=== PATIENT | female | born 1975 | race Caucasian/White ===

== ENCOUNTER → 2017-01-27 | Outpatient (CLI) | payer OTHER ==
[~2017-01-27] MED LIST: ALDOMET250 MG PO; ALLEGRA ALLERG180 M2 PO; ASPI-COR81 MG PO; ATIVAN1 MG PO; Augmentin Xr 101 TER PO; B121000 MCG/1 IM; BACTRIM DS 8001 TA1 PO; BACTRIM DS 8001 TAB PO; BUSPAR10 MG PO; CELEBREX50 MG PO; CELEXA40 MG PO; CETIRIZINE10 MG PO; CIPRO250 MG PO; CIPRO500 MG PO; CIPROFLOXACIN500 MG PO; CLARITIN10 MG PO; CLINDAMYCIN150 MG PO; COMPAZINE5 M1 PO; CYMBALTA60 MG PO; DELTASONE5 MG PO; DIFLUCAN150 MG PO; FLAGYL500 MG PO; FLEXERIL10 MG PO; FLEXERIL5 MG PO; FLONASE 0.05% 121 EA NAS; FLONASE ALLERG9.9 ML NAS; FLONASE0.05 MG/AC NS; FORTEO 250250 MCG/ML IM; FORTEO2.4 ML SQ; HUMIRA40 MG/0.1 SC; HYDROCODONE BIT1 T11 PO; HYDROXYCHLOROQ200 MG PO; IBUPROFEN600 MG PO; IMITREX100 MG PO; IRON325 M1 PO; K-DUR 20MEQ20 MEQ PO; K-DUR20 MEQ PO; KEFLEX500 MG PO; KLOR-CON M2020 ME1 PO; LASIX40 MG PO; LEVAQUIN750 MG PO; LEVOFLOXACIN500 MG PO; LIDODERM 5% PATC1 EA; LIDODERM 5% PATC1 EA PO; LOVENOX40 MG/0.4 SC; MEDROL DOSEPAK4 MG PO; METHOCARBAMOL500 MG PO; METHOTREXATE S2.5 MG PO; MULTI VITAMINS1 TAB PO; NAPROSYN500 MG PO; NATURE'S BLEND F1 MG PO; NEURONTIN300 MG PO; NEURONTIN800 MG PO; NORCO 325 MG-51 TAB PO; NORFLEX100 MG PO; NORVASC5 MG PO; ORPHENADRINE100 MG PO; OSCAL/D,OYSTER250 MG PO; OYSTER SHELL CA1 T20 PO; PEPCID20 MG PO; PERCOCET 325 MG1 TA2 PO; PERIACTIN4 MG PO; PHENERGAN25 M3 PO; PLAQUENIL200 MG PO; PREDNICOT10 MG PO; PREDNICOT20 MG PO; PREDNISONE10 MG PO; PREDNISONE2.5 MG PO; PREDNISONE20 M1 PO; PREDNISONE5 MG PO; PRENATAL1 TA2 PO; PREVACID30 M1 PO; PRILOSEC40 M1 PO; PRILOSEC40 MG PO; PYRIDIUM200 MG PO; ROBAXIN750 MG PO; ROBITUSSIN AC 110 ML PO; ROBITUSSIN DM 105 ML PO; SEASONIQUE1 TAB PO; SUBOXONE 4 MG-1 EACH SL; SUBOXONE 8 MG-21 TA1 SL; TORADOL10 MG PO; TRAMADOL HCL50 MG PO; TYLENOL W/CODEI1 TA2 PO; VANCOCIN125 MG PO; VIBRAMYCIN100 MG PO; VICODIN 5/500 505 MG; VICODIN 5/500 505 MG PO; VISTARIL50 MG PO; VITAMIN B COMPL1 CAP PO; VOLTAREN50 M1 PO; ZANTAC 150150 MG PO; ZITHROMAX Z PA250 MG PO; ZOFRAN ODT4 MG PO; ZOFRAN ODT4 MG SL; ZOFRAN4 MG PO
== END | disposition home or self-care (01) ==
LOC: RAD 11:00
DX: M81.0 Age-related osteoporosis without current pathological fracture (principal); M54.5 Low back pain; Z78.0 Asymptomatic menopausal state; G89.29 Other chronic pain

== ENCOUNTER 2017-02-13 13:42 | Emergency (ER) | payer OTHER ==
[~2017-02-13] VITALS: Wt 59.0 kg
[2017-02-13 13:50] VITALS: BP 113/72
[2017-02-13] MEDS ORDERED: PREDNISONE50 MG PO (14:13)
== END 2017-02-13 14:52 | disposition home or self-care (01) ==
LOC: ED 13:42
DX: I00 Rheumatic fever without heart involvement (principal); F17.200 Nicotine dependence, unspecified, uncomplicated; G89.29 Other chronic pain; M54.9 Dorsalgia, unspecified; M32.9 Systemic lupus erythematosus, unspecified; Z79.899 Other long term (current) drug therapy; Z98.51 Tubal ligation status; Z98.890 Other specified postprocedural states; Z91.041 Radiographic dye allergy status; Z88.8 Allergy status to other drugs, medicaments and biological substances; Z88.6 Allergy status to analgesic agent

== ENCOUNTER → 2017-02-25 | Outpatient (CLI) | payer OTHER ==
[~2017-02-25] MED LIST changes: +PREDNISONE50 MG PO
== END | disposition home or self-care (01) ==
LOC: LAB 14:01
PROVIDERS: Internal Medicine
DX: D50.9 Iron deficiency anemia, unspecified (principal); M05.79 Rheumatoid arthritis with rheumatoid factor of multiple sites without organ or systems involvement

== ENCOUNTER 2017-03-08 00:08 | Emergency (ER) | payer OTHER ==
[~2017-03-08] VITALS: Ht 172.7 cm; Wt 63.5 kg
[2017-03-08 00:58] LABS: BASO % 0.3 % (0.0-1.0); HEMATOCRIT 40.4 % (37.0-47.0); HEMOGLOBIN 13.4 g/dl (12.0-16.0); LYMPH % 9.3 % (27.0-41.0); MEAN CELL VOLUME 92.7 fl (81.0-99.0); MEAN CORPUSCULAR HGB 30.7 pg (27.0-31.0); MEAN CORPUSCULAR HGB CONC 33.2 g/dl (33.0-37.0); MEAN PLATELET VOLUME 10.1 fl (9.6-12.3); MONO # 0.2 10*3/uL (0.1-1.0); MONO % 1.7 % (3.0-9.0); NEUT # 9.9 10*3/uL (2.3-7.9); NEUT % 88.3 % (47.0-73.0); PLATELET COUNT AUTOMATED 386 10*3/uL (130-400); RED BLOOD COUNT 4.36 10*6/uL (4.10-5.10); RED CELL DISTRI WIDTH 12.3 % (0-14.5); WHITE BLOOD COUNT 11.2 10*3/uL (4.8-10.8)
[2017-03-08 01:14] LABS: URINE AMPHETAMINES < 1000 (1000ng/ml); URINE BARBITURATES < 200 (200ng/ml); URINE COCAINE > 300 (300ng/ml)
[2017-03-08 01:20] LABS: ALKALINE PHOSPHATASE 111 U/L (45-117); BILIRUBIN, TOTAL 0.2 mg/dl (0.2-1.0); BUN 8 mg/dl (7-24); CARBON DIOXIDE 28 mmol/L (21-32); CHLORIDE 107 mmol/L (98-107); CPK 121 U/L (26-192); EST GLOM FILT AFRICAN AMERICAN > 60 ml/min; GLUCOSE 102 mg/dL (65-99); LDH 165 U/L (84-246); MAGNESIUM 2.3 mg/dL (1.5-2.1); POTASSIUM 3.4 mmol/L (3.5-5.1); SGOT/AST 14 IU/L (3-35); SGPT/ALT 12 U/L (12-78); SODIUM 142 mmol/L (136-145)
[2017-03-08 01:21] LABS: CKMB 1.1 ng/ml (0.5-3.6); TROPONIN I 0.042 ng/ml (<0.045)
[2017-03-08 02:32] VITALS: BP 134/84
== END 2017-03-08 02:44 | disposition short-term general hospital (02) ==
LOC: ED 00:08
PROVIDERS: Physician Assistant
DX: R56.9 Unspecified convulsions (principal); F17.200 Nicotine dependence, unspecified, uncomplicated; Z91.041 Radiographic dye allergy status; Z88.6 Allergy status to analgesic agent; Z88.8 Allergy status to other drugs, medicaments and biological substances; Z79.899 Other long term (current) drug therapy

== ENCOUNTER 2017-05-31 08:29 | Emergency (ER) | payer OTHER ==
[~2017-05-31] VITALS: Wt 63.5 kg
[2017-05-31 09:06] LABS: BASO # 0.1 10*3/uL (0.0-0.1); BASO % 0.5 % (0.0-1.0); EOS % 0.2 % (1.0-4.0); HEMATOCRIT 42.3 % (37.0-47.0); LYMPH # 2.4 10*3/uL (1.3-4.4); LYMPH % 16.6 % (27.0-41.0); MEAN CELL VOLUME 89.6 fl (81.0-99.0); MEAN CORPUSCULAR HGB 29.7 pg (27.0-31.0); MEAN CORPUSCULAR HGB CONC 33.1 g/dl (33.0-37.0); MEAN PLATELET VOLUME 10.2 fl (9.6-12.3); MONO # 0.7 10*3/uL (0.1-1.0); MONO % 4.9 % (3.0-9.0); NEUT % 77.4 % (47.0-73.0); PLATELET COUNT AUTOMATED 387 10*3/uL (130-400); RED BLOOD COUNT 4.72 10*6/uL (4.10-5.10); RED CELL DISTRI WIDTH 12.5 % (0-14.5); WHITE BLOOD COUNT 14.2 10*3/uL (4.8-10.8)
[2017-05-31 09:24] LABS: ALKALINE PHOSPHATASE 104 U/L (45-117); BUN 10 mg/dl (7-24); CHLORIDE 104 mmol/L (98-107); CREATININE 0.76 mg/dL (0.55-1.02); ETHYL ALCOHOL < 3.0 mg/dl (<3); MAGNESIUM 2.2 mg/dL (1.5-2.1); POTASSIUM 3.3 mmol/L (3.5-5.1); SGOT/AST 14 IU/L (3-35); SGPT/ALT 10 U/L (12-78); SODIUM 136 mmol/L (136-145); TOTAL PROTEIN 8.2 gm/dL (6.4-8.2)
[2017-05-31 10:33] LABS: BILIRUBIN NEGATIVE (NEGATIVE); BLOOD NEGATIVE (NEGATIVE); CLARITY CLEAR (CLEAR); COLOR YELLOW (YELLOW); GLUCOSE NEGATIVE (NEGATIVE); KETONE NEGATIVE (NEGATIVE); LEUKO ESTERASE NEGATIVE (NEGATIVE); NITRITE NEGATIVE (NEGATIVE); SPECIFIC GRAVITY 1.025 (1.005-1.030); UROBILINOGEN 0.2 E.U./dl (0.2-1.0)
[2017-05-31 10:46] LABS: URINE AMPHETAMINES < 1000 (1000ng/ml); URINE BARBITURATES < 200 (200ng/ml); URINE BENZODIAZEPINES < 200 (200ng/ml); URINE CANNABINOIDS (THC) < 50 (50ng/ml); URINE COCAINE > 300 (300ng/ml); URINE METHADONE < 300 (300ng/ml); URINE OPIATES < 300 (300ng/ml)
[2017-05-31 10:54] LABS: URINE PHENCYCLIDINE < 25 (25ng/ml)
[2017-05-31 13:10] VITALS: BP 110/70
== END 2017-05-31 13:51 | disposition short-term general hospital (02) ==
LOC: ED 08:29
PROVIDERS: Emergency Medicine
DX: R56.9 Unspecified convulsions (principal); F19.10 Other psychoactive substance abuse, uncomplicated; M06.9 Rheumatoid arthritis, unspecified; F14.10 Cocaine abuse, uncomplicated; F17.210 Nicotine dependence, cigarettes, uncomplicated; Z91.041 Radiographic dye allergy status; Z88.6 Allergy status to analgesic agent; Z88.8 Allergy status to other drugs, medicaments and biological substances; Z79.899 Other long term (current) drug therapy

== ENCOUNTER → 2017-10-19 | Outpatient (CLI) | payer OTHER ==
[~2017-10-19] MED LIST changes: +Motrin,Rufen800 MG PO
== END | disposition home or self-care (01) ==
LOC: RAD 12:40
DX: M25.532 Pain in left wrist (principal); M25.432 Effusion, left wrist; W19.XXXA Unspecified fall, initial encounter; Y93.89 Activity, other specified; Y92.89 Other specified places as the place of occurrence of the external cause; Y99.8 Other external cause status

== ENCOUNTER 2017-10-20 15:52 | Emergency (ER) | payer OTHER ==
[~2017-10-20] VITALS: Ht 160 cm; Wt 53.5 kg
[~2017-10-20 15:52] MED LIST changes: -Motrin,Rufen800 MG PO
[2017-10-20 16:00] VITALS: BP 142/81
[2017-10-20] MEDS ORDERED: Motrin,Rufen800 MG PO (17:03)
== END 2017-10-20 16:51 | disposition home or self-care (01) ==
LOC: ED 15:52
DX: S60.212A Contusion of left wrist, initial encounter (principal); F17.200 Nicotine dependence, unspecified, uncomplicated; Z91.041 Radiographic dye allergy status; Z88.8 Allergy status to other drugs, medicaments and biological substances; Z79.899 Other long term (current) drug therapy; Z98.51 Tubal ligation status; W00.0XXA Fall on same level due to ice and snow, initial encounter; Y93.89 Activity, other specified; Y92.89 Other specified places as the place of occurrence of the external cause; Y99.8 Other external cause status

== ENCOUNTER 2018-02-23 18:15 | Inpatient (IN) | payer OTHER ==
[~2018-02-23] VITALS: Ht 162.5 cm; Wt 58.3 kg
--- NOTE | ~2018-02-23 | EKG ---
[place], [place] ELECTROCARDIOGRAM REPORT NAME: TAM SHETTY UNIT #: [id number] ROOM: [facility] DOCTOR: MICHELINE HOGUE MD BIRTHDATE: [birth year] DOS: 02/23/2018 TIME: 19:52:58 RATE AND RHYTHM: Normal sinus rhythm at 99 beats per minute. NM interval 112 milliseconds, QRS duration 97 milliseconds, corrected QT interval 457 milliseconds. QRS axis 87. IMPRESSION: Normal EKG. MICHELINE HOGUE MD CM:EKGRPT:ELECTROCARDIOGRAM REPORT [id number] MICEHLINE HOGUE MD
[~2018-02-23 18:15] MED LIST changes: +Bactroban Oint22 GM T; +Motrin,Rufen800 MG PO; +SEPTDS PO
[2018-02-23 18:20] VITALS: BP 162/89
[2018-02-23 20:02] LABS: BASO # 0.1 10*3/uL (0.0-0.1); BASO % 0.5 % (0.0-1.0); EOS % 0.1 % (1.0-4.0); HEMATOCRIT 44.4 % (37.0-47.0); HEMOGLOBIN 14.6 g/dl (12.0-16.0); LYMPH # 2.8 10*3/uL (1.3-4.4); LYMPH % 25.5 % (27.0-41.0); MEAN CELL VOLUME 91.5 fl (81.0-99.0); MEAN CORPUSCULAR HGB 30.1 pg (27.0-31.0); MEAN CORPUSCULAR HGB CONC 32.9 g/dl (33.0-37.0); MEAN PLATELET VOLUME 9.9 fl (9.6-12.3); MONO # 0.5 10*3/uL (0.1-1.0); MONO % 4.7 % (3.0-9.0); NEUT # 7.6 10*3/uL (2.3-7.9); NEUT % 68.9 % (47.0-73.0); PLATELET COUNT AUTOMATED 396 10*3/uL (130-400); RED BLOOD COUNT 4.85 10*6/uL (4.10-5.10); RED CELL DISTRI WIDTH 14.4 % (0-14.5)
[2018-02-23 20:13] LABS: ACT PARTIAL THROMBO TIME 26.3 SECONDS (20.8-31.5); INTERNATIONAL NORM RATIO 0.9 (2.0-3.5)
[2018-02-23 20:22] LABS: BILIRUBIN NEGATIVE (NEGATIVE); BLOOD TRACE-LYSED (NEGATIVE); CLARITY CLEAR (CLEAR); COLOR YELLOW (YELLOW); GLUCOSE NEGATIVE (NEGATIVE); KETONE NEGATIVE (NEGATIVE); LEUKO ESTERASE NEGATIVE (NEGATIVE); NITRITE NEGATIVE (NEGATIVE); PH 5.5 (5.0-9.0); SPECIFIC GRAVITY >= 1.030 (1.005-1.030)
[2018-02-23 20:31] LABS: BACTERIA 2+; MUCOUS 1+
[2018-02-23 20:59] LABS: ALBUMIN 3.8 gm/dl (3.1-4.5); ALKALINE PHOSPHATASE 199 U/L (45-117); BUN 10 mg/dl (7-24); CHLORIDE 104 mmol/L (98-107); CREATININE 0.72 mg/dL (0.55-1.02); LIPASE 93 U/L (73-393); POTASSIUM 3.6 mmol/L (3.5-5.1); SGOT/AST 160 IU/L (3-35); SGPT/ALT 199 U/L (12-78); SODIUM 137 mmol/L (136-145); TOTAL PROTEIN 8.3 gm/dL (6.4-8.2); TROPONIN I 0.015 ng/ml (<0.045)
[2018-02-24 00:02] VITALS: BP 121/88
[2018-02-24] MEDS ORDERED: OMEPRAZOLE40 MG PO (00:30)
[2018-02-24] MEDS ORDERED: DIAZEPAM10 M1 PO (00:34)
[2018-02-24] MEDS ORDERED: GABAPENTIN TAB600 MG PO (00:36)
[2018-02-24] MEDS ORDERED: VENLAFAXINE HY150 M2 PO (00:37)
[2018-02-24] MEDS ORDERED: MOTRIN IB200 M1 PO (00:38)
[2018-02-24 03:03] LABS: HEMATOCRIT 39.6 % (37.0-47.0); HEMOGLOBIN 13.2 g/dl (12.0-16.0); MEAN CELL VOLUME 90.6 fl (81.0-99.0); MEAN CORPUSCULAR HGB 30.2 pg (27.0-31.0); MEAN CORPUSCULAR HGB CONC 33.3 g/dl (33.0-37.0); MEAN PLATELET VOLUME 9.7 fl (9.6-12.3); PLATELET COUNT AUTOMATED 370 10*3/uL (130-400); RED BLOOD COUNT 4.37 10*6/uL (4.10-5.10); RED CELL DISTRI WIDTH 14.3 % (0-14.5); WHITE BLOOD COUNT 11.4 10*3/uL (4.8-10.8)
[2018-02-24 03:26] LABS: ALBUMIN 3.5 gm/dl (3.1-4.5); ALKALINE PHOSPHATASE 176 U/L (45-117); BUN 9 mg/dl (7-24); CHLORIDE 107 mmol/L (98-107); CHOLESTEROL 90 mg/dL (<200); CREATININE 0.63 mg/dL (0.55-1.02); HDL CHOLESTEROL 45 mg/dl (40-60); LDL CHOLESTEROL 32 mg/dL (9-159); PHOSPHOROUS 2.6 mg/dL (2.5-4.9); POTASSIUM 3.8 mmol/L (3.5-5.1); SGOT/AST 130 IU/L (3-35); SGPT/ALT 173 U/L (12-78); SODIUM 138 mmol/L (136-145); TOTAL PROTEIN 7.6 gm/dL (6.4-8.2); TRIGLYCERIDES 64 mg/dl (<150); VLDL CHOLESTEROL 13 mg/dL (6-40)
[2018-02-24 03:30] LABS: TOTAL CELLS COUNTED 100 #CELLS
[2018-02-24 03:31] LABS: PLATELET SUFFICIENCY NORMAL (NORMAL)
[2018-02-24 03:35] LABS: THYROID STIM HORMONE (HS) 0.312 uIU/ml (0.358-4.75)
[2018-02-24 07:14] LABS: VITAMIN D, 25-HYDROXY 13.3 ng/mL (30-100)
[2018-02-24 08:00] VITALS: BP 115/60
[2018-02-24 12:00] VITALS: BP 115/63
[2018-02-24 16:00] VITALS: BP 122/68
[2018-02-24 20:00] VITALS: BP 123/68
[2018-02-25] VITALS: BP 128/80
[2018-02-25 06:43] LABS: BASO % 0.3 % (0.0-1.0); HEMATOCRIT 36.4 % (37.0-47.0); HEMOGLOBIN 11.9 g/dl (12.0-16.0); LYMPH # 3.2 10*3/uL (1.3-4.4); LYMPH % 27.6 % (27.0-41.0); MEAN CELL VOLUME 92.4 fl (81.0-99.0); MEAN CORPUSCULAR HGB 30.2 pg (27.0-31.0); MEAN CORPUSCULAR HGB CONC 32.7 g/dl (33.0-37.0); MEAN PLATELET VOLUME 10.8 fl (9.6-12.3); MONO # 0.8 10*3/uL (0.1-1.0); MONO % 6.4 % (3.0-9.0); NEUT # 7.7 10*3/uL (2.3-7.9); NEUT % 65.4 % (47.0-73.0); PLATELET COUNT AUTOMATED 367 10*3/uL (130-400); RED BLOOD COUNT 3.94 10*6/uL (4.10-5.10); RED CELL DISTRI WIDTH 14.5 % (0-14.5); WHITE BLOOD COUNT 11.7 10*3/uL (4.8-10.8)
[2018-02-25 07:01] LABS: ALBUMIN 3.2 gm/dl (3.1-4.5); BUN 10 mg/dl (7-24); CHLORIDE 109 mmol/L (98-107); POTASSIUM 3.5 mmol/L (3.5-5.1); SODIUM 141 mmol/L (136-145)
[2018-02-25 07:03] LABS: ALKALINE PHOSPHATASE 145 U/L (45-117); CREATININE 0.57 mg/dL (0.55-1.02); SGOT/AST 60 IU/L (3-35); SGPT/ALT 105 U/L (12-78); TOTAL PROTEIN 6.7 gm/dL (6.4-8.2)
[2018-02-25 08:00] VITALS: BP 109/67
[2018-02-25 09:05] LABS: HEPATITIS B SURFACE AG Negative (Negative)
[2018-02-25 10:40] LABS: HEPATITIS C VIRUS ANTIBODY >11.0 s/co (0.0-0.9)
[2018-02-25 12:00] VITALS: BP 127/66
[2018-02-25] MEDS ORDERED: ALENDRONATE SOD70 M1 PO (14:10)
[2018-02-25] MEDS ORDERED: PREDNISONE20 M1 PO (14:10)
[2018-02-25] MEDS ORDERED: SEPTDS PO (14:10)
[2018-02-25] MEDS ORDERED: LORAZEPAM0.5 MG PO (14:10)
[2018-02-25] MEDS ORDERED: VITAMIN D-32000 UNIT PO (14:10)
[2018-02-26 06:08] LABS: AFP TUMOR MARKER 002253 1.5 ng/mL (0.0-8.3)
[2018-02-26 19:06] LABS: HEPATITIS C QNT 3090000 IU/mL (.)
[2018-02-27 20:06] LABS: HCV LOG10 6.859 (.); HEPATITIS C QUANTITATION 7220000 IU/mL (.)
[2018-03-01 09:04] LABS: HIV 1 & 2 AB NOTE Negative (.); HIV 1 AB Negative (Negative); HIV 1+2 AB + HIV1 P24 AG Reactive (Non Reactive); HIV 2 AB Negative (Negative)
== END 2018-02-25 15:02 | disposition home or self-care (01) | DRG 545 ==
LOC: ED 18:15 → 5E 22:50 → EDHOLD 22:50 → 5E 23:25
PROVIDERS: Internal Medicine; Internal Medicine Hospice and Palliative Medicine; Nurse Practitioner Family
DX: M06.09 Rheumatoid arthritis without rheumatoid factor, multiple sites (principal); R65.11 Systemic inflammatory response syndrome (SIRS) of non-infectious origin with acute organ dysfunction; E87.8 Other disorders of electrolyte and fluid balance, not elsewhere classified; M32.9 Systemic lupus erythematosus, unspecified; E83.41 Hypermagnesemia; G62.9 Polyneuropathy, unspecified; M75.01 Adhesive capsulitis of right shoulder; D72.810 Lymphocytopenia; D72.829 Elevated white blood cell count, unspecified; R74.0 Nonspecific elevation of levels of transaminase and lactic acid dehydrogenase [LDH]; R73.9 Hyperglycemia, unspecified; M54.9 Dorsalgia, unspecified; M81.0 Age-related osteoporosis without current pathological fracture; I73.00 Raynaud's syndrome without gangrene; R29.898 Other symptoms and signs involving the musculoskeletal system; K21.9 Gastro-esophageal reflux disease without esophagitis; G89.29 Other chronic pain; R31.29 Other microscopic hematuria; R82.71 Bacteriuria; D64.9 Anemia, unspecified; R76.8 Other specified abnormal immunological findings in serum; F41.9 Anxiety disorder, unspecified; Z71.6 Tobacco abuse counseling; Z98.51 Tubal ligation status; Z87.891 Personal history of nicotine dependence; Z82.3 Family history of stroke; Z83.6 Family history of other diseases of the respiratory system; Z88.8 Allergy status to other drugs, medicaments and biological substances; Z91.041 Radiographic dye allergy status; Z79.899 Other long term (current) drug therapy; R07.89 Other chest pain; R09.1 Pleurisy

== ENCOUNTER → 2018-03-05 | Outpatient (CLI) | payer OTHER ==
[~2018-03-05] MED LIST changes: +ALENDRONATE SOD70 M1 PO; +DIAZEPAM10 M1 PO; +GABAPENTIN TAB600 MG PO; +LORAZEPAM0.5 MG PO; +MOTRIN IB200 M1 PO; +OMEPRAZOLE40 MG PO; +TYLENOL325 M1 PO; +VENLAFAXINE HY150 M2 PO; +VITAMIN D-32000 UNIT PO
[2018-03-07 13:07] LABS: HIV 1+2 AB + HIV1 P24 AG Non Reactive (Non Reactive)
== END | disposition home or self-care (01) ==
LOC: LAB 16:01
PROVIDERS: Internal Medicine
DX: Z21 Asymptomatic human immunodeficiency virus [HIV] infection status (principal)

== ENCOUNTER → 2018-03-12 | Outpatient (CLI) | payer OTHER | END | disposition home or self-care (01) | LOC: LAB 14:27 | DX: M79.674 Pain in right toe(s) (principal); Z21 Asymptomatic human immunodeficiency virus [HIV] infection status ==

== ENCOUNTER 2018-03-14 07:01 | Emergency (ER) | payer OTHER ==
[~2018-03-14] VITALS: Ht 162.5 cm; Wt 61.2 kg
[2018-03-14 07:01] VITALS: BP 129/77
[~2018-03-14 07:01] MED LIST changes: -TYLENOL325 M1 PO
[2018-03-14] MEDS ORDERED: PREDNISONE10 MG PO (08:39)
[2018-03-14] MEDS ORDERED: TYLENOL325 M1 PO (08:39)
== END 2018-03-14 08:47 | disposition home or self-care (01) ==
LOC: ED 07:01
DX: M06.9 Rheumatoid arthritis, unspecified (principal); F17.200 Nicotine dependence, unspecified, uncomplicated; G89.29 Other chronic pain; K21.9 Gastro-esophageal reflux disease without esophagitis; E78.00 Pure hypercholesterolemia, unspecified; F14.10 Cocaine abuse, uncomplicated; G62.9 Polyneuropathy, unspecified; M32.9 Systemic lupus erythematosus, unspecified; Z98.51 Tubal ligation status; Z98.890 Other specified postprocedural states; Z79.899 Other long term (current) drug therapy; Z91.041 Radiographic dye allergy status; Z88.6 Allergy status to analgesic agent; Z88.8 Allergy status to other drugs, medicaments and biological substances

== ENCOUNTER 2018-05-30 18:45 | Emergency (ER) | payer OTHER ==
[~2018-05-30] VITALS: Ht 160 cm; Wt 59.0 kg
[~2018-05-30 18:45] MED LIST changes: +KETOROLAC10 MG PO; +TYLENOL325 M1 PO
[2018-06-21] MEDS ORDERED: KETOROLAC10 MG PO (16:23)
[2018-06-21] MEDS ORDERED: MEDROL DOSEPAK4 MG PO (16:34)
[2018-07-22] MEDS ORDERED: Zofran4 MG SL (20:13)
[2018-07-22] MEDS ORDERED: IBU800 MG PO (20:13)
[2018-08-08] MEDS ORDERED: Motrin,Rufen800 MG PO (17:39)
[2018-08-08] MEDS ORDERED: PREDNISONE20 M1 PO (17:39)
== END 2018-05-30 19:23 | disposition left against medical advice (07) ==
LOC: ED 18:45
DX: T65.91XA Toxic effect of unspecified substance, accidental (unintentional), initial encounter (principal); F17.200 Nicotine dependence, unspecified, uncomplicated; Z91.041 Radiographic dye allergy status; Z88.8 Allergy status to other drugs, medicaments and biological substances; Z79.899 Other long term (current) drug therapy; Z53.21 Procedure and treatment not carried out due to patient leaving prior to being seen by health care provider; Y92.89 Other specified places as the place of occurrence of the external cause

== ENCOUNTER 2018-07-06 15:53 | Emergency (ER) | payer OTHER ==
[~2018-07-06] VITALS: Ht 162.5 cm; Wt 61.2 kg
[2018-07-06 15:54] VITALS: BP 145/80
[2018-07-06] MEDS ORDERED: PREDNISONE20 M1 PO (17:27)
[2018-07-06] MEDS ORDERED: IBUPROFEN600 MG PO (17:27)
[2018-07-22] MEDS ORDERED: IBU800 MG PO (20:13)
[2018-07-22] MEDS ORDERED: Zofran4 MG SL (20:13)
[2018-08-08] MEDS ORDERED: PREDNISONE20 M1 PO (17:39)
[2018-08-08] MEDS ORDERED: Motrin,Rufen800 MG PO (17:39)
== END 2018-07-06 17:30 | disposition home or self-care (01) ==
LOC: ED 15:53
DX: M06.9 Rheumatoid arthritis, unspecified (principal); F17.200 Nicotine dependence, unspecified, uncomplicated; Z91.041 Radiographic dye allergy status; Z88.8 Allergy status to other drugs, medicaments and biological substances; Z79.899 Other long term (current) drug therapy; Z98.51 Tubal ligation status

== ENCOUNTER 2018-07-13 17:39 | Inpatient (IN) | payer OTHER ==
[~2018-07-13] VITALS: Ht 162.5 cm; Wt 64.1 kg
--- NOTE | ~2018-07-13 | PR ---
[place], [place] PROGRESS NOTE NAME: TAM SHETTY [facility] #: [id number] UNIT #: [id number] ROOM: 501 DOCTOR: SHANNON DUBOSE MD BIRTHDATE: [birth year] DOS: 07/17/2018 SUBJECTIVE: The patient has been admitted with cellulitis and abscess of the right axilla with MRSA infection. She is gradually getting better and no fever or chills. No chest pain. She is still having some swelling of the right arm, but it is getting gradually better and she denies having too much pain, no difficulty breathing, no nausea, no vomiting, no fever or chills. The patient had recurring infection of MRSA. She has leukocytosis, tachycardia, mild protein malnutrition, hypokalemia, systemic lupus erythematosus, rheumatoid arthritis and the patient has history of tobacco abuse and drug abuse. OBJECTIVE: GENERAL: On examination, the patient is conscious, alert and oriented, does not seem to be in any distress. The wound in the arm is having some discharge. There is some swelling of the right arm below the wound. I advised the patient to keep it elevated. VITAL SIGNS: Her blood pressure is 129/82, pulse is 126, respirations 18, temperature 98.7. CHEST: Clear. HEART: Regular. ABDOMEN: Soft. LABORATORY DATA: Her creatinine is 0.54. Vancomycin level 13.2. The patient is gradually improving. SHANNON DUBOSE MD CM:PNTRANS 1327 [id number] SHANNON DUBOSE MD 07/26/18 0752 interface
--- NOTE | ~2018-07-13 | PR ---
[place], [place] PROGRESS NOTE NAME: TAM SHETTY [facility] #: [id number] UNIT #: [id number] ROOM: 501 DOCTOR: SHANNON DUBOSE MD BIRTHDATE: [birth year] DOS: SUBJECTIVE: The patient has been admitted to hospital with abscess and cellulitis of the right axilla, right arm. She is progressively getting better. Discharge from her wound is decreasing and the swelling of her right arm is much better and pain is much better and her CBC today showed white count 13,400, hemoglobin 12.7, hematocrit 39 showing much improvement and BUN is 4, creatinine 0.54. OBJECTIVE: VITAL SIGNS: Her blood pressure 106/77, pulse 99, respirations 20, temperature 98.5. CHEST: Clear. HEART: Regular. ABDOMEN: Soft. The patient will possibly be discharged tomorrow. SHANNON DUBOSE MD CM:PNCHRIST 1059 24 SHANNON DUBOSE MD 07/18/18 182 interface
[2018-07-13 17:40] VITALS: BP 135/85
[2018-07-13 18:57] LABS: BASO # 0.1 10*3/uL (0.0-0.1); BASO % 0.4 % (0.0-1.0); EOS # 0.1 10*3/uL (0.0-0.4); EOS % 0.5 % (1.0-4.0); HEMATOCRIT 37.6 % (37.0-47.0); HEMOGLOBIN 12.7 g/dl (12.0-16.0); LYMPH # 3.2 10*3/uL (1.3-4.4); LYMPH % 17.2 % (27.0-41.0); MEAN CELL VOLUME 94.9 fl (81.0-99.0); MEAN CORPUSCULAR HGB 32.1 pg (27.0-31.0); MEAN CORPUSCULAR HGB CONC 33.8 g/dl (33.0-37.0); MEAN PLATELET VOLUME 9.8 fl (9.6-12.3); MONO # 1.1 10*3/uL (0.1-1.0); NEUT % 74.8 % (47.0-73.0); PLATELET COUNT AUTOMATED 402 10*3/uL (130-400); RED BLOOD COUNT 3.96 10*6/uL (4.10-5.10); WHITE BLOOD COUNT 18.7 10*3/uL (4.8-10.8)
[2018-07-13 19:13] LABS: ALBUMIN 3.4 gm/dl (3.1-4.5); ALKALINE PHOSPHATASE 125 U/L (45-117); BUN 7 mg/dl (7-24); CHLORIDE 106 mmol/L (98-107); CREATININE 0.59 mg/dL (0.55-1.02); POTASSIUM 3.2 mmol/L (3.5-5.1); SGOT/AST 45 IU/L (3-35); SGPT/ALT 81 U/L (12-78); SODIUM 138 mmol/L (136-145); TOTAL PROTEIN 7.1 gm/dL (6.4-8.2)
[2018-07-13 20:21] LABS: BILIRUBIN NEGATIVE (NEGATIVE); BLOOD NEGATIVE (NEGATIVE); CLARITY CLEAR (CLEAR); COLOR YELLOW (YELLOW); GLUCOSE NEGATIVE (NEGATIVE); KETONE NEGATIVE (NEGATIVE); LEUKO ESTERASE NEGATIVE (NEGATIVE); NITRITE NEGATIVE (NEGATIVE); PH 6.5 (5.0-9.0); SPECIFIC GRAVITY < 1.005 (1.005-1.030); UROBILINOGEN 0.2 E.U./dl (0.2-1.0)
[2018-07-13 20:29] LABS: BACTERIA TRACE
[2018-07-13 20:30] LABS: RBC 0-2 rbc/hpf (0-2)
[2018-07-13 21:41] VITALS: BP 121/82
[2018-07-13 22:30] VITALS: BP 123/73
[2018-07-13 22:39] VITALS: BP 123/73
[2018-07-13] MEDS ORDERED: EFFEXOR XR150 M1 PO (22:54)
[2018-07-13] MEDS ORDERED: OSCAL/D,OYSTER250 MG PO (22:55)
[2018-07-13] MEDS ORDERED: TRAZODONE100 MG PO (22:55)
[2018-07-13] MEDS ORDERED: IRON325 M1 PO (22:56)
[2018-07-14] VITALS (8 sets, daily range): BP systolic 112–139; BP diastolic 62–82
[2018-07-14 06:31] LABS: BASO # 0.1 10*3/uL (0.0-0.1); BASO % 0.2 % (0.0-1.0); EOS # 0.1 10*3/uL (0.0-0.4); EOS % 0.2 % (1.0-4.0); HEMATOCRIT 35.2 % (37.0-47.0); HEMOGLOBIN 11.6 g/dl (12.0-16.0); LYMPH # 2.4 10*3/uL (1.3-4.4); MEAN CELL VOLUME 96.4 fl (81.0-99.0); MEAN CORPUSCULAR HGB 31.8 pg (27.0-31.0); MEAN PLATELET VOLUME 9.7 fl (9.6-12.3); MONO # 1.2 10*3/uL (0.1-1.0); MONO % 6.2 % (3.0-9.0); NEUT # 16.1 10*3/uL (2.3-7.9); NEUT % 80.3 % (47.0-73.0); PLATELET COUNT AUTOMATED 336 10*3/uL (130-400); RED BLOOD COUNT 3.65 10*6/uL (4.10-5.10); RED CELL DISTRI WIDTH 14.1 % (0-14.5); WHITE BLOOD COUNT 20.1 10*3/uL (4.8-10.8)
[2018-07-14 07:05] LABS: ALBUMIN 2.7 gm/dl (3.1-4.5); BUN 6 mg/dl (7-24); CHLORIDE 108 mmol/L (98-107); CHOLESTEROL 52 mg/dL (<200); CREATININE 0.41 mg/dL (0.55-1.02); HDL CHOLESTEROL 47 mg/dl (40-60); POTASSIUM 3.9 mmol/L (3.5-5.1); SGOT/AST 49 IU/L (3-35); SGPT/ALT 71 U/L (12-78); SODIUM 141 mmol/L (136-145)
[2018-07-14 07:13] LABS: ALKALINE PHOSPHATASE 104 U/L (45-117); TOTAL PROTEIN 5.9 gm/dL (6.4-8.2); TRIGLYCERIDES 47 mg/dl (<150)
[2018-07-14 09:39] LABS: VITAMIN D, 25-HYDROXY 51.4 ng/mL (30-100)
[2018-07-15] VITALS: BP 131/70
[2018-07-15 08:00] VITALS: BP 130/70
[2018-07-15 12:00] VITALS: BP 130/78
[2018-07-15 16:00] VITALS: BP 114/71
[2018-07-15 20:00] VITALS: BP 124/102
[2018-07-16] VITALS: BP 122/73
[2018-07-16 08:00] VITALS: BP 130/70
[2018-07-16 12:00] VITALS: BP 113/75
[2018-07-16 16:00] VITALS: BP 135/81
[2018-07-16 20:00] VITALS: BP 120/77
[2018-07-17] VITALS: BP 104/59
[2018-07-17 07:19] LABS: BUN 4 mg/dl (7-24); CREATININE 0.54 mg/dL (0.55-1.02)
[2018-07-17 08:00] VITALS: BP 110/66
[2018-07-17 12:00] VITALS: BP 129/82
[2018-07-17 16:00] VITALS: BP 116/82
[2018-07-17 20:00] VITALS: BP 129/78
[2018-07-18] VITALS: BP 117/74
[2018-07-18 06:39] LABS: HEMOGLOBIN 12.6 g/dl (12.0-16.0); MEAN CELL VOLUME 96.5 fl (81.0-99.0); MEAN CORPUSCULAR HGB 31.2 pg (27.0-31.0); MEAN CORPUSCULAR HGB CONC 32.3 g/dl (33.0-37.0); MEAN PLATELET VOLUME 10.3 fl (9.6-12.3); PLATELET COUNT AUTOMATED 353 10*3/uL (130-400); RED BLOOD COUNT 4.04 10*6/uL (4.10-5.10); RED CELL DISTRI WIDTH 14.1 % (0-14.5); WHITE BLOOD COUNT 13.4 10*3/uL (4.8-10.8)
[2018-07-18 07:26] LABS: ATYPICAL LYMPHS 1 % (0-0); PLATELET SUFFICIENCY NORMAL (NORMAL); TOTAL CELLS COUNTED 100 #CELLS
[2018-07-18 08:00] VITALS: BP 106/77
[2018-07-18 11:57] VITALS: BP 118/74
[2018-07-18 16:00] VITALS: BP 129/84
[2018-07-18 20:00] VITALS: BP 136/89
[2018-07-19] VITALS: BP 111/74
[2018-07-19 08:00] VITALS: BP 120/85
[2018-07-19 12:00] VITALS: BP 134/94
[2018-07-19 16:00] VITALS: BP 121/78
[2018-07-19] MEDS ORDERED: PERCOCET 5-3251 EACH PO (18:32)
[2018-07-19] MEDS ORDERED: DOXYCYCLINE100 M3 PO (18:32)
[2018-07-19] MEDS ORDERED: TRAZODONE100 MG PO (18:32)
[2018-07-22] MEDS ORDERED: IBU800 MG PO (20:13)
[2018-07-22] MEDS ORDERED: Zofran4 MG SL (20:13)
[2018-08-08] MEDS ORDERED: Motrin,Rufen800 MG PO (17:39)
[2018-08-08] MEDS ORDERED: PREDNISONE20 M1 PO (17:39)
== END 2018-07-19 19:15 | disposition home or self-care (01) | DRG 872 ==
LOC: ED 17:39 → EDHOLD 22:01 → 5E 22:01
PROVIDERS: Emergency Medicine; Internal Medicine
PROC: 0H9BXZZ Drainage of Right Upper Arm Skin, External Approach (ICD-10-PCS; principal; 2018-07-14)
DX: A41.9 Sepsis, unspecified organism (principal); L03.111 Cellulitis of right axilla; E44.1 Mild protein-calorie malnutrition; F33.9 Major depressive disorder, recurrent, unspecified; L02.411 Cutaneous abscess of right axilla; E87.6 Hypokalemia; M32.8 Other forms of systemic lupus erythematosus; I73.00 Raynaud's syndrome without gangrene; M81.8 Other osteoporosis without current pathological fracture; E86.0 Dehydration; R07.89 Other chest pain; M06.9 Rheumatoid arthritis, unspecified; M54.9 Dorsalgia, unspecified; G89.29 Other chronic pain; G62.9 Polyneuropathy, unspecified; K21.9 Gastro-esophageal reflux disease without esophagitis; E55.9 Vitamin D deficiency, unspecified; R73.9 Hyperglycemia, unspecified; F17.210 Nicotine dependence, cigarettes, uncomplicated; B00.9 Herpesviral infection, unspecified; A49.02 Methicillin resistant Staphylococcus aureus infection, unspecified site; Z98.51 Tubal ligation status; Z82.49 Family history of ischemic heart disease and other diseases of the circulatory system; Z82.5 Family history of asthma and other chronic lower respiratory diseases; Z71.6 Tobacco abuse counseling; Z88.8 Allergy status to other drugs, medicaments and biological substances; Z91.041 Radiographic dye allergy status; Z79.899 Other long term (current) drug therapy; Z68.24 Body mass index [BMI] 24.0-24.9, adult

== ENCOUNTER 2018-07-30 17:47 | Emergency (ER) | payer SELFPAY ==
[~2018-07-30] VITALS: Wt 63.5 kg
[~2018-07-30 17:47] MED LIST changes: +DOXYCYCLINE100 M3 PO; +EFFEXOR XR150 M1 PO; +IBU800 MG PO; +PERCOCET 5-3251 EACH PO; +TRAZODONE100 MG PO; +Zofran4 MG SL
[2018-07-30 17:48] VITALS: BP 142/93
[2018-07-30] MEDS ORDERED: PREDNISONE10 MG PO (17:52)
[2018-08-08] MEDS ORDERED: PREDNISONE20 M1 PO (17:39)
[2018-08-08] MEDS ORDERED: Motrin,Rufen800 MG PO (17:39)
== END 2018-07-30 18:02 | disposition home or self-care (01) ==
LOC: ED 17:47
DX: M06.9 Rheumatoid arthritis, unspecified (principal); R03.0 Elevated blood-pressure reading, without diagnosis of hypertension; G89.29 Other chronic pain; K21.9 Gastro-esophageal reflux disease without esophagitis; M32.9 Systemic lupus erythematosus, unspecified; F17.200 Nicotine dependence, unspecified, uncomplicated; Z91.041 Radiographic dye allergy status; Z88.8 Allergy status to other drugs, medicaments and biological substances; Z79.1 Long term (current) use of non-steroidal anti-inflammatories (NSAID); Z79.899 Other long term (current) drug therapy

== ENCOUNTER 2018-09-01 15:35 | Emergency (ER) | payer OTHER ==
[~2018-09-01] VITALS: Ht 162.5 cm; Wt 65.8 kg
[2018-09-01 15:36] VITALS: BP 146/88
[2018-09-01] MEDS ORDERED: IBU800 MG PO (16:20)
[2018-09-01] MEDS ORDERED: PREDNISONE50 MG PO (16:20)
== END 2018-09-01 16:15 | disposition home or self-care (01) ==
LOC: ED 15:35
DX: M06.9 Rheumatoid arthritis, unspecified (principal); F17.200 Nicotine dependence, unspecified, uncomplicated; Z91.041 Radiographic dye allergy status; Z88.8 Allergy status to other drugs, medicaments and biological substances; Z79.899 Other long term (current) drug therapy; Z98.51 Tubal ligation status

== ENCOUNTER 2018-09-10 14:24 | Emergency (ER) | payer OTHER ==
[~2018-09-10] VITALS: Ht 162.5 cm; Wt 63.5 kg
[2018-09-10 14:26] VITALS: BP 133/87
[2018-09-10] MEDS ORDERED: MEDROL DOSEPAK4 MG PO (16:48)
[2018-09-10] MEDS ORDERED: OMNICEF300 MG PO (16:48)
== END 2018-09-10 17:10 | disposition home or self-care (01) ==
LOC: ED 14:24
DX: J32.9 Chronic sinusitis, unspecified (principal); M54.6 Pain in thoracic spine; M54.5 Low back pain; K02.9 Dental caries, unspecified; G89.29 Other chronic pain; K21.9 Gastro-esophageal reflux disease without esophagitis; M06.9 Rheumatoid arthritis, unspecified; M81.0 Age-related osteoporosis without current pathological fracture; F17.200 Nicotine dependence, unspecified, uncomplicated; Z91.041 Radiographic dye allergy status; Z88.8 Allergy status to other drugs, medicaments and biological substances; Z79.899 Other long term (current) drug therapy

== ENCOUNTER 2018-09-29 13:25 | Emergency (ER) | payer OTHER ==
[~2018-09-29] VITALS: Ht 162.5 cm; Wt 63.5 kg
[~2018-09-29 13:25] MED LIST changes: +OMNICEF300 MG PO
[2018-09-29 13:27] VITALS: BP 140/95
[2018-09-29] MEDS ORDERED: PREDNISONE10 MG PO (16:53)
== END 2018-09-29 17:02 | disposition home or self-care (01) ==
LOC: ED 13:25
DX: G89.29 Other chronic pain (principal); M25.562 Pain in left knee; M25.561 Pain in right knee; M25.542 Pain in joints of left hand; M25.541 Pain in joints of right hand; M06.9 Rheumatoid arthritis, unspecified; F17.200 Nicotine dependence, unspecified, uncomplicated; Z91.041 Radiographic dye allergy status; Z88.8 Allergy status to other drugs, medicaments and biological substances; Z88.6 Allergy status to analgesic agent; Z79.899 Other long term (current) drug therapy

== ENCOUNTER → 2018-10-04 | Outpatient (CLI) | payer OTHER ==
[~2018-10-04] MED LIST changes: +CLINDAMYCIN HC300 MG PO
[2018-10-04 20:38] LABS: HEMATOCRIT 38.3 % (37.0-47.0); HEMOGLOBIN 12.9 g/dl (12.0-16.0); MEAN CELL VOLUME 97.2 fl (81.0-99.0); MEAN CORPUSCULAR HGB 32.7 pg (27.0-31.0); MEAN CORPUSCULAR HGB CONC 33.7 g/dl (33.0-37.0); MEAN PLATELET VOLUME 9.6 fl (9.6-12.3); PLATELET COUNT AUTOMATED 529 10*3/uL (130-400); RED BLOOD COUNT 3.94 10*6/uL (4.10-5.10); RED CELL DISTRI WIDTH 14.3 % (0-14.5); WHITE BLOOD COUNT 17.6 10*3/uL (4.8-10.8)
[2018-10-04 20:53] LABS: ALBUMIN 3.2 gm/dl (3.1-4.5); ALKALINE PHOSPHATASE 149 U/L (45-117); BUN 18 mg/dl (7-24); CHLORIDE 109 mmol/L (98-107); CREATININE 0.68 mg/dL (0.55-1.02); POTASSIUM 3.6 mmol/L (3.5-5.1); SGOT/AST 35 IU/L (3-35); SGPT/ALT 67 U/L (12-78); SODIUM 140 mmol/L (136-145); TOTAL PROTEIN 7.1 gm/dL (6.4-8.2)
[2018-10-04 20:54] LABS: FREE T4 0.85 ng/dl (0.76-1.46)
[2018-10-04 21:01] LABS: THYROID STIM HORMONE (HS) 0.226 uIU/ml (0.358-4.75)
[2018-10-04 21:12] LABS: TOTAL CELLS COUNTED 100 #CELLS
[2018-10-04 21:13] LABS: PLATELET SUFFICIENCY HIGH (NORMAL)
== END | disposition home or self-care (01) ==
LOC: LAB 20:19
PROVIDERS: Internal Medicine
DX: R00.0 Tachycardia, unspecified (principal)

== ENCOUNTER 2018-10-13 15:36 | Emergency (ER) | payer OTHER ==
[~2018-10-13] VITALS: Ht 162.5 cm; Wt 65.8 kg
[~2018-10-13 15:36] MED LIST changes: -CLINDAMYCIN HC300 MG PO
[2018-10-13 15:37] VITALS: BP 122/84
== END 2018-10-13 16:37 | disposition home or self-care (01) ==
LOC: ED 15:36
DX: M25.511 Pain in right shoulder (principal); M25.521 Pain in right elbow; M25.561 Pain in right knee; M25.522 Pain in left elbow; M25.562 Pain in left knee; M79.644 Pain in right finger(s); M79.645 Pain in left finger(s); M06.9 Rheumatoid arthritis, unspecified; F17.200 Nicotine dependence, unspecified, uncomplicated; Z91.041 Radiographic dye allergy status; Z88.8 Allergy status to other drugs, medicaments and biological substances; Z79.899 Other long term (current) drug therapy

== ENCOUNTER 2018-10-20 09:05 | Emergency (ER) | payer OTHER ==
[~2018-10-20] VITALS: Ht 162.5 cm; Wt 68.0 kg
[2018-10-20 09:07] VITALS: BP 148/100
[2018-10-20] MEDS ORDERED: CLINDAMYCIN HC300 MG PO (09:57)
== END 2018-10-20 10:21 | disposition home or self-care (01) ==
LOC: ED 09:05
DX: G89.29 Other chronic pain (principal); K02.9 Dental caries, unspecified; F17.200 Nicotine dependence, unspecified, uncomplicated; Z91.041 Radiographic dye allergy status; Z88.8 Allergy status to other drugs, medicaments and biological substances; Z88.6 Allergy status to analgesic agent; Z79.899 Other long term (current) drug therapy

== ENCOUNTER 2018-11-09 17:05 | Emergency (ER) | payer OTHER ==
--- NOTE | ~2018-11-09 | EKG ---
[place], [place] ELECTROCARDIOGRAM REPORT NAME: TAM SHETTY UNIT #: [id number] ROOM: DOCTOR: WILTON DRAFT REPORT BIRTHDATE: [birth year] [facility] Test Date: 2018-11-09 Test Time: 18:32:07 Pat Name: TAM SHETTY Department: Room: Gender: [employer]: : 1975 Requested By: TYRONE QUIROZ Order Number: [id number] Reading MD: Measurements Intervals [place] Rate: 98 P: 22 MN: 126 QRS: 73 QRSD: 106 T: 16 QT: 370 QTc: 473 Interpretive Statements Sinus rhythm No previous ECG available for comparison CM:EKGRPT:ELECTROCARDIOGRAM REPORT [id number] TYRONE FLORIAN DRAFT REPORT TYRONE QUIROZ DO
[~2018-11-09 17:05] MED LIST changes: +CLINDAMYCIN HC300 MG PO
[2018-11-09 17:08] VITALS: BP 121/76
[2018-11-09 18:46] LABS: BASO # 0.1 10*3/uL (0.0-0.1); BASO % 0.5 % (0.0-1.0); EOS % 0.1 % (1.0-4.0); HEMATOCRIT 39.7 % (37.0-47.0); HEMOGLOBIN 13.3 g/dl (12.0-16.0); LYMPH # 2.6 10*3/uL (1.3-4.4); LYMPH % 21.3 % (27.0-41.0); MEAN CELL VOLUME 96.1 fl (81.0-99.0); MEAN CORPUSCULAR HGB 32.2 pg (27.0-31.0); MEAN CORPUSCULAR HGB CONC 33.5 g/dl (33.0-37.0); MEAN PLATELET VOLUME 9.8 fl (9.6-12.3); MONO # 0.9 10*3/uL (0.1-1.0); MONO % 7.1 % (3.0-9.0); NEUT # 8.5 10*3/uL (2.3-7.9); NEUT % 69.7 % (47.0-73.0); PLATELET COUNT AUTOMATED 353 10*3/uL (130-400); RED BLOOD COUNT 4.13 10*6/uL (4.10-5.10); RED CELL DISTRI WIDTH 14.1 % (0-14.5); WHITE BLOOD COUNT 12.1 10*3/uL (4.8-10.8)
[2018-11-09 19:02] LABS: ALBUMIN 3.2 gm/dl (3.1-4.5); ALKALINE PHOSPHATASE 117 U/L (45-117); BUN 7 mg/dl (7-24); CHLORIDE 104 mmol/L (98-107); CREATININE 0.54 mg/dL (0.55-1.02); LIPASE 65 U/L (73-393); SGOT/AST 90 IU/L (3-35); SGPT/ALT 119 U/L (12-78); SODIUM 135 mmol/L (136-145)
[2018-11-09] MEDS ORDERED: PREDNISONE20 M1 PO (20:07)
[2019-02-10] MEDS ORDERED: CLINDAMYCIN HC300 MG PO (22:02)
[2019-02-10] MEDS ORDERED: MEDROL DOSEPAK4 MG PO (22:30)
[2019-02-10] MEDS ORDERED: MYCOLOG CREAM 115 GM T (22:30)
== END 2018-11-09 20:17 | disposition home or self-care (01) ==
LOC: ED 17:05
PROVIDERS: Emergency Medicine
DX: M06.9 Rheumatoid arthritis, unspecified (principal); M32.9 Systemic lupus erythematosus, unspecified; G89.29 Other chronic pain; K21.9 Gastro-esophageal reflux disease without esophagitis; G62.9 Polyneuropathy, unspecified; F17.200 Nicotine dependence, unspecified, uncomplicated; Z91.041 Radiographic dye allergy status; Z88.8 Allergy status to other drugs, medicaments and biological substances; Z79.2 Long term (current) use of antibiotics; Z79.899 Other long term (current) drug therapy

== ENCOUNTER → 2018-11-25 | Outpatient (CLI) | payer OTHER ==
[~2018-11-25] MED LIST changes: +MYCOLOG CREAM 115 GM T; +PROVENTIL HFA6.7 GM INH; +ZITHROMAX250 MG PO
[2018-11-25 10:52] LABS: BASO # 0.1 10*3/uL (0.0-0.1); BASO % 0.6 % (0.0-1.0); HEMATOCRIT 45.4 % (37.0-47.0); HEMOGLOBIN 14.7 g/dl (12.0-16.0); LYMPH # 3.5 10*3/uL (1.3-4.4); LYMPH % 21.8 % (27.0-41.0); MEAN CELL VOLUME 97.8 fl (81.0-99.0); MEAN CORPUSCULAR HGB 31.7 pg (27.0-31.0); MEAN CORPUSCULAR HGB CONC 32.4 g/dl (33.0-37.0); MONO # 0.7 10*3/uL (0.1-1.0); MONO % 4.5 % (3.0-9.0); NEUT # 11.6 10*3/uL (2.3-7.9); NEUT % 71.7 % (47.0-73.0); PLATELET COUNT AUTOMATED 382 10*3/uL (130-400); RED BLOOD COUNT 4.64 10*6/uL (4.10-5.10); RED CELL DISTRI WIDTH 14.3 % (0-14.5); WHITE BLOOD COUNT 16.1 10*3/uL (4.8-10.8)
[2018-11-25 11:20] LABS: ALBUMIN 3.4 gm/dl (3.1-4.5); BUN 13 mg/dl (7-24); CHLORIDE 106 mmol/L (98-107); POTASSIUM 3.8 mmol/L (3.5-5.1); SODIUM 137 mmol/L (136-145)
[2018-11-25 11:24] LABS: ALKALINE PHOSPHATASE 118 U/L (45-117); CREATININE 0.67 mg/dL (0.55-1.02); SGOT/AST 56 IU/L (3-35); SGPT/ALT 70 U/L (12-78)
== END | disposition home or self-care (01) ==
LOC: US 10-05 10:30 → LAB 10:24 → US 11:00
PROVIDERS: Internal Medicine Rheumatology
DX: R16.0 Hepatomegaly, not elsewhere classified (principal); R74.8 Abnormal levels of other serum enzymes

== ENCOUNTER 2018-12-05 19:26 | Emergency (ER) | payer OTHER ==
[~2018-12-05] VITALS: Ht 162.5 cm; Wt 66.7 kg
[~2018-12-05 19:26] MED LIST changes: -MYCOLOG CREAM 115 GM T; -PROVENTIL HFA6.7 GM INH; -ZITHROMAX250 MG PO
[2018-12-05 19:28] VITALS: BP 125/81
[2018-12-05] MEDS ORDERED: PREDNISONE20 M1 PO (19:37)
[2018-12-05] MEDS ORDERED: KETOROLAC10 MG PO (19:37)
[2019-02-10] MEDS ORDERED: CLINDAMYCIN HC300 MG PO (22:02)
[2019-02-10] MEDS ORDERED: MEDROL DOSEPAK4 MG PO (22:30)
[2019-02-10] MEDS ORDERED: MYCOLOG CREAM 115 GM T (22:30)
== END 2018-12-05 19:49 | disposition home or self-care (01) ==
LOC: ED 19:26
DX: M06.9 Rheumatoid arthritis, unspecified (principal); K21.9 Gastro-esophageal reflux disease without esophagitis; M81.0 Age-related osteoporosis without current pathological fracture; F17.200 Nicotine dependence, unspecified, uncomplicated; Z79.899 Other long term (current) drug therapy; Z91.041 Radiographic dye allergy status; Z88.8 Allergy status to other drugs, medicaments and biological substances

== ENCOUNTER 2018-12-17 18:21 | Emergency (ER) | payer OTHER ==
[~2018-12-17] VITALS: Wt 65.8 kg
[2018-12-17 18:22] VITALS: BP 126/85
[2018-12-17] MEDS ORDERED: PREDNISONE20 M1 PO (19:33)
[2018-12-17] MEDS ORDERED: ZITHROMAX250 MG PO (20:09)
[2018-12-17] MEDS ORDERED: PROVENTIL HFA6.7 GM INH (20:09)
[2019-02-10] MEDS ORDERED: CLINDAMYCIN HC300 MG PO (22:02)
[2019-02-10] MEDS ORDERED: MEDROL DOSEPAK4 MG PO (22:30)
[2019-02-10] MEDS ORDERED: MYCOLOG CREAM 115 GM T (22:30)
== END 2018-12-17 20:25 | disposition home or self-care (01) ==
LOC: ED 18:21
DX: J40 Bronchitis, not specified as acute or chronic (principal); F17.200 Nicotine dependence, unspecified, uncomplicated; Z91.041 Radiographic dye allergy status; Z88.8 Allergy status to other drugs, medicaments and biological substances; Z79.899 Other long term (current) drug therapy

== ENCOUNTER 2019-01-07 13:40 | Emergency (ER) | payer OTHER ==
[~2019-01-07] VITALS: Ht 162.5 cm; Wt 65.8 kg
[2019-01-07 13:40] VITALS: BP 137/94
[~2019-01-07 13:40] MED LIST changes: +PROVENTIL HFA6.7 GM INH; +ZITHROMAX250 MG PO
[2019-01-07] MEDS ORDERED: PREDNISONE20 M1 PO (15:08)
[2019-02-10] MEDS ORDERED: CLINDAMYCIN HC300 MG PO (22:02)
[2019-02-10] MEDS ORDERED: MEDROL DOSEPAK4 MG PO (22:30)
[2019-02-10] MEDS ORDERED: MYCOLOG CREAM 115 GM T (22:30)
== END 2019-01-07 15:36 | disposition home or self-care (01) ==
LOC: ED 13:40
DX: M06.9 Rheumatoid arthritis, unspecified (principal); M25.511 Pain in right shoulder; M25.531 Pain in right wrist; M25.532 Pain in left wrist; M79.645 Pain in left finger(s); M79.644 Pain in right finger(s); F17.200 Nicotine dependence, unspecified, uncomplicated; Z79.899 Other long term (current) drug therapy; Z88.8 Allergy status to other drugs, medicaments and biological substances; Z88.6 Allergy status to analgesic agent; Z91.041 Radiographic dye allergy status

== ENCOUNTER 2019-01-27 17:19 | Emergency (ER) | payer OTHER ==
[~2019-01-27] VITALS: Ht 162.5 cm; Wt 63.5 kg
[2019-01-27 17:19] VITALS: BP 110/76
[2019-01-27 19:08] LABS: BILIRUBIN 1+ (NEGATIVE); BLOOD 1+ (NEGATIVE); CLARITY SL CLOUDY (CLEAR); COLOR YELLOW (YELLOW); GLUCOSE NEGATIVE (NEGATIVE); KETONE NEGATIVE (NEGATIVE); LEUKO ESTERASE 2+ (NEGATIVE); NITRITE POSITIVE (NEGATIVE); SPECIFIC GRAVITY >= 1.030 (1.005-1.030); UROBILINOGEN >= 8.0 E.U./dl (0.2-1.0)
[2019-01-27 19:19] LABS: BACTERIA 2+; WBC TNTC wbc/hpf (0-5)
[2019-01-27] MEDS ORDERED: PREDNISONE20 M1 PO (19:50)
[2019-01-27] MEDS ORDERED: SEPTDS PO (19:50)
[2019-02-10] MEDS ORDERED: CLINDAMYCIN HC300 MG PO (22:02)
[2019-02-10] MEDS ORDERED: MYCOLOG CREAM 115 GM T (22:30)
[2019-02-10] MEDS ORDERED: MEDROL DOSEPAK4 MG PO (22:30)
== END 2019-01-27 19:59 | disposition home or self-care (01) ==
LOC: ED 17:19
PROVIDERS: Physician Assistant
DX: N39.0 Urinary tract infection, site not specified (principal); L03.113 Cellulitis of right upper limb; M06.9 Rheumatoid arthritis, unspecified; F17.200 Nicotine dependence, unspecified, uncomplicated; Z79.899 Other long term (current) drug therapy; Z91.041 Radiographic dye allergy status; Z88.8 Allergy status to other drugs, medicaments and biological substances

== ENCOUNTER 2019-03-02 19:33 | Emergency (ER) | payer OTHER ==
[~2019-03-02] VITALS: Ht 162.5 cm; Wt 59.0 kg
[~2019-03-02 19:33] MED LIST changes: +MYCOLOG CREAM 115 GM T
[2019-03-02 19:34] VITALS: BP 115/77
[2019-03-02] MEDS ORDERED: PREDNISONE20 M1 PO (19:55)
== END 2019-03-02 20:46 | disposition home or self-care (01) ==
LOC: ED 19:33
DX: M25.542 Pain in joints of left hand (principal); M25.541 Pain in joints of right hand; M06.9 Rheumatoid arthritis, unspecified; F17.200 Nicotine dependence, unspecified, uncomplicated; Z91.041 Radiographic dye allergy status; Z88.8 Allergy status to other drugs, medicaments and biological substances; Z88.6 Allergy status to analgesic agent; Z79.899 Other long term (current) drug therapy

== ENCOUNTER 2019-04-26 19:24 | Emergency (ER) | payer OTHER | END 2019-04-26 23:25 | disposition left against medical advice (07) | LOC: ED 19:24 | DX: T50.901A Poisoning by unspecified drugs, medicaments and biological substances, accidental (unintentional), initial encounter (principal); R40.20 Unspecified coma; Z53.21 Procedure and treatment not carried out due to patient leaving prior to being seen by health care provider ==

== ENCOUNTER 2019-04-27 15:29 | Emergency (ER) | payer OTHER ==
[~2019-04-27] VITALS: Ht 167.6 cm; Wt 56.7 kg
[2019-04-27 15:47] VITALS: BP 00/00
== END 2019-04-27 15:40 | disposition left against medical advice (07) ==
LOC: ED 15:29
DX: T40.4X1A Poisoning by other synthetic narcotics, accidental (unintentional), initial encounter (principal); R23.0 Cyanosis; Z53.21 Procedure and treatment not carried out due to patient leaving prior to being seen by health care provider; Y92.89 Other specified places as the place of occurrence of the external cause

== ENCOUNTER 2019-06-09 11:56 | Emergency (ER) | payer OTHER ==
[~2019-06-09] VITALS: Ht 162.5 cm; Wt 56.7 kg
[2019-06-09 11:56] VITALS: BP 127/81
[2019-06-09 12:40] LABS: BASO # 0.1 10*3/uL (0.0-0.1); BASO % 0.5 % (0.0-1.0); EOS % 0.1 % (1.0-4.0); HEMATOCRIT 41.3 % (37.0-47.0); HEMOGLOBIN 13.4 g/dl (12.0-16.0); LYMPH # 2.8 10*3/uL (1.3-4.4); LYMPH % 20.2 % (27.0-41.0); MEAN CELL VOLUME 95.6 fl (81.0-99.0); MEAN CORPUSCULAR HGB CONC 32.4 g/dl (33.0-37.0); MEAN PLATELET VOLUME 10.1 fl (9.6-12.3); MONO # 1.1 10*3/uL (0.1-1.0); MONO % 8.1 % (3.0-9.0); NEUT # 9.6 10*3/uL (2.3-7.9); NEUT % 69.9 % (47.0-73.0); PLATELET COUNT AUTOMATED 250 10*3/uL (130-400); RED BLOOD COUNT 4.32 10*6/uL (4.10-5.10); RED CELL DISTRI WIDTH 13.4 % (0-14.5); WHITE BLOOD COUNT 13.7 10*3/uL (4.8-10.8)
[2019-06-09 12:55] LABS: ALBUMIN 3.4 gm/dl (3.1-4.5); ALKALINE PHOSPHATASE 115 U/L (45-117); BUN 9 mg/dl (7-24); CHLORIDE 106 mmol/L (98-107); CREATININE 0.53 mg/dL (0.55-1.02); SGOT/AST 98 IU/L (3-35); SGPT/ALT 113 U/L (12-78); SODIUM 137 mmol/L (136-145); TOTAL PROTEIN 7.3 gm/dL (6.4-8.2)
[2019-06-09] MEDS ORDERED: DOXYCYCLINE100 M3 PO (14:28)
[2019-06-09] MEDS ORDERED: KETOROLAC10 MG PO (14:28)
[2019-06-09] MEDS ORDERED: PREDNISONE50 MG PO (14:28)
== END 2019-06-09 14:35 | disposition home or self-care (01) ==
LOC: ED 11:56
PROVIDERS: Nurse Practitioner Family
DX: J06.9 Acute upper respiratory infection, unspecified (principal); M06.9 Rheumatoid arthritis, unspecified; F17.200 Nicotine dependence, unspecified, uncomplicated; Z88.8 Allergy status to other drugs, medicaments and biological substances; Z91.041 Radiographic dye allergy status; Z79.899 Other long term (current) drug therapy

== ENCOUNTER 2019-06-13 19:14 | Emergency (ER) | payer OTHER ==
[~2019-06-13] VITALS: Ht 162.5 cm; Wt 56.7 kg
[2019-06-13 19:16] VITALS: BP 130/77
--- NOTE | 2019-06-13 20:13 | NUR ---
PT CAME TO DESK ASKING HOW LONG UNTIL A DOCTOR SEES PATIENT, INFORMED SEVERAL CRITICAL PATIENTS, PT SAYS "OK, ILL TRY TO WAIT A FEW MORE MINUTES"
--- NOTE | 2019-06-13 20:33 | NUR ---
Transfer Out, from the Emergency Department - Stable This patient, TAM SHETTY, 43, [birth year], [id number], [id number], was examined by the Emergency Department physician, [facility] and efforts were made to stabilize the patient. The patient's condition is stable. The reason for transfer is need higher level of care . The Emergency physician has made the decision to transfer the patient out. Refer to the ED physician's dictation for the family/back-up physician notified. The attending physician has spoken to the accepting physician at the receiving facility, [facility] . Refer to the ED physician's dictation. The receiving facility has space and qualified personnel to care for the patient, and has agreed to accept the patient. Proper equipment and trained personnel have been arranged. The mode of transport is air. The agency is [email or web address]. The Emergency physician has spoken to the transport staff re: patient's condition and needs during transport. Copies of the medical record have been forwarded to the receiving facility, including: - Emergency Department record: - name, address, hospital number, age, next of kin - presenting problem - history of injury, past medical history - treatment, medications & route, fluid type & volume - lab and xray findings, films - physical findings - vitals signs -- prehospital, emergency, pre-transfer - preliminary diagnosis - status/condition - emergency medical services record - consent for transfer - authorization for record release - name of any involed physicians -- responsive or not - name and address of referring physician - name of contact physician at receiving facility - name of accepting physician at receiving facility Nursing report has been given to JOSLYN FROM [email or web address], SHE STATES REPORT TO HER CONSTITUTES NO NEED TO CALL THE PICU WITH REPORT. . Valuables include CLOTHING . and were given to MOTHER. KELSY BROWN
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
[2019-06-13 20:48] LABS: BASO % 0.2 % (0.0-1.0); HEMATOCRIT 36.2 % (37.0-47.0); HEMOGLOBIN 11.7 g/dl (12.0-16.0); LYMPH # 2.8 10*3/uL (1.3-4.4); LYMPH % 21.1 % (27.0-41.0); MEAN CELL VOLUME 94.5 fl (81.0-99.0); MEAN CORPUSCULAR HGB 30.5 pg (27.0-31.0); MEAN CORPUSCULAR HGB CONC 32.3 g/dl (33.0-37.0); MEAN PLATELET VOLUME 10.1 fl (9.6-12.3); MONO # 0.7 10*3/uL (0.1-1.0); MONO % 5.5 % (3.0-9.0); NEUT # 9.5 10*3/uL (2.3-7.9); NEUT % 72.6 % (47.0-73.0); PLATELET COUNT AUTOMATED 298 10*3/uL (130-400); RED BLOOD COUNT 3.83 10*6/uL (4.10-5.10); RED CELL DISTRI WIDTH 13.4 % (0-14.5)
[2019-06-13 20:57] LABS: INTERNATIONAL NORM RATIO 0.9 (2.0-3.5)
[2019-06-13 21:06] LABS: ALBUMIN 2.9 gm/dl (3.1-4.5); ALKALINE PHOSPHATASE 122 U/L (45-117); BUN 15 mg/dl (7-24); CHLORIDE 105 mmol/L (98-107); CREATININE 0.51 mg/dL (0.55-1.02); LIPASE 63 U/L (73-393); POTASSIUM 3.7 mmol/L (3.5-5.1); SGOT/AST 53 IU/L (3-35); SGPT/ALT 81 U/L (12-78); SODIUM 138 mmol/L (136-145); TOTAL PROTEIN 6.7 gm/dL (6.4-8.2)
--- NOTE | 2019-06-13 23:08 | NUR ---
The patient, TAM SHETTY, 43, [birth year], [id number], [id number], presented to the Emergency Department at 1917. The patient's Chief Complaint was INFECTION. The patient subsequently left "Against Medical Advice" at 2308. Treatment completed included LAB, RAD, IV, IV MEDS . Possible complications and consequences of not following medical advice were clearly explained to the patient by Dr. ELOINA FIGUEROA , and XI ESTEVEZ. Assessment of the patient's competence, for making the decision to refuse completion of previously requested exam and treatment, includes alert and oriented. Attempts made to get none involved in persuading the patient to accept, Dr. HENRY CADE-ELOINA DANG, the physician's recommendations. Discussion included IMPORTANCE OF RECEIVING MEDICAL TREATMENT FOR INFECTION. The patient's response was VOICED UNDERSTANDING . Family/friends who witnessed the discussion includes NONE. Signatures OBTAINED requested. The patient DID sign the chart; this was witnessed by XI ESTEVEZ. The patient's reason for departing, prior to completion of treatment was "refuses to be admitted". The patient's disposition is dc against medical advice, to the care of none. Arrangements have been made for the ED staff to "Call Back" the patient the following day, to inquire about the patient's medical status and encourage TAM SHETTY, to seek medical attention, if this has not been completed. XI RAGLAND
== END 2019-06-13 22:53 | disposition left against medical advice (07) ==
LOC: ED 19:14 → EDHOLD 22:38 → ED 22:53
PROVIDERS: Nurse Practitioner Family
DX: L03.114 Cellulitis of left upper limb (principal); M19.90 Unspecified osteoarthritis, unspecified site; K21.9 Gastro-esophageal reflux disease without esophagitis; M81.0 Age-related osteoporosis without current pathological fracture; M06.9 Rheumatoid arthritis, unspecified; G62.9 Polyneuropathy, unspecified; F17.200 Nicotine dependence, unspecified, uncomplicated; Z91.041 Radiographic dye allergy status; Z88.8 Allergy status to other drugs, medicaments and biological substances; Z79.899 Other long term (current) drug therapy

== ENCOUNTER 2019-06-28 16:48 | Emergency (ER) | payer OTHER ==
[~2019-06-28] VITALS: Ht 162.5 cm; Wt 55.8 kg
[2019-06-28 16:51] VITALS: BP 140/79
[2019-06-28] MEDS ORDERED: FLUCONAZOLE150 MG PO (16:58)
[2019-06-28] MEDS ORDERED: 'CIPRO500 M1 PO (16:58)
[2019-06-28] MEDS ORDERED: BACLOFEN5 MG PO (16:59)
[2019-06-28] MEDS ORDERED: IBU800 MG PO (17:00)
[2019-06-28] MEDS ORDERED: FEROSUL325 MG PO (17:01)
[2019-06-28] MEDS ORDERED: PHARMASSURE FO0.8 MG PO (17:01)
[2019-06-28] MEDS ORDERED: ALENDRONATE SOD70 M1 PO (17:02)
[2019-06-28] MEDS ORDERED: GABAPENTIN600 MG PO (17:02)
[2019-06-28] MEDS ORDERED: PREDNISONE5 MG PO (17:02)
[2019-06-28] MEDS ORDERED: CYCLOBENZAPRINE10 MG PO (17:03)
[2019-06-28] MEDS ORDERED: MONTELUKAST SOD10 MG PO (17:03)
[2019-06-28] MEDS ORDERED: ESCITALOPRAM OX10 MG PO (17:03)
[2019-06-28] MEDS ORDERED: OYSTER SHELL 51 EACH PO (17:03)
[2019-06-28] MEDS ORDERED: VITAMIN D32000 UNI1 PO (17:04)
[2019-06-28] MEDS ORDERED: LISINOPRIL5 MG PO (17:04)
[2019-06-28] MEDS ORDERED: HYDROXYCHLOROQ200 M1 PO (17:04)
[2019-06-28 18:22] LABS: BILIRUBIN NEGATIVE (NEGATIVE); BLOOD NEGATIVE (NEGATIVE); CLARITY CLEAR (CLEAR); COLOR YELLOW (YELLOW); GLUCOSE NEGATIVE (NEGATIVE); KETONE NEGATIVE (NEGATIVE); LEUKO ESTERASE NEGATIVE (NEGATIVE); NITRITE NEGATIVE (NEGATIVE); SPECIFIC GRAVITY <= 1.005 (1.005-1.030); UROBILINOGEN 0.2 E.U./dl (0.2-1.0)
[2019-06-28 18:23] LABS: BASO # 0.1 10*3/uL (0.0-0.1); BASO % 0.7 % (0.0-1.0); EOS % 0.1 % (1.0-4.0); HEMATOCRIT 42.7 % (37.0-47.0); LYMPH # 2.7 10*3/uL (1.3-4.4); LYMPH % 25.6 % (27.0-41.0); MEAN CELL VOLUME 93.8 fl (81.0-99.0); MEAN CORPUSCULAR HGB 30.8 pg (27.0-31.0); MEAN CORPUSCULAR HGB CONC 32.8 g/dl (33.0-37.0); MEAN PLATELET VOLUME 11.2 fl (9.6-12.3); MONO # 1.1 10*3/uL (0.1-1.0); MONO % 9.9 % (3.0-9.0); NEUT # 6.8 10*3/uL (2.3-7.9); NEUT % 63.1 % (47.0-73.0); PLATELET COUNT AUTOMATED 331 10*3/uL (130-400); RED BLOOD COUNT 4.55 10*6/uL (4.10-5.10); RED CELL DISTRI WIDTH 13.9 % (0-14.5); WHITE BLOOD COUNT 10.7 10*3/uL (4.8-10.8)
[2019-06-28 18:32] LABS: EPITHELIAL CELLS 0-2
[2019-06-28 18:33] LABS: ALBUMIN 3.6 gm/dl (3.1-4.5); ALKALINE PHOSPHATASE 111 U/L (45-117); BUN 7 mg/dl (7-24); CHLORIDE 103 mmol/L (98-107); CREATININE 0.97 mg/dL (0.55-1.02); POTASSIUM 4.1 mmol/L (3.5-5.1); SGOT/AST 40 IU/L (3-35); SGPT/ALT 53 U/L (12-78); SODIUM 133 mmol/L (136-145); TOTAL PROTEIN 8.1 gm/dL (6.4-8.2)
[2019-06-28 18:38] LABS: INTERNATIONAL NORM RATIO 0.9 (2.0-3.5)
== END 2019-06-28 20:16 | disposition home or self-care (01) ==
LOC: ED 16:48
PROVIDERS: Physician Assistant
DX: M06.9 Rheumatoid arthritis, unspecified (principal); F17.200 Nicotine dependence, unspecified, uncomplicated; Z98.51 Tubal ligation status; Z98.890 Other specified postprocedural states; Z79.899 Other long term (current) drug therapy; Z91.041 Radiographic dye allergy status; Z88.6 Allergy status to analgesic agent; Z88.8 Allergy status to other drugs, medicaments and biological substances

== ENCOUNTER 2019-08-01 17:34 | Emergency (ER) | payer OTHER ==
[~2019-08-01] VITALS: Ht 162.5 cm; Wt 56.2 kg
[~2019-08-01 17:34] MED LIST changes: +'CIPRO500 M1 PO; +BACLOFEN5 MG PO; +CYCLOBENZAPRINE10 MG PO; +ESCITALOPRAM OX10 MG PO; +FEROSUL325 MG PO; +FLUCONAZOLE150 MG PO; +GABAPENTIN600 MG PO; +HYDROXYCHLOROQ200 M1 PO; +LISINOPRIL5 MG PO; +MONTELUKAST SOD10 MG PO; +OYSTER SHELL 51 EACH PO; +PHARMASSURE FO0.8 MG PO; +VITAMIN D32000 UNI1 PO
[2019-08-01 17:37] VITALS: BP 137/83
[2019-08-01 20:01] LABS: BASO % 0.4 % (0.0-1.0); HEMATOCRIT 37.3 % (37.0-47.0); HEMOGLOBIN 12.3 g/dl (12.0-16.0); LYMPH # 2.3 10*3/uL (1.3-4.4); LYMPH % 23.3 % (27.0-41.0); MEAN CELL VOLUME 92.8 fl (81.0-99.0); MEAN CORPUSCULAR HGB 30.6 pg (27.0-31.0); MEAN PLATELET VOLUME 11.1 fl (9.6-12.3); MONO # 1.4 10*3/uL (0.1-1.0); MONO % 13.6 % (3.0-9.0); NEUT # 6.2 10*3/uL (2.3-7.9); NEUT % 62.3 % (47.0-73.0); PLATELET COUNT AUTOMATED 314 10*3/uL (130-400); RED BLOOD COUNT 4.02 10*6/uL (4.10-5.10); RED CELL DISTRI WIDTH 13.1 % (0-14.5); WHITE BLOOD COUNT 9.9 10*3/uL (4.8-10.8)
[2019-08-01 20:15] LABS: ALBUMIN 3.5 gm/dl (3.1-4.5); ALKALINE PHOSPHATASE 83 U/L (45-117); BUN 9 mg/dl (7-24); CHLORIDE 104 mmol/L (98-107); CREATININE 0.55 mg/dL (0.55-1.02); POTASSIUM 3.1 mmol/L (3.5-5.1); SGOT/AST 31 IU/L (3-35); SGPT/ALT 28 U/L (12-78); SODIUM 137 mmol/L (136-145); TOTAL PROTEIN 7.7 gm/dL (6.4-8.2)
[2019-08-01] MEDS ORDERED: MEDROL DOSEPAK4 MG PO (23:12)
[2019-08-01] MEDS ORDERED: VIBRAMYCIN100 MG PO (23:12)
== END 2019-08-01 23:30 | disposition home or self-care (01) ==
LOC: ED 17:34
PROVIDERS: Internal Medicine
DX: J40 Bronchitis, not specified as acute or chronic (principal); L03.114 Cellulitis of left upper limb; R19.7 Diarrhea, unspecified; R11.10 Vomiting, unspecified; K21.9 Gastro-esophageal reflux disease without esophagitis; M81.0 Age-related osteoporosis without current pathological fracture; M06.9 Rheumatoid arthritis, unspecified; M19.90 Unspecified osteoarthritis, unspecified site; G43.909 Migraine, unspecified, not intractable, without status migrainosus; F17.200 Nicotine dependence, unspecified, uncomplicated; Z79.899 Other long term (current) drug therapy; Z91.041 Radiographic dye allergy status; Z88.8 Allergy status to other drugs, medicaments and biological substances

== ENCOUNTER 2019-09-12 16:05 | Emergency (ER) | payer OTHER ==
[~2019-09-12] VITALS: Ht 165.1 cm; Wt 61.2 kg
[2019-09-12 18:24] LABS: BASO # 0.1 10*3/uL (0.0-0.1); BASO % 0.5 % (0.0-1.0); EOS % 0.1 % (1.0-4.0); HEMATOCRIT 42.1 % (37.0-47.0); HEMOGLOBIN 13.8 g/dl (12.0-16.0); LYMPH # 2.4 10*3/uL (1.3-4.4); LYMPH % 17.2 % (27.0-41.0); MEAN CELL VOLUME 95.7 fl (81.0-99.0); MEAN CORPUSCULAR HGB 31.4 pg (27.0-31.0); MEAN CORPUSCULAR HGB CONC 32.8 g/dl (33.0-37.0); MEAN PLATELET VOLUME 10.7 fl (9.6-12.3); MONO % 7.1 % (3.0-9.0); NEUT # 10.4 10*3/uL (2.3-7.9); NEUT % 74.6 % (47.0-73.0); PLATELET COUNT AUTOMATED 430 10*3/uL (130-400); RED CELL DISTRI WIDTH 13.2 % (0-14.5)
[2019-09-12 18:31] LABS: ALBUMIN 3.3 gm/dl (3.1-4.5); ALKALINE PHOSPHATASE 140 U/L (45-117); BUN 11 mg/dl (7-24); CHLORIDE 104 mmol/L (98-107); CREATININE 0.56 mg/dL (0.55-1.02); LIPASE 57 U/L (73-393); POTASSIUM 3.9 mmol/L (3.5-5.1); SGOT/AST 58 IU/L (3-35); SGPT/ALT 157 U/L (12-78); SODIUM 135 mmol/L (136-145); TOTAL PROTEIN 8.5 gm/dL (6.4-8.2)
[2019-09-13 09:56] VITALS: BP 157/91
== END 2019-09-13 10:00 | disposition short-term general hospital (02) ==
LOC: ED 16:05
PROVIDERS: Physician Assistant
DX: M00.9 Pyogenic arthritis, unspecified (principal); M06.032 Rheumatoid arthritis without rheumatoid factor, left wrist; M25.511 Pain in right shoulder; M25.512 Pain in left shoulder; G43.909 Migraine, unspecified, not intractable, without status migrainosus; M81.0 Age-related osteoporosis without current pathological fracture; I10 Essential (primary) hypertension; K21.9 Gastro-esophageal reflux disease without esophagitis; Z91.041 Radiographic dye allergy status; Z88.8 Allergy status to other drugs, medicaments and biological substances; Z79.899 Other long term (current) drug therapy; Z79.2 Long term (current) use of antibiotics; Z87.891 Personal history of nicotine dependence

== ENCOUNTER 2019-10-11 18:18 | Emergency (ER) | payer OTHER ==
[~2019-10-11] VITALS: Ht 162.5 cm; Wt 63.5 kg
[2019-10-11 18:26] VITALS: BP 133/75
[2019-10-11] MEDS ORDERED: AMOXICILLIN500 M2 PO (19:43)
[2019-10-11] MEDS ORDERED: MEDROL DOSEPAK4 MG PO (19:43)
[2019-10-11] MEDS ORDERED: FLONASE ALLERG9.9 ML NAS (19:43)
== END 2019-10-11 20:06 | disposition home or self-care (01) ==
LOC: ED 18:18
DX: J06.9 Acute upper respiratory infection, unspecified (principal); G89.29 Other chronic pain; G43.909 Migraine, unspecified, not intractable, without status migrainosus; M19.90 Unspecified osteoarthritis, unspecified site; M81.0 Age-related osteoporosis without current pathological fracture; F17.200 Nicotine dependence, unspecified, uncomplicated; Z91.041 Radiographic dye allergy status; Z88.6 Allergy status to analgesic agent; Z88.8 Allergy status to other drugs, medicaments and biological substances; Z79.899 Other long term (current) drug therapy

== ENCOUNTER 2020-01-28 02:13 | Inpatient (IN) | payer OTHER ==
[2020-01-28] VITALS (7 sets, daily range): BP systolic 102–136; BP diastolic 64–83
[~2020-01-28] VITALS: Ht 162.5 cm; Wt 59.5 kg
[~2020-01-28 02:13] MED LIST changes: +AMOXICILLIN500 M2 PO
[2020-01-28 02:58] LABS: BILIRUBIN NEGATIVE (NEGATIVE); BLOOD 2+ (NEGATIVE); CLARITY CLEAR (CLEAR); COLOR BROWN (YELLOW); GLUCOSE NEGATIVE (NEGATIVE); KETONE NEGATIVE (NEGATIVE); LEUKO ESTERASE TRACE (NEGATIVE); NITRITE NEGATIVE (NEGATIVE); UROBILINOGEN 0.2 E.U./dl (0.2-1.0)
[2020-01-28 03:00] LABS: URINE AMPHETAMINES > 1000 (1000ng/ml); URINE BARBITURATES < 200 (200ng/ml); URINE BENZODIAZEPINES < 200 (200ng/ml); URINE CANNABINOIDS (THC) < 50 (50ng/ml); URINE COCAINE > 300 (300ng/ml); URINE METHADONE < 300 (300ng/ml)
[2020-01-28 03:01] LABS: BACTERIA 2+; EPITHELIAL CELLS 21-30; MUCOUS 2+
[2020-01-28 03:19] LABS: BASO # 0.1 10*3/uL (0.0-0.1); BASO % 0.5 % (0.0-1.0); HEMATOCRIT 41.8 % (37.0-47.0); LYMPH % 18.2 % (27.0-41.0); MEAN CELL VOLUME 92.9 fl (81.0-99.0); MEAN CORPUSCULAR HGB 30.2 pg (27.0-31.0); MEAN CORPUSCULAR HGB CONC 32.5 g/dl (33.0-37.0); MONO % 9.3 % (3.0-9.0); NEUT # 7.9 10*3/uL (2.3-7.9); NEUT % 71.3 % (47.0-73.0); PLATELET COUNT AUTOMATED 450 10*3/uL (130-400); RED CELL DISTRI WIDTH 12.9 % (0-14.5); WHITE BLOOD COUNT 11.1 10*3/uL (4.8-10.8)
[2020-01-28 03:30] LABS: BUN 22 mg/dl (7-24); CHLORIDE 103 mmol/L (98-107); CREATININE 0.74 mg/dL (0.55-1.02); POTASSIUM 2.9 mmol/L (3.5-5.1); SODIUM 134 mmol/L (136-145)
[2020-01-28 03:40] LABS: URINE OPIATES > 300 (300ng/ml); URINE PHENCYCLIDINE < 25 (25ng/ml)
--- NOTE | 2020-01-28 04:09 | NUR ---
THIS RN ATTEMPTED FOR IV ACCESS X2 WITH NO SUCCESS. 2ND RN TO BEDSIDE FOR IV ACCESS.
--- NOTE | 2020-01-28 05:30 | NUR ---
PT UP TO BATHROOM WITH STEADY GAIT. NAD NOTED.
--- NOTE | 2020-01-28 06:36 | NUR ---
PT RESTING QUIETLY ON BED. RESP EVEN AND UNLABORED. AWAITING BED ASSIGNMENT. CALL LIGHT WITHIN REACH, BED LOW AND LOCKED. WILL CONTINUE TO MONITOR.
--- NOTE | 2020-01-28 07:05 | NUR ---
REPORT FROM SHANIKA ESTEVEZ AT THIS TIME
--- NOTE | 2020-01-28 07:58 | NUR ---
Time: 757 A 44 year old FEMALE admitted to under services of DR. MYKEL DUFFY,[facility]. Pt. arrived via ambulatory from ER. Chief complaint: POSSIBLE UTI WITH SXS. ZACKARY HUITRON A
[2020-01-28] MEDS ORDERED: FLONASE ALLERG9.9 ML NAS (08:18)
[2020-01-28] MEDS ORDERED: CIPROFLOXACIN500 M4 PO (08:19)
[2020-01-28] MEDS ORDERED: METRONIDAZOLE500 M1 PO (08:20)
[2020-01-28] MEDS ORDERED: LORATADINE-D 21 EACH PO (08:21)
[2020-01-28] MEDS ORDERED: ESCITALOPRAM OX20 MG PO (08:21)
[2020-01-28] MEDS ORDERED: NAPROXEN500 MG PO (08:22)
[2020-01-28] MEDS ORDERED: TRAZODONE100 MG PO (08:22)
[2020-01-28] MEDS ORDERED: BACLOFEN5 MG PO (08:23)
[2020-01-28] MEDS ORDERED: OMEPRAZOLE40 MG PO (08:25)
[2020-01-28] MEDS ORDERED: METHOTREXATE S2.5 M1 PO (09:43)
[2020-01-28] MEDS ORDERED: PHARMASSURE FO0.4 MG PO (09:43)
--- NOTE | 2020-01-28 17:30 | NUR ---
/HORTENCIA NOTIFIED OF PATIETS REQUEST FOR PAIN MEDICATION, REFUSING THE NAPROXYN. NEW ORDER FOR IV TORADOL BID PRN
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
[2020-01-29] VITALS: BP 101/61
[2020-01-29 06:14] LABS: BASO # 0.1 10*3/uL (0.0-0.1); BASO % 0.7 % (0.0-1.0); HEMATOCRIT 37.8 % (37.0-47.0); LYMPH # 1.8 10*3/uL (1.3-4.4); LYMPH % 24.1 % (27.0-41.0); MEAN CELL VOLUME 95.9 fl (81.0-99.0); MEAN CORPUSCULAR HGB 29.9 pg (27.0-31.0); MEAN CORPUSCULAR HGB CONC 31.2 g/dl (33.0-37.0); MEAN PLATELET VOLUME 11.3 fl (9.6-12.3); MONO # 0.8 10*3/uL (0.1-1.0); MONO % 10.3 % (3.0-9.0); NEUT # 4.8 10*3/uL (2.3-7.9); NEUT % 64.2 % (47.0-73.0); PLATELET COUNT AUTOMATED 425 10*3/uL (130-400); RED BLOOD COUNT 3.94 10*6/uL (4.10-5.10); RED CELL DISTRI WIDTH 13.1 % (0-14.5); WHITE BLOOD COUNT 7.5 10*3/uL (4.8-10.8)
[2020-01-29 06:51] LABS: ALBUMIN 2.7 gm/dl (3.1-4.5); ALKALINE PHOSPHATASE 77 U/L (45-117); CREATININE 0.36 mg/dL (0.55-1.02); SGOT/AST 8 IU/L (3-35); SGPT/ALT 14 U/L (12-78); TOTAL PROTEIN 6.7 gm/dL (6.4-8.2)
[2020-01-29 07:08] LABS: CHLORIDE 112 mmol/L (98-107); SODIUM 143 mmol/L (136-145)
[2020-01-29 07:09] LABS: BUN 7 mg/dl (7-24)
[2020-01-29 08:00] VITALS: BP 96/79
[2020-01-29 16:00] VITALS: BP 100/54
[2020-01-30] VITALS: BP 99/60
[2020-01-30 08:00] VITALS: BP 111/67
--- NOTE | 2020-01-30 12:38 | NUR ---
Circuit Judge in to talk to patient. Patient states lives at HOME with ALONE. There are NO steps in the home. Physician: MYKEL Pharmacy: [facility] Home health services: NONE Patient's level of ADLs: INDEPENDENT Patient has working utilities: YES DME: NONE Follow-up physician's appointment after d/c: PREFERS TO MAKE OWN ON DISCHARGE Does patient want to access PORTAL?: NO Discharge plan PT LIVES AT HOME ALONE AND IS INDEPENDENT IN HER CARE. PLAN IS RETURN HOME WHEN MEDICALLY STABLE. PT STATES SHE WILL HAVE A RIDE HOME. WILL CONTINUE TO FOLLOW.. JENNIFER JIM
[2020-01-30] MEDS ORDERED: GABAPENTIN800 MG PO (14:19)
[2020-01-30] MEDS ORDERED: CEFUROXIME250 MG PO (14:19)
[2020-01-30] MEDS ORDERED: AMINOPHYLLIN200 MG PO (14:21)
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
== END 2020-01-30 15:30 | disposition home or self-care (01) | DRG 383 ==
LOC: ED 02:13 → 4E 06:02 → EDHOLD 06:02 → 4E 07:18
PROVIDERS: Emergency Medicine Emergency Medical Services; ADMIT Internal Medicine
DX: L03.115 Cellulitis of right lower limb (principal); N39.0 Urinary tract infection, site not specified; M54.9 Dorsalgia, unspecified; E27.49 Other adrenocortical insufficiency; F14.10 Cocaine abuse, uncomplicated; M06.9 Rheumatoid arthritis, unspecified; M81.0 Age-related osteoporosis without current pathological fracture; K21.9 Gastro-esophageal reflux disease without esophagitis; R79.82 Elevated C-reactive protein (CRP); I73.00 Raynaud's syndrome without gangrene; E55.9 Vitamin D deficiency, unspecified; R76.8 Other specified abnormal immunological findings in serum; F41.9 Anxiety disorder, unspecified; E87.2 Acidosis; F32.9 Major depressive disorder, single episode, unspecified; G89.29 Other chronic pain; M75.01 Adhesive capsulitis of right shoulder; E11.69 Type 2 diabetes mellitus with other specified complication; E11.40 Type 2 diabetes mellitus with diabetic neuropathy, unspecified; M19.90 Unspecified osteoarthritis, unspecified site; M32.9 Systemic lupus erythematosus, unspecified; Z91.041 Radiographic dye allergy status; Z88.8 Allergy status to other drugs, medicaments and biological substances; Z86.14 Personal history of Methicillin resistant Staphylococcus aureus infection; Z87.440 Personal history of urinary (tract) infections; Z98.51 Tubal ligation status; Z87.891 Personal history of nicotine dependence; Z82.5 Family history of asthma and other chronic lower respiratory diseases; Z82.49 Family history of ischemic heart disease and other diseases of the circulatory system; Z83.3 Family history of diabetes mellitus; Z79.899 Other long term (current) drug therapy

== ENCOUNTER 2020-02-06 18:22 | Emergency (ER) | payer OTHER ==
[~2020-02-06] VITALS: Ht 162.5 cm; Wt 61.2 kg
[~2020-02-06 18:22] MED LIST changes: +AMINOPHYLLIN200 MG PO; +CEFUROXIME250 MG PO; +CIPROFLOXACIN500 M4 PO; +ESCITALOPRAM OX20 MG PO; +GABAPENTIN800 MG PO; +LORATADINE-D 21 EACH PO; +METHOTREXATE S2.5 M1 PO; +METRONIDAZOLE500 M1 PO; +NAPROXEN500 MG PO; +PHARMASSURE FO0.4 MG PO
== END 2020-02-06 18:59 | disposition left against medical advice (07) ==
LOC: ED 18:22
DX: T65.91XA Toxic effect of unspecified substance, accidental (unintentional), initial encounter (principal); M19.90 Unspecified osteoarthritis, unspecified site; R56.9 Unspecified convulsions; M81.0 Age-related osteoporosis without current pathological fracture; F17.200 Nicotine dependence, unspecified, uncomplicated; Z88.8 Allergy status to other drugs, medicaments and biological substances; Z79.899 Other long term (current) drug therapy; Y92.89 Other specified places as the place of occurrence of the external cause

== ENCOUNTER 2020-02-10 14:21 | Inpatient (IN) | payer OTHER ==
[~2020-02-10] VITALS: Ht 160 cm; Wt 56.5 kg
[2020-02-10 14:31] VITALS: BP 157/91
[2020-02-10 15:25] LABS: BASO # 0.1 10*3/uL (0.0-0.1); BASO % 0.7 % (0.0-1.0); EOS # 0.3 10*3/uL (0.0-0.4); EOS % 2.9 % (1.0-4.0); HEMATOCRIT 38.4 % (37.0-47.0); LYMPH # 2.6 10*3/uL (1.3-4.4); LYMPH % 22.2 % (27.0-41.0); MEAN CELL VOLUME 90.6 fl (81.0-99.0); MEAN CORPUSCULAR HGB 30.4 pg (27.0-31.0); MEAN CORPUSCULAR HGB CONC 33.6 g/dl (33.0-37.0); MEAN PLATELET VOLUME 10.2 fl (9.6-12.3); MONO % 8.5 % (3.0-9.0); NEUT # 7.8 10*3/uL (2.3-7.9); NEUT % 65.4 % (47.0-73.0); PLATELET COUNT AUTOMATED 433 10*3/uL (130-400); RED BLOOD COUNT 4.24 10*6/uL (4.10-5.10); RED CELL DISTRI WIDTH 13.3 % (0-14.5); WHITE BLOOD COUNT 11.9 10*3/uL (4.8-10.8)
[2020-02-10 15:40] LABS: ALBUMIN 3.3 gm/dl (3.1-4.5); ALKALINE PHOSPHATASE 74 U/L (45-117); BUN 8 mg/dl (7-24); CHLORIDE 102 mmol/L (98-107); CREATININE 0.64 mg/dL (0.55-1.02); SGOT/AST 23 IU/L (3-35); SGPT/ALT 19 U/L (12-78); SODIUM 134 mmol/L (136-145); TOTAL PROTEIN 8.1 gm/dL (6.4-8.2)
[2020-02-10 15:41] LABS: TROPONIN I 0.028 ng/ml (<0.045)
[2020-02-10 15:55] LABS: BILIRUBIN NEGATIVE (NEGATIVE); BLOOD 3+ (NEGATIVE); CLARITY CLEAR (CLEAR); COLOR YELLOW (YELLOW); GLUCOSE NEGATIVE (NEGATIVE); KETONE NEGATIVE (NEGATIVE); LEUKO ESTERASE 2+ (NEGATIVE); NITRITE NEGATIVE (NEGATIVE); UROBILINOGEN 0.2 E.U./dl (0.2-1.0)
[2020-02-10 15:56] LABS: BACTERIA 2+; EPITHELIAL CELLS TNTC
[2020-02-10 15:58] LABS: URINE AMPHETAMINES > 1000 (1000ng/ml); URINE BARBITURATES < 200 (200ng/ml); URINE BENZODIAZEPINES < 200 (200ng/ml); URINE CANNABINOIDS (THC) < 50 (50ng/ml); URINE COCAINE < 300 (300ng/ml); URINE METHADONE < 300 (300ng/ml); URINE OPIATES < 300 (300ng/ml); URINE PHENCYCLIDINE < 25 (25ng/ml)
[2020-02-10 18:00] VITALS: BP 142/93
--- NOTE | 2020-02-10 18:29 | NUR ---
[facility] under the services of MICHELINE Pérez MD with a diagnosis of UTI, CHEST PAIN. Chief complaint is ITCHING. Patient arrived via bed from ER. Monitor applied. Initial assessment completed. Vital signs taken and recorded. MICHELINE PÉREZ MD notified of admission to the unit. Orders received. See assessment for past medical history, medications and allergies. Patient and/or family oriented to unit. [facility] visitation policy reviewed. Clothing/patient valuable form completed. YOGI MENDOZA
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
--- NOTE | 2020-02-10 19:19 | NUR ---
SHAE BURTON NOTIFIED OF CONSULT.
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
[2020-02-10 20:00] VITALS: BP 150/88; BP 152/91
--- NOTE | 2020-02-10 20:45 | NUR ---
MEDS EFFECTIVE. SLEEPING. RESPIRATIONS EASY. VSS. IV FLUIDS MAINTAINED. CALL LIGHT WITHIN REACH
[2020-02-11] VITALS: BP 103/55
--- NOTE | 2020-02-11 | NUR ---
CONTINUES TO SLEEP WITH NO DISTRESS NOTED. RESPIRATIONS EASY. VSS. IV FLUIDS MAINTAINED. CALL LIGHT WITHIN REACH
--- NOTE | 2020-02-11 04:31 | NUR ---
24 HR chart check completed.
--- NOTE | 2020-02-11 05:39 | NUR ---
AWAKE, PLEASANT THIS AM. PROVIDED WITH NAPROXEN PER PRN ORDER FOR COMPLAINTS OF GENERALIZED PAIN. CALL LIGHT WITHIN REACH. WILL MONITOR
[2020-02-11 06:20] LABS: ALBUMIN 3.1 gm/dl (3.1-4.5); BUN 6 mg/dl (7-24); CHLORIDE 110 mmol/L (98-107); CREATININE 0.37 mg/dL (0.55-1.02); POTASSIUM 3.4 mmol/L (3.5-5.1); SGOT/AST 20 IU/L (3-35); SGPT/ALT 16 U/L (12-78); SODIUM 142 mmol/L (136-145); TOTAL PROTEIN 7.2 gm/dL (6.4-8.2)
[2020-02-11 06:22] LABS: ALKALINE PHOSPHATASE 75 U/L (45-117)
--- NOTE | 2020-02-11 06:30 | NUR ---
RESTING WITH EYES CLOSED AND NO DISTRESS NOTED. RESPIRATIONS EASY. IV FLUIDS MAINTAINED. CALL LIGHT WITHIN REACH
[2020-02-11 06:36] LABS: BASO # 0.1 10*3/uL (0.0-0.1); BASO % 0.9 % (0.0-1.0); EOS % 0.1 % (1.0-4.0); HEMATOCRIT 37.8 % (37.0-47.0); LYMPH % 25.1 % (27.0-41.0); MEAN CELL VOLUME 92.9 fl (81.0-99.0); MEAN CORPUSCULAR HGB 30.5 pg (27.0-31.0); MEAN CORPUSCULAR HGB CONC 32.8 g/dl (33.0-37.0); MEAN PLATELET VOLUME 11.5 fl (9.6-12.3); MONO % 12.5 % (3.0-9.0); NEUT # 4.9 10*3/uL (2.3-7.9); NEUT % 60.8 % (47.0-73.0); PLATELET COUNT AUTOMATED 383 10*3/uL (130-400); RED BLOOD COUNT 4.07 10*6/uL (4.10-5.10); RED CELL DISTRI WIDTH 13.7 % (0-14.5); WHITE BLOOD COUNT 8.1 10*3/uL (4.8-10.8)
--- NOTE | 2020-02-11 08:45 | NUR ---
PT SLEEPING, AWAKENED FOR 0800 ASSESSMENT. VOICED NO C/O AT THIS TIME. IV FLUIDS MAINTAINED. BED IN LOW LOCKED POSITION, CQALL LIGHT WITHIN REACH. WILL CONTINUE TO MONITOR.
--- NOTE | 2020-02-11 09:00 | NUR ---
Chief Pharmacist in to talk to patient. Patient states lives at home alone with her family checking in on her. There are 0 steps in the home. Physician: Dr. Carl Ferraro Pharmacy: [facility] Home health services: none Patient's level of ADLs: INDEPENDENT Patient has working utilities: yes DME: none Follow-up physician's appointment after d/c: she prefers to make her own follow up appt after discharge Does patient want to access PORTAL?: no Discharge plan discussed with patient. She lives at home alone with her family checking in on her. She is independent in her ADLs and ambulation. Discussed home health care services and she denies any home needs. When medically stable she will be discharged to home. She states she will have transportation on discharge. ISHAAN KLEIN
--- NOTE | 2020-02-11 11:04 | NUR ---
INFECTIOUS DISEASE CONSULT NOTIFIED PER ANSWERING SERVICE.
[2020-02-11 16:00] VITALS: BP 122/72
--- NOTE | 2020-02-11 19:50 | NUR ---
PATIENT ASSESSMENT COMPLETED AT THIS TIME WITHOUT INCIDENT, PATIENT DENIES ANY CHEST PAIN/PRESSURE OR SHORTNESS OF BREATH AT THIS TIME, REQUESTING NAPROXSYN "IF IT IS TIME FOR IT". CALL LIGHT WITHIN REACH, WILL CONTINUE TO MONITOR.
[2020-02-11 20:00] VITALS: BP 116/74
--- NOTE | 2020-02-11 21:29 | NUR ---
PRN NAPROXSEN GIVEN AT THIS TIME FOR 6/10 PAIN IN PATIENT LEFT HAND AND WRIST. A&O X3, CALL LIGHT WITHIN REACH, WILL CONTINUE TO MONITOR.
--- NOTE | 2020-02-11 22:20 | NUR ---
PATIENT STATED THAT HER PAIN IN LEFT HAND/WRIST WAS NOW A 4/10 AFTER PRN NAPROXEN WAS GIVEN. A&O X3, CALL LIGHT WITHIN REACH, WILL CONTINUE TO MONITOR.
--- NOTE | 2020-02-12 02:40 | NUR ---
PATIENT LYING IN BED IN A POSITION OF COMFORT AT THIS TIME. NO SIGNS OR SYMPTOMS OF DISTRESS NOTED. IV FLUIDS AND ANTIBIOTIC INFUSING WITHOUT INCIDENT. RESPIRATIONS EASY AND UNLABORED. CALL LIGHT WITHIN REACH, WILL CONTINUE TO MONITOR.
--- NOTE | 2020-02-12 07:26 | NUR ---
NAPROXEN GIVEN PER REQUEST FOR C/O FGENERALIZED DISCOMFORT. WILL MONITOR
[2020-02-12 08:00] VITALS: BP 101/59
--- NOTE | 2020-02-12 08:30 | NUR ---
PT SLEEPING, AROUSES EASILY. 0800 ASSESSMENT COMPLETE. PT DENIES C/O AT THIS TIME. BED IN LOW LOCKED POSITION, CALL LIGHT WITHIN REACH. WILL CONITNUE TO MONITOR.
[2020-02-12 12:00] VITALS: BP 124/65
--- NOTE | 2020-02-12 12:58 | NUR ---
TORADOL GIVEN FOR C/O LT HAND PAIN. RATES 10/10 ON PAIN SCALE. WILL MONITOR.
--- NOTE | 2020-02-12 13:53 | NUR ---
PT LEFT AMA.
--- NOTE | 2020-02-12 13:53 | NUR ---
NOTIFIED DR. HOGUE THAT PT LEFT AMA.
== END 2020-02-12 13:53 | disposition left against medical advice (07) | DRG 383 ==
LOC: ED 14:21 → EDHOLD 16:49 → 5E 17:14
PROVIDERS: Internal Medicine; ADMIT Internal Medicine
DX: L03.114 Cellulitis of left upper limb (principal); N39.0 Urinary tract infection, site not specified; R07.89 Other chest pain; R31.9 Hematuria, unspecified; K21.9 Gastro-esophageal reflux disease without esophagitis; F32.9 Major depressive disorder, single episode, unspecified; E11.40 Type 2 diabetes mellitus with diabetic neuropathy, unspecified; R20.8 Other disturbances of skin sensation; F15.10 Other stimulant abuse, uncomplicated; M54.9 Dorsalgia, unspecified; M06.9 Rheumatoid arthritis, unspecified; M81.0 Age-related osteoporosis without current pathological fracture; L03.115 Cellulitis of right lower limb; F19.10 Other psychoactive substance abuse, uncomplicated; E11.10 Type 2 diabetes mellitus with ketoacidosis without coma; F41.9 Anxiety disorder, unspecified; E55.9 Vitamin D deficiency, unspecified; G89.29 Other chronic pain; Z88.8 Allergy status to other drugs, medicaments and biological substances; Z91.041 Radiographic dye allergy status; Z82.49 Family history of ischemic heart disease and other diseases of the circulatory system; Z83.3 Family history of diabetes mellitus; Z98.51 Tubal ligation status; Z79.4 Long term (current) use of insulin; Z87.11 Personal history of peptic ulcer disease

== ENCOUNTER 2020-04-10 21:26 | Emergency (ER) | payer OTHER ==
[~2020-04-10] VITALS: Wt 59.0 kg
[2020-04-10 21:33] VITALS: BP 131/80
[2020-04-10 22:31] LABS: URINE AMPHETAMINES > 1000 (1000ng/ml); URINE BARBITURATES < 200 (200ng/ml); URINE BENZODIAZEPINES < 200 (200ng/ml); URINE CANNABINOIDS (THC) < 50 (50ng/ml); URINE COCAINE < 300 (300ng/ml); URINE METHADONE < 300 (300ng/ml); URINE OPIATES < 300 (300ng/ml)
[2020-04-10 22:32] LABS: URINE PHENCYCLIDINE < 25 (25ng/ml)
[2020-04-10 22:42] LABS: COLOR YELLOW (YELLOW)
[2020-04-10 22:43] LABS: BILIRUBIN NEGATIVE (NEGATIVE); BLOOD NEGATIVE (NEGATIVE); CLARITY CLEAR (CLEAR); GLUCOSE NEGATIVE (NEGATIVE); KETONE NEGATIVE (NEGATIVE); LEUKO ESTERASE NEGATIVE (NEGATIVE); NITRITE NEGATIVE (NEGATIVE); UROBILINOGEN 0.2 E.U./dl (0.2-1.0)
[2020-04-10 22:44] LABS: EPITHELIAL CELLS 16-20; RBC 0-2 rbc/hpf (0-2); WBC 0-2 wbc/hpf (0-5); YEAST TRACE
== END 2020-04-10 23:42 | disposition home or self-care (01) ==
LOC: ED 21:26
PROVIDERS: Emergency Medicine
DX: R11.10 Vomiting, unspecified (principal); R19.7 Diarrhea, unspecified; K21.9 Gastro-esophageal reflux disease without esophagitis; F41.9 Anxiety disorder, unspecified; M19.90 Unspecified osteoarthritis, unspecified site; R56.9 Unspecified convulsions; F17.200 Nicotine dependence, unspecified, uncomplicated; Z91.041 Radiographic dye allergy status; Z88.8 Allergy status to other drugs, medicaments and biological substances; Z79.899 Other long term (current) drug therapy

== ENCOUNTER → 2020-06-19 | Outpatient (CLI) | payer OTHER ==
[2020-06-19 16:27] LABS: BASO % 0.2 % (0.0-1.0); HEMATOCRIT 43.2 % (37.0-47.0); LYMPH % 8.1 % (27.0-41.0); MEAN CELL VOLUME 89.1 fl (81.0-99.0); MEAN CORPUSCULAR HGB 28.2 pg (27.0-31.0); MEAN CORPUSCULAR HGB CONC 31.7 g/dl (33.0-37.0); MEAN PLATELET VOLUME 11.1 fl (9.6-12.3); MONO # 0.2 10*3/uL (0.1-1.0); MONO % 1.6 % (3.0-9.0); NEUT # 10.8 10*3/uL (2.3-7.9); NEUT % 89.9 % (47.0-73.0); PLATELET COUNT AUTOMATED 448 10*3/uL (130-400); RED BLOOD COUNT 4.85 10*6/uL (4.10-5.10); RED CELL DISTRI WIDTH 13.6 % (0-14.5)
[2020-06-19 16:47] LABS: CLARITY CLEAR (CLEAR); COLOR DARK YELLOW (YELLOW)
[2020-06-19 16:48] LABS: BACTERIA TRACE; BILIRUBIN NEGATIVE; BLOOD NEGATIVE (NEGATIVE); GLUCOSE NEGATIVE; KETONE NEGATIVE; LEUKO ESTERASE NEGATIVE (NEGATIVE); MUCOUS 2+; NITRITE NEGATIVE (NEGATIVE); RBC 0-2 rbc/hpf (0-2); SPECIFIC GRAVITY >= 1.030 (1.001-1.030)
[2020-06-20 06:07] LABS: HEP B CORE AB, IGM Negative (Negative); HEPATITIS B SURFACE AG Negative (Negative)
[2020-06-20 10:03] LABS: HEPATITIS C VIRUS ANTIBODY >11.0 s/co (0.0-0.9)
== END | disposition home or self-care (01) ==
LOC: LAB 15:48
PROVIDERS: ATTEND Internal Medicine
DX: Z20.2 Contact with and (suspected) exposure to infections with a predominantly sexual mode of transmission (principal)

== ENCOUNTER 2020-07-28 12:06 | Emergency (ER) | payer OTHER ==
[~2020-07-28] VITALS: Ht 167.6 cm; Wt 54.4 kg
[~2020-07-28 12:06] MED LIST changes: +AVPAK AZITHROM250 M1 PO
[2020-07-28 12:54] LABS: BASO # 0.1 10*3/uL (0.0-0.1); BASO % 0.7 % (0.0-1.0); EOS # 0.2 10*3/uL (0.0-0.4); EOS % 2.1 % (1.0-4.0); HEMATOCRIT 44.5 % (37.0-47.0); LYMPH # 3.2 10*3/uL (1.3-4.4); LYMPH % 28.1 % (27.0-41.0); MEAN CELL VOLUME 90.1 fl (81.0-99.0); MEAN CORPUSCULAR HGB 28.5 pg (27.0-31.0); MEAN CORPUSCULAR HGB CONC 31.7 g/dl (33.0-37.0); MEAN PLATELET VOLUME 10.1 fl (9.6-12.3); MONO # 0.9 10*3/uL (0.1-1.0); MONO % 7.7 % (3.0-9.0); NEUT # 6.8 10*3/uL (2.3-7.9); PLATELET COUNT AUTOMATED 514 10*3/uL (130-400); RED BLOOD COUNT 4.94 10*6/uL (4.10-5.10); RED CELL DISTRI WIDTH 14.5 % (0-14.5); WHITE BLOOD COUNT 11.2 10*3/uL (4.8-10.8)
[2020-07-28 13:12] LABS: ALBUMIN 3.7 gm/dl (3.1-4.5); ALKALINE PHOSPHATASE 121 U/L (45-117); B-hCG (QUALITATIVE) NEGATIVE (NEGATIVE); BUN 13 mg/dl (7-24); CHLORIDE 104 mmol/L (98-107); CREATININE 0.57 mg/dL (0.55-1.02); POTASSIUM 3.4 mmol/L (3.5-5.1); SGOT/AST 26 IU/L (3-35); SGPT/ALT 17 U/L (12-78); SODIUM 137 mmol/L (136-145); TOTAL PROTEIN 8.2 gm/dL (6.4-8.2)
[2020-07-28 13:14] LABS: ACETAMINOPHEN (TYLENOL) < 5.0 ug/ml (10-30); ETHYL ALCOHOL < 3.0 mg/dl (<3)
== END 2020-07-28 16:00 | disposition home or self-care (01) ==
LOC: ED 12:06
PROVIDERS: Physician Assistant
DX: Z20.89 Contact with and (suspected) exposure to other communicable diseases (principal); Z91.041 Radiographic dye allergy status; Z88.8 Allergy status to other drugs, medicaments and biological substances; Z79.899 Other long term (current) drug therapy

== ENCOUNTER 2020-08-09 16:39 | Emergency (ER) | payer OTHER ==
[~2020-08-09] VITALS: Ht 162.5 cm; Wt 47.6 kg
[2020-08-09 16:47] VITALS: BP 114/68
[2020-08-09 18:55] LABS: BILIRUBIN Negative (Negative); BLOOD Trace-Lysed (Negative); CLARITY Cloudy (Clear); COLOR Yellow (Yellow); GLUCOSE Negative (Negative); KETONE Trace (Negative); LEUKO ESTERASE 3+ (Negative); NITRITE Positive (Negative); SPECIFIC GRAVITY >= 1.030 (1.001-1.030)
[2020-08-09 18:58] LABS: BACTERIA 3+; WBC TNTC wbc/hpf (0-5)
[2020-08-09] MEDS ORDERED: CEFUROXIME AXE500 MG PO (19:11)
== END 2020-08-09 19:26 | disposition home or self-care (01) ==
LOC: ED 16:39
PROVIDERS: Physician Assistant
DX: N39.0 Urinary tract infection, site not specified (principal); Z88.8 Allergy status to other drugs, medicaments and biological substances; Z91.041 Radiographic dye allergy status; Z79.899 Other long term (current) drug therapy

== ENCOUNTER 2020-08-21 16:05 | Emergency (ER) | payer OTHER ==
[~2020-08-21 16:05] MED LIST changes: +CEFUROXIME AXE500 MG PO
[2020-08-21 16:10] VITALS: BP 142/82
[2020-08-21 16:48] LABS: BILIRUBIN Negative (Negative); BLOOD Negative (Negative); CLARITY Clear (Clear); COLOR Dark Yellow (Yellow); GLUCOSE Negative (Negative); KETONE Negative (Negative); LEUKO ESTERASE Negative (Negative); NITRITE Negative (Negative); UROBILINOGEN 0.2 E.U./dl (0.0-1.0)
[2020-08-21 17:01] LABS: BACTERIA 2+; MUCOUS TRACE; RBC 0-2 rbc/hpf (0-2)
[2020-08-21] MEDS ORDERED: MACROBID100 M1 PO (17:10)
== END 2020-08-21 17:39 | disposition home or self-care (01) ==
LOC: ED 16:05 → EDHOLD 16:52 → ED 17:39
PROVIDERS: Nurse Practitioner
DX: N39.0 Urinary tract infection, site not specified (principal); Z88.8 Allergy status to other drugs, medicaments and biological substances; Z79.899 Other long term (current) drug therapy

== ENCOUNTER 2020-08-27 07:03 | Emergency (ER) | payer OTHER ==
[~2020-08-27] VITALS: Ht 160 cm; Wt 57.2 kg
[~2020-08-27 07:03] MED LIST changes: +MACROBID100 M1 PO
[2020-08-27 10:27] LABS: MEAN CELL VOLUME 89.4 fl (81.0-99.0); MEAN CORPUSCULAR HGB 28.5 pg (27.0-31.0); MEAN CORPUSCULAR HGB CONC 31.9 g/dl (33.0-37.0); MEAN PLATELET VOLUME 10.3 fl (9.6-12.3); PLATELET COUNT AUTOMATED 417 10*3/uL (130-400); RED BLOOD COUNT 4.81 10*6/uL (4.10-5.10); RED CELL DISTRI WIDTH 14.6 % (0-14.5)
[2020-08-27 10:37] LABS: ACT PARTIAL THROMBO TIME 24.5 SECONDS (20.0-32.1)
[2020-08-27 10:41] LABS: ALBUMIN 3.7 gm/dl (3.1-4.5); ALKALINE PHOSPHATASE 117 U/L (45-117); BUN 23 mg/dl (7-24); CHLORIDE 102 mmol/L (98-107); CREATININE 0.57 mg/dL (0.55-1.02); LIPASE 37 U/L (73-393); POTASSIUM 3.9 mmol/L (3.5-5.1); SGOT/AST 54 IU/L (3-35); SGPT/ALT 26 U/L (12-78); SODIUM 134 mmol/L (136-145); TOTAL PROTEIN 7.7 gm/dL (6.4-8.2); TROPONIN I 0.019 ng/ml (<0.045)
[2020-08-27 10:43] LABS: ACETAMINOPHEN (TYLENOL) < 5.0 ug/ml (10-30); ETHYL ALCOHOL < 3.0 mg/dl (<3)
[2020-08-27 10:44] LABS: TOTAL CELLS COUNTED 100 #CELLS
[2020-08-27 10:45] LABS: PLATELET SUFFICIENCY HIGH (NORMAL)
[2020-08-27 12:45] VITALS: BP 132/98
== END 2020-08-27 13:08 | disposition short-term general hospital (02) ==
LOC: ED 07:03
PROVIDERS: Emergency Medicine
DX: J93.9 Pneumothorax, unspecified (principal); F19.10 Other psychoactive substance abuse, uncomplicated; M06.9 Rheumatoid arthritis, unspecified; G43.909 Migraine, unspecified, not intractable, without status migrainosus; M81.0 Age-related osteoporosis without current pathological fracture; Z86.14 Personal history of Methicillin resistant Staphylococcus aureus infection; Z91.041 Radiographic dye allergy status; Z88.8 Allergy status to other drugs, medicaments and biological substances; Z79.2 Long term (current) use of antibiotics; Z79.899 Other long term (current) drug therapy; Z98.51 Tubal ligation status

== ENCOUNTER 2020-09-22 14:10 | Emergency (ER) | payer OTHER ==
[~2020-09-22] VITALS: Ht 162.5 cm; Wt 49.9 kg
[2020-09-22 14:21] VITALS: BP 136/82
== END 2020-09-22 16:46 | disposition home or self-care (01) ==
LOC: ED 14:10
DX: S21.112D Laceration without foreign body of left front wall of thorax without penetration into thoracic cavity, subsequent encounter (principal); K21.9 Gastro-esophageal reflux disease without esophagitis; Z48.02 Encounter for removal of sutures; Z88.8 Allergy status to other drugs, medicaments and biological substances; Z91.041 Radiographic dye allergy status; Z79.899 Other long term (current) drug therapy; W18.39XD Other fall on same level, subsequent encounter

== ENCOUNTER 2020-09-30 22:00 | Observation (INO) | payer OTHER ==
[~2020-09-30] VITALS: Ht 172.7 cm; Wt 68.0 kg
[2020-09-30 22:29] VITALS: BP 140/88
[2020-09-30 22:30] VITALS: BP 143/88
[2020-09-30 23:26] LABS: BILIRUBIN Negative (Negative); BLOOD Negative (Negative); CLARITY Clear (Clear); COLOR Yellow (Yellow); GLUCOSE Negative (Negative); KETONE Negative (Negative); LEUKO ESTERASE Trace (Negative); NITRITE Negative (Negative); PH 6.5 (4.5-8.0); SPECIFIC GRAVITY <= 1.005 (1.001-1.030); UROBILINOGEN 0.2 E.U./dl (0.0-1.0)
[2020-09-30 23:27] LABS: BASO # 0.1 10*3/uL (0.0-0.1); BASO % 0.7 % (0.0-1.0); EOS # 0.1 10*3/uL (0.0-0.4); EOS % 1.3 % (1.0-4.0); HEMATOCRIT 41.7 % (37.0-47.0); LYMPH # 2.3 10*3/uL (1.3-4.4); MEAN CELL VOLUME 94.1 fl (81.0-99.0); MEAN CORPUSCULAR HGB 28.9 pg (27.0-31.0); MEAN CORPUSCULAR HGB CONC 30.7 g/dl (33.0-37.0); MEAN PLATELET VOLUME 10.3 fl (9.6-12.3); MONO # 0.9 10*3/uL (0.1-1.0); MONO % 9.4 % (3.0-9.0); NEUT # 6.2 10*3/uL (2.3-7.9); NEUT % 64.3 % (47.0-73.0); PLATELET COUNT AUTOMATED 410 10*3/uL (130-400); RED BLOOD COUNT 4.43 10*6/uL (4.10-5.10); RED CELL DISTRI WIDTH 14.9 % (0-14.5); WHITE BLOOD COUNT 9.6 10*3/uL (4.8-10.8)
[2020-09-30 23:45] LABS: ALBUMIN 3.4 gm/dl (3.1-4.5); ALKALINE PHOSPHATASE 163 U/L (45-117); BUN 8 mg/dl (7-24); CHLORIDE 110 mmol/L (98-107); CREATININE 0.58 mg/dL (0.55-1.02); POTASSIUM 3.2 mmol/L (3.5-5.1); SGOT/AST 19 IU/L (3-35); SGPT/ALT 16 U/L (12-78); SODIUM 143 mmol/L (136-145); TOTAL PROTEIN 7.1 gm/dL (6.4-8.2)
[2020-09-30 23:46] LABS: TROPONIN I 0.034 ng/ml (<0.045)
--- NOTE | 2020-10-01 00:28 | NUR ---
PT IN CT AT THIS TIME.---CHARLEE SUN RN
[2020-10-01 01:17] VITALS: BP 118/59
--- NOTE | 2020-10-01 01:18 | NUR ---
PT RESTING WITHOUT C/O--CHARLEE SUN RN
--- NOTE | 2020-10-01 06:20 | NUR ---
SPOKE WITH DR BONDS AND HE IS AWARE OF PT ADMISSION.ORDERS FOR REPEAT CXR AT [address] JACKSON.---CHARLEE SUN RN
--- NOTE | 2020-10-01 06:44 | NUR ---
DR JACKSON MADE AWARE OF CONSULT. NO NEW ORDERS.---CHARLEE SUN RN
--- NOTE | 2020-10-01 07:38 | NUR ---
THE PATIENT IS RESTING ON THE BED WITH HER EYES CLOSED. RESP ARE EASY, NON-LABORED
--- NOTE | 2020-10-01 08:34 | NUR ---
DR HOGUE'S RESIDENT WAS CALLED. VERBAL ORDER FOR NORCO 5/325 Q8H, AND A REGULAR DIET
[2020-10-01 15:53] LABS: URINE AMPHETAMINES > 1000 (1000ng/ml); URINE BARBITURATES < 200 (200ng/ml); URINE BENZODIAZEPINES < 200 (200ng/ml); URINE CANNABINOIDS (THC) < 50 (50ng/ml); URINE COCAINE < 300 (300ng/ml); URINE METHADONE < 300 (300ng/ml); URINE OPIATES < 300 (300ng/ml)
[2020-10-01 15:54] LABS: URINE PHENCYCLIDINE < 25 (25ng/ml)
--- NOTE | 2020-10-01 18:25 | NUR ---
THE ADMISSION ORDER WAS VERIFIED WITH DR HOGUE. HE TALKED WITH DR DANIEL AT [facility] AND HE ACCEPTED HER. CALLED [facility] AND THE REFUSED THE PATIENT DUE TO NO AVAILABLE BEDS. DR HOGUE WAS CALLED BACK AND ASKED WHAT HIS NEW ORDERS WERE FOR THE PATIENT. HE SAID HAVE THE HOSPITALIST GET INVOLVED TO TRANSFER HER TO AN ACCEPTING FACILITY. I TALKED WITH DR QUIROZ AND HE SAID TO CALL DR HOGUE BACK HE WOULD NEED TO TALK WITH THE HOSPITALIST TO ASK IF THEY WILL ACCEPT HER. Tray IRENE RN IS GOING TO CALL DR HOGUE AND VERIFY WHAT DR WEBER ORDERS ARE FOR THIS PATIENT
--- NOTE | 2020-10-01 18:40 | NUR ---
SPOKE WITH [facility], WHO WILL ARRANGE TRANSFER AND CALL DR. HOGUE
--- NOTE | 2020-10-01 20:19 | NUR ---
PATIENT GIVEN ALL THE SHOWER SUPPLIES REQUESTED AND SHE IS SHOWERING.
[2020-10-01 20:41] VITALS: BP 128/73
--- NOTE | 2020-10-01 22:37 | NUR ---
WHILE SHOWERING THE PATIENTS' PIV BECAME DISCONTINUED. NO BLEEDING. PATIENT REFUSING A NEW IV AT THIS TIME SINCE "I AM NOT GETTING ANYTHING THROUGH IT ANYMORE"
--- NOTE | 2020-10-02 01:19 | NUR ---
PT RESTING IN BED WITH EYES CLOSED, CALL LIGHT WITHIN REACH, NO ACUTE DISTRESS NOTED UPON THIS RN EXITING THE ROOM
[2020-10-02 06:10] VITALS: BP 142/82
--- NOTE | 2020-10-02 07:28 | NUR ---
Notified patient requires an authorization to be transferred to [facility]. Spoke to Tish at [facility] Med Call regarding transfer. Patient will be going to [facility] under the services of Dr. Elizabeth Li. Spoke to Shikha at [facility] regarding authorization. Ref # [id number]. Notified Tish at [facility] Med Call and ER park warden.
--- NOTE | 2020-10-02 07:47 | NUR ---
pt complains of generalized pain with a scale of 10/10. norco on emar to be given
--- NOTE | 2020-10-02 09:52 | NUR ---
ATTEMPTED TO CALL REPORT TO [facility], NO ANSWER.
--- NOTE | 2020-10-02 10:02 | NUR ---
SECOND ATTEMPT TO CALL REPORT TO [facility], NO ANSWER.
--- NOTE | 2020-10-02 10:44 | NUR ---
REPORT CALLED TO YASMINE ESTEVEZ FROM [facility].
== END 2020-10-02 09:50 | disposition short-term general hospital (02) ==
LOC: ED 22:00 → EDHOLD 10-01 01:41
PROVIDERS: Physician Assistant; ADMIT Internal Medicine; ATTEND Internal Medicine
DX: J93.9 Pneumothorax, unspecified (principal); F19.10 Other psychoactive substance abuse, uncomplicated; I73.00 Raynaud's syndrome without gangrene; F41.9 Anxiety disorder, unspecified; M25.50 Pain in unspecified joint; E87.6 Hypokalemia; F15.10 Other stimulant abuse, uncomplicated; R74.8 Abnormal levels of other serum enzymes; Z87.39 Personal history of other diseases of the musculoskeletal system and connective tissue

== ENCOUNTER 2020-10-14 16:04 | Emergency (ER) | payer OTHER ==
[~2020-10-14] VITALS: Ht 165.1 cm; Wt 49.9 kg
[2020-10-14 16:58] LABS: BASO # 0.1 10*3/uL (0.0-0.1); BASO % 0.7 % (0.0-1.0); EOS % 0.4 % (1.0-4.0); HEMATOCRIT 45.3 % (37.0-47.0); LYMPH # 2.6 10*3/uL (1.3-4.4); LYMPH % 24.9 % (27.0-41.0); MEAN CELL VOLUME 91.1 fl (81.0-99.0); MEAN CORPUSCULAR HGB 29.4 pg (27.0-31.0); MEAN CORPUSCULAR HGB CONC 32.2 g/dl (33.0-37.0); MEAN PLATELET VOLUME 10.5 fl (9.6-12.3); MONO # 0.6 10*3/uL (0.1-1.0); MONO % 5.9 % (3.0-9.0); NEUT % 67.8 % (47.0-73.0); PLATELET COUNT AUTOMATED 693 10*3/uL (130-400); RED BLOOD COUNT 4.97 10*6/uL (4.10-5.10); RED CELL DISTRI WIDTH 13.6 % (0-14.5); WHITE BLOOD COUNT 10.4 10*3/uL (4.8-10.8)
[2020-10-14 17:06] LABS: ACT PARTIAL THROMBO TIME 28.3 SECONDS (20.0-32.1)
[2020-10-14 17:46] LABS: BUN 8 mg/dl (7-24); CHLORIDE 106 mmol/L (98-107); CREATININE 0.66 mg/dL (0.55-1.02); POTASSIUM 3.4 mmol/L (3.5-5.1); SODIUM 137 mmol/L (136-145)
[2020-10-15 07:30] VITALS: BP 116/70
== END 2020-10-15 08:10 | disposition short-term general hospital (02) ==
LOC: ED 16:04
PROVIDERS: Emergency Medicine
DX: J94.2 Hemothorax (principal); F41.9 Anxiety disorder, unspecified; M19.90 Unspecified osteoarthritis, unspecified site; K21.9 Gastro-esophageal reflux disease without esophagitis; M06.9 Rheumatoid arthritis, unspecified; F32.9 Major depressive disorder, single episode, unspecified; G62.9 Polyneuropathy, unspecified; M81.0 Age-related osteoporosis without current pathological fracture; F17.210 Nicotine dependence, cigarettes, uncomplicated; Z91.041 Radiographic dye allergy status; Z88.8 Allergy status to other drugs, medicaments and biological substances; Z79.2 Long term (current) use of antibiotics; Z79.899 Other long term (current) drug therapy; Z86.14 Personal history of Methicillin resistant Staphylococcus aureus infection; Z98.51 Tubal ligation status; Z98.890 Other specified postprocedural states

== ENCOUNTER 2020-12-02 23:27 | Inpatient (IN) | payer OTHER ==
[~2020-12-02] VITALS: Ht 162.5 cm; Wt 53.5 kg
[2020-12-02 23:34] VITALS: BP 124/76
[2020-12-03 00:52] LABS: HEMATOCRIT 41.6 % (37.0-47.0); MEAN CELL VOLUME 93.3 fl (81.0-99.0); MEAN CORPUSCULAR HGB 29.6 pg (27.0-31.0); MEAN CORPUSCULAR HGB CONC 31.7 g/dl (33.0-37.0); MEAN PLATELET VOLUME 9.7 fl (9.6-12.3); PLATELET COUNT AUTOMATED 524 10*3/uL (130-400); RED BLOOD COUNT 4.46 10*6/uL (4.10-5.10); WHITE BLOOD COUNT 16.1 10*3/uL (4.8-10.8)
[2020-12-03 01:09] LABS: ALBUMIN 4.1 gm/dl (3.1-4.5); ALKALINE PHOSPHATASE 140 U/L (45-117); CHLORIDE 104 mmol/L (98-107); CREATININE 0.71 mg/dL (0.55-1.02); POTASSIUM 3.5 mmol/L (3.5-5.1); SGOT/AST 10 IU/L (3-35); SGPT/ALT 16 U/L (12-78); SODIUM 137 mmol/L (136-145); TOTAL PROTEIN 8.4 gm/dL (6.4-8.2)
[2020-12-03 01:13] LABS: BUN 11 mg/dl (7-24)
[2020-12-03 01:16] LABS: PLATELET SUFFICIENCY HIGH (NORMAL); TOTAL CELLS COUNTED 100 #CELLS
[2020-12-03] MEDS ORDERED: HYDROXYCHLOROQ200 M1 PO (04:09)
[2020-12-03 08:00] VITALS: BP 99/68
== END 2020-12-03 10:25 | disposition left against medical advice (07) | DRG 383 ==
LOC: ED 23:27 → EDHOLD 12-03 03:09 → 4E 12-03 04:15
PROVIDERS: Emergency Medicine; ADMIT Internal Medicine; ATTEND Internal Medicine
DX: L03.113 Cellulitis of right upper limb (principal); Z88.8 Allergy status to other drugs, medicaments and biological substances; Z91.041 Radiographic dye allergy status; M06.9 Rheumatoid arthritis, unspecified; M32.9 Systemic lupus erythematosus, unspecified; F41.9 Anxiety disorder, unspecified; G89.29 Other chronic pain; M54.9 Dorsalgia, unspecified; F14.10 Cocaine abuse, uncomplicated; K21.9 Gastro-esophageal reflux disease without esophagitis; F32.9 Major depressive disorder, single episode, unspecified; L03.123 Acute lymphangitis of right upper limb; Z53.29 Procedure and treatment not carried out because of patient's decision for other reasons; M81.0 Age-related osteoporosis without current pathological fracture; Z98.51 Tubal ligation status; Z82.49 Family history of ischemic heart disease and other diseases of the circulatory system; Z83.3 Family history of diabetes mellitus; Z83.6 Family history of other diseases of the respiratory system

== ENCOUNTER 2020-12-09 17:31 | Emergency (ER) | payer OTHER ==
[~2020-12-09] VITALS: Ht 162.5 cm; Wt 54.4 kg
[2020-12-09 17:36] VITALS: BP 156/67
[2020-12-09] MEDS ORDERED: TYLENOL325 M1 PO (17:43)
[2020-12-09] MEDS ORDERED: AUGMENTIN 875875 MG PO (17:43)
[2020-12-09] MEDS ORDERED: NAPROSYN500 MG PO (17:43)
== END 2020-12-09 17:57 | disposition home or self-care (01) ==
LOC: ED 17:31
DX: S00.81XA Abrasion of other part of head, initial encounter (principal); K04.7 Periapical abscess without sinus; G43.909 Migraine, unspecified, not intractable, without status migrainosus; M19.90 Unspecified osteoarthritis, unspecified site; K21.9 Gastro-esophageal reflux disease without esophagitis; F32.9 Major depressive disorder, single episode, unspecified; M81.0 Age-related osteoporosis without current pathological fracture; F17.200 Nicotine dependence, unspecified, uncomplicated; Z91.041 Radiographic dye allergy status; Z88.8 Allergy status to other drugs, medicaments and biological substances; Z79.899 Other long term (current) drug therapy; Z86.14 Personal history of Methicillin resistant Staphylococcus aureus infection; Z98.51 Tubal ligation status; Z98.890 Other specified postprocedural states; W55.03XA Scratched by cat, initial encounter; Y93.89 Activity, other specified; Y92.89 Other specified places as the place of occurrence of the external cause; Y99.8 Other external cause status

== ENCOUNTER → 2020-12-24 | Outpatient (CLI) | payer OTHER ==
[~2020-12-24] MED LIST changes: +AUGMENTIN 875875 MG PO
== END | disposition home or self-care (01) ==
LOC: RAD 12-03 09:30
PROVIDERS: ATTEND Internal Medicine
DX: S42.201A Unspecified fracture of upper end of right humerus, initial encounter for closed fracture (principal); M19.011 Primary osteoarthritis, right shoulder; M81.0 Age-related osteoporosis without current pathological fracture; X58.XXXA Exposure to other specified factors, initial encounter; Y93.89 Activity, other specified; Y92.89 Other specified places as the place of occurrence of the external cause; Y99.8 Other external cause status

== ENCOUNTER 2021-01-19 14:17 | Emergency (ER) | payer OTHER ==
[~2021-01-19] VITALS: Ht 162.5 cm; Wt 55.3 kg
[2021-01-19 14:22] VITALS: BP 143/79
[2021-01-19 14:57] LABS: BILIRUBIN 1+ (Negative); BLOOD Negative (Negative); CLARITY Clear (Clear); COLOR Orange (Yellow); GLUCOSE Negative (Negative); KETONE Trace (Negative); LEUKO ESTERASE 1+ (Negative); NITRITE Positive (Negative); SPECIFIC GRAVITY >= 1.030 (1.001-1.030)
[2021-01-19 15:03] LABS: BACTERIA TRACE; MUCOUS TRACE; RBC 0-2 rbc/hpf (0-2)
[2021-01-19 15:18] LABS: ALBUMIN 3.6 gm/dl (3.1-4.5); ALKALINE PHOSPHATASE 94 U/L (45-117); BUN 11 mg/dl (7-24); CHLORIDE 104 mmol/L (98-107); CREATININE 0.55 mg/dL (0.55-1.02); POTASSIUM 3.7 mmol/L (3.5-5.1); SGOT/AST 20 IU/L (3-35); SGPT/ALT 11 U/L (12-78); SODIUM 135 mmol/L (136-145); TOTAL PROTEIN 7.7 gm/dL (6.4-8.2)
[2021-01-19 15:45] LABS: BASO # 0.1 10*3/uL (0.0-0.1); BASO % 0.7 % (0.0-1.0); HEMATOCRIT 41.1 % (37.0-47.0); LYMPH # 1.6 10*3/uL (1.3-4.4); LYMPH % 18.2 % (27.0-41.0); MEAN CELL VOLUME 91.5 fl (81.0-99.0); MEAN CORPUSCULAR HGB 29.8 pg (27.0-31.0); MEAN CORPUSCULAR HGB CONC 32.6 g/dl (33.0-37.0); MEAN PLATELET VOLUME 10.5 fl (9.6-12.3); MONO # 0.9 10*3/uL (0.1-1.0); MONO % 10.3 % (3.0-9.0); NEUT # 6.3 10*3/uL (2.3-7.9); NEUT % 70.5 % (47.0-73.0); PLATELET COUNT AUTOMATED 323 10*3/uL (130-400); RED BLOOD COUNT 4.49 10*6/uL (4.10-5.10); RED CELL DISTRI WIDTH 14.3 % (0-14.5); WHITE BLOOD COUNT 8.9 10*3/uL (4.8-10.8)
== END 2021-01-19 16:00 | disposition home or self-care (01) ==
LOC: ED 14:17
PROVIDERS: Emergency Medicine
DX: M06.9 Rheumatoid arthritis, unspecified (principal); F41.9 Anxiety disorder, unspecified; M19.90 Unspecified osteoarthritis, unspecified site; Z98.890 Other specified postprocedural states; Z79.899 Other long term (current) drug therapy; Z98.51 Tubal ligation status

== ENCOUNTER → 2021-02-01 | Outpatient (CLI) | payer OTHER ==
[~2021-02-01] MED LIST changes: +CLEOCIN HCL150 MG PO; +VITAMIN B122500 MCG SL
[2021-02-02 08:08] LABS: HEP B CORE AB, IGM Negative (Negative); HEPATITIS B SURFACE AG Negative (Negative)
[2021-02-04 10:53] LABS: HEPATITIS C VIRUS ANTIBODY >11.0 s/co (0.0-0.9)
== END | disposition home or self-care (01) ==
LOC: LAB 15:54
PROVIDERS: ATTEND Internal Medicine
DX: S42.291A Other displaced fracture of upper end of right humerus, initial encounter for closed fracture (principal); M25.711 Osteophyte, right shoulder; M25.811 Other specified joint disorders, right shoulder; Z20.2 Contact with and (suspected) exposure to infections with a predominantly sexual mode of transmission; X58.XXXA Exposure to other specified factors, initial encounter; Y93.89 Activity, other specified; Y92.89 Other specified places as the place of occurrence of the external cause; Y99.8 Other external cause status

== ENCOUNTER → 2021-02-06 | Outpatient (CLI) | payer OTHER ==
[~2021-02-06] MED LIST changes: -CLEOCIN HCL150 MG PO
[2021-02-06 16:46] LABS: BASO # 0.1 10*3/uL (0.0-0.1); BASO % 0.5 % (0.0-1.0); EOS % 0.2 % (1.0-4.0); HEMATOCRIT 42.5 % (37.0-47.0); LYMPH # 1.6 10*3/uL (1.3-4.4); LYMPH % 17.1 % (27.0-41.0); MEAN CORPUSCULAR HGB 29.8 pg (27.0-31.0); MEAN PLATELET VOLUME 11.4 fl (9.6-12.3); MONO % 10.2 % (3.0-9.0); NEUT # 6.8 10*3/uL (2.3-7.9); NEUT % 71.7 % (47.0-73.0); PLATELET COUNT AUTOMATED 344 10*3/uL (130-400); RED BLOOD COUNT 4.57 10*6/uL (4.10-5.10); RED CELL DISTRI WIDTH 14.2 % (0-14.5); WHITE BLOOD COUNT 9.5 10*3/uL (4.8-10.8)
[2021-02-06 17:00] LABS: ALBUMIN 3.5 gm/dl (3.1-4.5); ALKALINE PHOSPHATASE 76 U/L (45-117); BUN 13 mg/dl (7-24); CHLORIDE 103 mmol/L (98-107); CREATININE 0.54 mg/dL (0.55-1.02); POTASSIUM 3.7 mmol/L (3.5-5.1); SGOT/AST 20 IU/L (3-35); SGPT/ALT 14 U/L (12-78); SODIUM 136 mmol/L (136-145); TOTAL PROTEIN 7.2 gm/dL (6.4-8.2)
== END | disposition home or self-care (01) ==
LOC: LAB 15:43
PROVIDERS: ATTEND Nurse Practitioner Family
DX: M19.032 Primary osteoarthritis, left wrist (principal); M85.832 Other specified disorders of bone density and structure, left forearm; M54.2 Cervicalgia; M06.9 Rheumatoid arthritis, unspecified; F11.20 Opioid dependence, uncomplicated

== ENCOUNTER → 2021-02-08 | Outpatient (CLI) | payer OTHER | END | disposition home or self-care (01) | LOC: LAB 14:28 | PROVIDERS: ATTEND Dentist General Practice | DX: Z01.818 Encounter for other preprocedural examination (principal); K02.9 Dental caries, unspecified; Z20.822 Contact with and (suspected) exposure to COVID-19 ==

== ENCOUNTER → 2021-02-12 | Day surgery (SDC) | payer OTHER ==
[~2021-02-12] VITALS: Ht 162.5 cm; Wt 55.3 kg
[~2021-02-12] MED LIST changes: +CLEOCIN HCL150 MG PO
[2021-02-12 10:15] VITALS: BP 110/65
[2021-02-12 12:24] VITALS: BP 89/48
[2021-02-12 12:40] VITALS: BP 108/57
[2021-02-12 12:55] VITALS: BP 106/61
[2021-02-12 13:10] VITALS: BP 103/59
[2021-02-12 14:06] VITALS: BP 100/61
== END | disposition home or self-care (01) ==
LOC: SDC 02-08 14:00
PROVIDERS: ATTEND Dentist General Practice
DX: K02.9 Dental caries, unspecified (principal); F41.9 Anxiety disorder, unspecified; K00.7 Teething syndrome; I10 Essential (primary) hypertension; N76.0 Acute vaginitis; F41.0 Panic disorder [episodic paroxysmal anxiety]; M06.9 Rheumatoid arthritis, unspecified; M62.830 Muscle spasm of back; L03.114 Cellulitis of left upper limb; F51.01 Primary insomnia; E55.9 Vitamin D deficiency, unspecified; K21.9 Gastro-esophageal reflux disease without esophagitis; M18.0 Bilateral primary osteoarthritis of first carpometacarpal joints; D50.9 Iron deficiency anemia, unspecified; E53.8 Deficiency of other specified B group vitamins; J30.2 Other seasonal allergic rhinitis; F17.210 Nicotine dependence, cigarettes, uncomplicated; Z79.899 Other long term (current) drug therapy; G43.909 Migraine, unspecified, not intractable, without status migrainosus; M81.0 Age-related osteoporosis without current pathological fracture

== ENCOUNTER 2021-03-03 10:37 | Inpatient (IN) | payer OTHER ==
[~2021-03-03] VITALS: Ht 162.6 cm; Wt 55.3 kg
[2021-03-03 10:44] VITALS: BP 137/90
[2021-03-03 10:58] LABS: BASO # 0.1 10*3/uL (0.0-0.1); BASO % 0.6 % (0.0-1.0); HEMATOCRIT 44.8 % (37.0-47.0); LYMPH # 1.6 10*3/uL (1.3-4.4); LYMPH % 10.2 % (27.0-41.0); MEAN CELL VOLUME 89.6 fl (81.0-99.0); MEAN CORPUSCULAR HGB 29.2 pg (27.0-31.0); MEAN CORPUSCULAR HGB CONC 32.6 g/dl (33.0-37.0); MEAN PLATELET VOLUME 9.7 fl (9.6-12.3); MONO # 1.5 10*3/uL (0.1-1.0); MONO % 9.5 % (3.0-9.0); NEUT # 12.2 10*3/uL (2.3-7.9); NEUT % 79.4 % (47.0-73.0); PLATELET COUNT AUTOMATED 479 10*3/uL (130-400); RED CELL DISTRI WIDTH 13.3 % (0-14.5); WHITE BLOOD COUNT 15.3 10*3/uL (4.8-10.8)
[2021-03-03 11:15] LABS: ALBUMIN 4.3 gm/dl (3.1-4.5); ALKALINE PHOSPHATASE 103 U/L (45-117); BUN 26 mg/dl (7-24); CHLORIDE 104 mmol/L (98-107); CREATININE 0.76 mg/dL (0.55-1.02); POTASSIUM 3.6 mmol/L (3.5-5.1); SGOT/AST 38 IU/L (3-35); SGPT/ALT 21 U/L (12-78); SODIUM 136 mmol/L (136-145); TOTAL PROTEIN 8.5 gm/dL (6.4-8.2)
[2021-03-03 11:18] LABS: ACETAMINOPHEN (TYLENOL) < 5.0 ug/ml (10-30); ETHYL ALCOHOL < 3.0 mg/dl (<3)
[2021-03-03 15:21] LABS: BILIRUBIN Negative (Negative); BLOOD Negative (Negative); CLARITY Cloudy (Clear); COLOR Yellow (Yellow); GLUCOSE Negative (Negative); KETONE 3+ (Negative); LEUKO ESTERASE Trace (Negative); NITRITE Negative (Negative); SPECIFIC GRAVITY >= 1.030 (1.001-1.030)
[2021-03-03 15:31] LABS: URINE AMPHETAMINES > 1000 (1000ng/ml); URINE BARBITURATES < 200 (200ng/ml); URINE BENZODIAZEPINES < 200 (200ng/ml); URINE CANNABINOIDS (THC) < 50 (50ng/ml); URINE COCAINE < 300 (300ng/ml); URINE METHADONE < 300 (300ng/ml); URINE OPIATES < 300 (300ng/ml)
[2021-03-03 15:33] LABS: BACTERIA 2+; EPITHELIAL CELLS 41-50; WBC 16-20 wbc/hpf (0-5)
[2021-03-03 15:36] LABS: URINE PHENCYCLIDINE < 25 (25ng/ml)
[2021-03-03] MEDS ORDERED: FEROSUL325 M1 PO (16:37)
[2021-03-03] MEDS ORDERED: BUPRENORPHINE-1 EAC2 SL (16:37)
[2021-03-03] MEDS ORDERED: PREDNISONE5 MG PO (16:39)
[2021-03-03] MEDS ORDERED: BUSPIRONE HCL10 MG PO (16:39)
[2021-03-03 18:14] VITALS: BP 138/88
[2021-03-03] MEDS ORDERED: SUBOXONE 8 MG-1 EACH SL (18:20)
[2021-03-04 03:55] VITALS: BP 146/78
[2021-03-04 05:32] LABS: ALBUMIN 3.5 gm/dl (3.1-4.5); ALKALINE PHOSPHATASE 92 U/L (45-117); BUN 24 mg/dl (7-24); CHLORIDE 106 mmol/L (98-107); POTASSIUM 3.4 mmol/L (3.5-5.1); SGOT/AST 36 IU/L (3-35); SGPT/ALT 19 U/L (12-78); SODIUM 137 mmol/L (136-145); TOTAL PROTEIN 7.4 gm/dL (6.4-8.2)
[2021-03-04 06:45] LABS: BASO # 0.1 10*3/uL (0.0-0.1); BASO % 0.6 % (0.0-1.0); HEMATOCRIT 44.1 % (37.0-47.0); LYMPH # 1.8 10*3/uL (1.3-4.4); LYMPH % 17.2 % (27.0-41.0); MEAN CELL VOLUME 91.1 fl (81.0-99.0); MEAN CORPUSCULAR HGB 29.1 pg (27.0-31.0); MEAN PLATELET VOLUME 11.8 fl (9.6-12.3); MONO # 1.3 10*3/uL (0.1-1.0); MONO % 13.1 % (3.0-9.0); NEUT % 68.6 % (47.0-73.0); PLATELET COUNT AUTOMATED 417 10*3/uL (130-400); RED BLOOD COUNT 4.84 10*6/uL (4.10-5.10); RED CELL DISTRI WIDTH 13.5 % (0-14.5); WHITE BLOOD COUNT 10.2 10*3/uL (4.8-10.8)
[2021-03-04 07:33] VITALS: BP 117/78
[2021-03-04 10:05] VITALS: BP 175/97
[2021-03-04 20:00] VITALS: BP 124/76
[2021-03-05] VITALS: BP 139/76
[2021-03-05 06:32] LABS: CHLORIDE 105 mmol/L (98-107); POTASSIUM 3.5 mmol/L (3.5-5.1); SODIUM 137 mmol/L (136-145)
[2021-03-05 06:35] LABS: BUN 17 mg/dl (7-24)
[2021-03-05 08:00] VITALS: BP 137/88
[2021-03-05 13:08] VITALS: BP 122/76
[2021-03-05 16:00] VITALS: BP 126/71
[2021-03-06] VITALS (9 sets, daily range): BP systolic 90–128; BP diastolic 42–78
[2021-03-06 09:38] LABS: ALBUMIN 3.2 gm/dl (3.1-4.5); ALKALINE PHOSPHATASE 93 U/L (45-117); BUN 14 mg/dl (7-24); CHLORIDE 110 mmol/L (98-107); CREATININE 0.46 mg/dL (0.55-1.02); POTASSIUM 3.7 mmol/L (3.5-5.1); SGOT/AST 32 IU/L (3-35); SGPT/ALT 23 U/L (12-78); SODIUM 137 mmol/L (136-145); TOTAL PROTEIN 7.8 gm/dL (6.4-8.2)
[2021-03-06 10:10] LABS: BASO # 0.1 10*3/uL (0.0-0.1); BASO % 0.6 % (0.0-1.0); HEMATOCRIT 46.9 % (37.0-47.0); LYMPH # 1.9 10*3/uL (1.3-4.4); LYMPH % 19.3 % (27.0-41.0); MEAN CELL VOLUME 91.2 fl (81.0-99.0); MEAN CORPUSCULAR HGB 29.4 pg (27.0-31.0); MEAN CORPUSCULAR HGB CONC 32.2 g/dl (33.0-37.0); MEAN PLATELET VOLUME 10.2 fl (9.6-12.3); MONO # 0.8 10*3/uL (0.1-1.0); MONO % 8.6 % (3.0-9.0); NEUT # 6.9 10*3/uL (2.3-7.9); NEUT % 71.3 % (47.0-73.0); PLATELET COUNT AUTOMATED 409 10*3/uL (130-400); RED BLOOD COUNT 5.14 10*6/uL (4.10-5.10); RED CELL DISTRI WIDTH 13.2 % (0-14.5); WHITE BLOOD COUNT 9.7 10*3/uL (4.8-10.8)
[2021-03-07] VITALS: BP 102/88
[2021-03-07 06:27] LABS: BASO % 0.6 % (0.0-1.0); HEMATOCRIT 38.9 % (37.0-47.0); LYMPH # 1.7 10*3/uL (1.3-4.4); MEAN CORPUSCULAR HGB 29.3 pg (27.0-31.0); MEAN CORPUSCULAR HGB CONC 31.9 g/dl (33.0-37.0); MEAN PLATELET VOLUME 11.2 fl (9.6-12.3); MONO # 0.8 10*3/uL (0.1-1.0); MONO % 10.4 % (3.0-9.0); NEUT # 4.7 10*3/uL (2.3-7.9); NEUT % 64.7 % (47.0-73.0); PLATELET COUNT AUTOMATED 359 10*3/uL (130-400); RED BLOOD COUNT 4.23 10*6/uL (4.10-5.10); RED CELL DISTRI WIDTH 13.3 % (0-14.5); WHITE BLOOD COUNT 7.2 10*3/uL (4.8-10.8)
[2021-03-07 06:31] LABS: CHLORIDE 109 mmol/L (98-107); POTASSIUM 3.4 mmol/L (3.5-5.1); SODIUM 138 mmol/L (136-145)
[2021-03-07 06:35] LABS: ALBUMIN 2.7 gm/dl (3.1-4.5); ALKALINE PHOSPHATASE 79 U/L (45-117); BUN 10 mg/dl (7-24); CREATININE 0.32 mg/dL (0.55-1.02); SGOT/AST 23 IU/L (3-35); SGPT/ALT 17 U/L (12-78); TOTAL PROTEIN 6.5 gm/dL (6.4-8.2)
[2021-03-07 09:51] VITALS: BP 105/64
[2021-03-07 12:00] VITALS: BP 103/68
[2021-03-07 16:00] VITALS: BP 106/65
[2021-03-07 20:00] VITALS: BP 107/69
[2021-03-08] VITALS: BP 99/58
[2021-03-08 06:07] LABS: HEMATOCRIT 39.6 % (37.0-47.0); MEAN CELL VOLUME 91.5 fl (81.0-99.0); MEAN CORPUSCULAR HGB 29.3 pg (27.0-31.0); MEAN CORPUSCULAR HGB CONC 32.1 g/dl (33.0-37.0); MEAN PLATELET VOLUME 10.9 fl (9.6-12.3); PLATELET COUNT AUTOMATED 338 10*3/uL (130-400); RED BLOOD COUNT 4.33 10*6/uL (4.10-5.10); RED CELL DISTRI WIDTH 13.2 % (0-14.5); WHITE BLOOD COUNT 6.3 10*3/uL (4.8-10.8)
[2021-03-08 06:28] LABS: ALBUMIN 2.6 gm/dl (3.1-4.5); ALKALINE PHOSPHATASE 83 U/L (45-117); BUN 6 mg/dl (7-24); CHLORIDE 108 mmol/L (98-107); POTASSIUM 3.7 mmol/L (3.5-5.1); SGOT/AST 18 IU/L (3-35); SGPT/ALT 16 U/L (12-78); SODIUM 139 mmol/L (136-145); TOTAL PROTEIN 6.6 gm/dL (6.4-8.2)
[2021-03-08 07:21] LABS: BASOPHILS 2 % (0-1); PLATELET SUFFICIENCY NORMAL (NORMAL); TOTAL CELLS COUNTED 100 #CELLS
[2021-03-08 08:00] VITALS: BP 100/64
[2021-03-08 12:00] VITALS: BP 132/80
[2021-03-08 16:00] VITALS: BP 125/56
[2021-03-08 20:00] VITALS: BP 91/55
[2021-03-09] VITALS: BP 98/57
[2021-03-09 08:00] VITALS: BP 108/69
[2021-03-09 08:04] LABS: HEMATOCRIT 38.4 % (37.0-47.0); MEAN CELL VOLUME 91.6 fl (81.0-99.0); MEAN CORPUSCULAR HGB 29.4 pg (27.0-31.0); MEAN PLATELET VOLUME 10.4 fl (9.6-12.3); PLATELET COUNT AUTOMATED 326 10*3/uL (130-400); RED BLOOD COUNT 4.19 10*6/uL (4.10-5.10); RED CELL DISTRI WIDTH 13.2 % (0-14.5); WHITE BLOOD COUNT 5.7 10*3/uL (4.8-10.8)
[2021-03-09 08:26] LABS: BASOPHILS 1 % (0-1); TOTAL CELLS COUNTED 100 #CELLS
[2021-03-09 08:27] LABS: PLATELET SUFFICIENCY NORMAL (NORMAL)
[2021-03-09 12:00] VITALS: BP 130/59
[2021-03-09 16:00] VITALS: BP 107/67
[2021-03-09 20:00] VITALS: BP 124/78
[2021-03-10] VITALS: BP 109/62
[2021-03-10 08:00] VITALS: BP 98/60
[2021-03-10 12:00] VITALS: BP 111/71
[2021-03-10 16:00] VITALS: BP 107/64
[2021-03-10 20:00] VITALS: BP 119/72
[2021-03-11] VITALS: BP 116/67
[2021-03-11 06:13] LABS: ALBUMIN 3.3 gm/dl (3.1-4.5); ALKALINE PHOSPHATASE 91 U/L (45-117); BUN 10 mg/dl (7-24); CHLORIDE 102 mmol/L (98-107); POTASSIUM 4.1 mmol/L (3.5-5.1); SGOT/AST 15 IU/L (3-35); SGPT/ALT 15 U/L (12-78); SODIUM 135 mmol/L (136-145); TOTAL PROTEIN 7.5 gm/dL (6.4-8.2)
[2021-03-11 06:39] LABS: BASO % 0.7 % (0.0-1.0); EOS # 0.2 10*3/uL (0.0-0.4); EOS % 2.4 % (1.0-4.0); HEMATOCRIT 42.9 % (37.0-47.0); LYMPH % 33.2 % (27.0-41.0); MEAN CELL VOLUME 90.7 fl (81.0-99.0); MEAN CORPUSCULAR HGB 30.4 pg (27.0-31.0); MEAN CORPUSCULAR HGB CONC 33.6 g/dl (33.0-37.0); MEAN PLATELET VOLUME 11.7 fl (9.6-12.3); MONO # 0.7 10*3/uL (0.1-1.0); MONO % 10.6 % (3.0-9.0); NEUT # 3.2 10*3/uL (2.3-7.9); NEUT % 52.8 % (47.0-73.0); PLATELET COUNT AUTOMATED 347 10*3/uL (130-400); RED BLOOD COUNT 4.73 10*6/uL (4.10-5.10); RED CELL DISTRI WIDTH 13.1 % (0-14.5); WHITE BLOOD COUNT 6.1 10*3/uL (4.8-10.8)
[2021-03-11 08:00] VITALS: BP 120/64
[2021-03-11 12:00] VITALS: BP 100/63
[2021-03-11 16:00] VITALS: BP 100/61
[2021-03-11] MEDS ORDERED: XARELTO10 MG PO (16:24)
[2021-03-11] MEDS ORDERED: RISPERDAL0.5 MG PO (16:30)
[2021-03-11] MEDS ORDERED: ZOFRAN4 MG PO (18:34)
== END 2021-03-11 17:32 | disposition home health service (06) | DRG 314 ==
LOC: ED 10:37 → 5E 16:28 → EDHOLD 16:28 → 5E 03-04 09:58
PROVIDERS: Internal Medicine; Podiatrist Foot & Ankle Surgery; Social Worker Clinical; Student in an Organized Health Care Education/Training Program; ADMIT Internal Medicine; ATTEND Internal Medicine
PROC: 0QSM35Z Reposition Left Tarsal with External Fixation Device, Percutaneous Approach (ICD-10-PCS; principal; 2021-03-03)
DX: S92.002A Unspecified fracture of left calcaneus, initial encounter for closed fracture (principal); G92 Toxic encephalopathy; M06.9 Rheumatoid arthritis, unspecified; N39.0 Urinary tract infection, site not specified; E43 Unspecified severe protein-calorie malnutrition; M32.9 Systemic lupus erythematosus, unspecified; R65.10 Systemic inflammatory response syndrome (SIRS) of non-infectious origin without acute organ dysfunction; K21.9 Gastro-esophageal reflux disease without esophagitis; F32.9 Major depressive disorder, single episode, unspecified; F17.210 Nicotine dependence, cigarettes, uncomplicated; S92.311A Displaced fracture of first metatarsal bone, right foot, initial encounter for closed fracture; M81.0 Age-related osteoporosis without current pathological fracture; F41.9 Anxiety disorder, unspecified; G89.29 Other chronic pain; M54.9 Dorsalgia, unspecified; G62.9 Polyneuropathy, unspecified; R79.89 Other specified abnormal findings of blood chemistry; T43.625A Adverse effect of amphetamines, initial encounter; F15.13 Other stimulant abuse with withdrawal; L98.499 Non-pressure chronic ulcer of skin of other sites with unspecified severity; M51.37 Other intervertebral disc degeneration, lumbosacral region; F15.150 Other stimulant abuse with stimulant-induced psychotic disorder with delusions; M51.36 Other intervertebral disc degeneration, lumbar region; E87.6 Hypokalemia; Z88.8 Allergy status to other drugs, medicaments and biological substances; Z91.041 Radiographic dye allergy status; Z98.51 Tubal ligation status; Z83.3 Family history of diabetes mellitus; Z82.5 Family history of asthma and other chronic lower respiratory diseases; Z82.49 Family history of ischemic heart disease and other diseases of the circulatory system; Z84.89 Family history of other specified conditions; Z87.440 Personal history of urinary (tract) infections; Z86.14 Personal history of Methicillin resistant Staphylococcus aureus infection; Z79.899 Other long term (current) drug therapy; Y92.89 Other specified places as the place of occurrence of the external cause; W17.89XA Other fall from one level to another, initial encounter; Y93.39 Activity, other involving climbing, rappelling and jumping off; Y99.8 Other external cause status; Z68.20 Body mass index [BMI] 20.0-20.9, adult

== ENCOUNTER 2021-06-09 13:12 | Emergency (ER) | payer OTHER ==
[~2021-06-09] VITALS: Wt 55.3 kg
[~2021-06-09 13:12] MED LIST changes: +BUPRENORPHINE-1 EAC2 SL; +BUSPIRONE HCL10 MG PO; +FEROSUL325 M1 PO; +RISPERDAL0.5 MG PO; +SUBOXONE 8 MG-1 EACH SL; +XARELTO10 MG PO
[2021-06-09 13:31] VITALS: BP 122/67
[2021-06-09] MEDS ORDERED: PREDNISONE20 M1 PO (14:31)
== END 2021-06-09 14:34 | disposition home or self-care (01) ==
LOC: ED 13:12
DX: L25.9 Unspecified contact dermatitis, unspecified cause (principal); F17.200 Nicotine dependence, unspecified, uncomplicated; Z88.8 Allergy status to other drugs, medicaments and biological substances; Z91.041 Radiographic dye allergy status; Z79.899 Other long term (current) drug therapy

== ENCOUNTER → 2021-06-27 | Outpatient (CLI) | payer OTHER ==
[2021-06-27 13:46] LABS: BILIRUBIN Negative (Negative); BLOOD Negative (Negative); CLARITY Clear (Clear); COLOR Dark Yellow (Yellow); GLUCOSE Negative (Negative); KETONE Trace (Negative); LEUKO ESTERASE Negative (Negative); NITRITE Negative (Negative); PH 5.5 (4.5-8.0); SPECIFIC GRAVITY >= 1.030 (1.001-1.030)
[2021-06-27 13:51] LABS: RBC 0-2 rbc/hpf (0-2); WBC 0-2 wbc/hpf (0-5)
[2021-06-27 13:52] LABS: BACTERIA TRACE; EPITHELIAL CELLS 0-2
== END | disposition home or self-care (01) ==
LOC: LAB 13:16
PROVIDERS: ATTEND Internal Medicine
DX: M47.817 Spondylosis without myelopathy or radiculopathy, lumbosacral region (principal); M51.37 Other intervertebral disc degeneration, lumbosacral region; R30.0 Dysuria

== ENCOUNTER → 2021-07-05 | Outpatient (CLI) | payer OTHER ==
[2021-07-05 10:40] LABS: BASO # 0.1 10*3/uL (0.0-0.1); BASO % 0.7 % (0.0-1.0); HEMATOCRIT 42.5 % (37.0-47.0); LYMPH # 3.7 10*3/uL (1.3-4.4); LYMPH % 32.5 % (27.0-41.0); MEAN CELL VOLUME 92.8 fl (81.0-99.0); MEAN CORPUSCULAR HGB 30.1 pg (27.0-31.0); MEAN CORPUSCULAR HGB CONC 32.5 g/dl (33.0-37.0); MONO # 0.9 10*3/uL (0.1-1.0); NEUT # 6.6 10*3/uL (2.3-7.9); NEUT % 58.3 % (47.0-73.0); PLATELET COUNT AUTOMATED 312 10*3/uL (130-400); RED BLOOD COUNT 4.58 10*6/uL (4.10-5.10); RED CELL DISTRI WIDTH 12.8 % (0-14.5); WHITE BLOOD COUNT 11.3 10*3/uL (4.8-10.8)
[2021-07-05 11:01] LABS: THYROID STIM HORMONE (HS) 1.13 uIU/ml (0.358-4.75)
== END | disposition home or self-care (01) ==
LOC: LAB 10:22
PROVIDERS: ATTEND Internal Medicine
DX: D50.9 Iron deficiency anemia, unspecified (principal); N95.1 Menopausal and female climacteric states

== ENCOUNTER 2021-07-11 17:52 | Emergency (ER) | payer OTHER ==
[2021-07-11 18:15] VITALS: BP 117/77
[2021-07-11 23:23] LABS: BASO # 0.1 10*3/uL (0.0-0.1); BASO % 0.8 % (0.0-1.0); HEMATOCRIT 42.5 % (37.0-47.0); LYMPH # 2.4 10*3/uL (1.3-4.4); LYMPH % 25.2 % (27.0-41.0); MEAN CELL VOLUME 94.2 fl (81.0-99.0); MEAN CORPUSCULAR HGB 30.4 pg (27.0-31.0); MEAN CORPUSCULAR HGB CONC 32.2 g/dl (33.0-37.0); MEAN PLATELET VOLUME 9.9 fl (9.6-12.3); MONO # 0.9 10*3/uL (0.1-1.0); MONO % 9.2 % (3.0-9.0); NEUT # 6.1 10*3/uL (2.3-7.9); NEUT % 64.1 % (47.0-73.0); PLATELET COUNT AUTOMATED 301 10*3/uL (130-400); RED BLOOD COUNT 4.51 10*6/uL (4.10-5.10); RED CELL DISTRI WIDTH 12.6 % (0-14.5); WHITE BLOOD COUNT 9.6 10*3/uL (4.8-10.8)
[2021-07-11 23:39] LABS: ALBUMIN 3.3 gm/dl (3.1-4.5); ALKALINE PHOSPHATASE 105 U/L (45-117); BUN 15 mg/dl (7-24); CHLORIDE 109 mmol/L (98-107); CREATININE 0.63 mg/dL (0.55-1.02); POTASSIUM 3.9 mmol/L (3.5-5.1); SGOT/AST 13 IU/L (3-35); SGPT/ALT 18 U/L (12-78); SODIUM 141 mmol/L (136-145); TOTAL PROTEIN 6.9 gm/dL (6.4-8.2); URIC ACID 3.8 mg/dL (2.6-6.0)
[2021-07-12] MEDS ORDERED: CLINDAMYCIN HC300 MG PO (03:30)
== END 2021-07-12 05:25 | disposition home or self-care (01) ==
LOC: ED 17:52
PROVIDERS: Physician Assistant
DX: L03.115 Cellulitis of right lower limb (principal); F17.200 Nicotine dependence, unspecified, uncomplicated; Z91.041 Radiographic dye allergy status; Z88.8 Allergy status to other drugs, medicaments and biological substances; Z79.899 Other long term (current) drug therapy

== ENCOUNTER 2021-07-31 18:04 | Emergency (ER) | payer OTHER ==
[~2021-07-31] VITALS: Ht 162.5 cm; Wt 59.0 kg
[2021-07-31 18:15] VITALS: BP 127/82
[2021-07-31] MEDS ORDERED: PREDNISONE20 M1 PO (19:12)
== END 2021-07-31 19:15 | disposition home or self-care (01) ==
LOC: ED 18:04
DX: M06.8A Other specified rheumatoid arthritis, other specified site (principal); F17.200 Nicotine dependence, unspecified, uncomplicated; Z91.041 Radiographic dye allergy status; Z88.8 Allergy status to other drugs, medicaments and biological substances; Z79.899 Other long term (current) drug therapy

== ENCOUNTER 2021-08-18 17:31 | Emergency (ER) | payer OTHER ==
[~2021-08-18] VITALS: Ht 162.5 cm; Wt 61.2 kg
[2021-08-18 17:42] VITALS: BP 123/70
[2021-08-18] MEDS ORDERED: PREDNISONE10 MG PO (17:59)
== END 2021-08-18 19:10 | disposition home or self-care (01) ==
LOC: ED 17:31
DX: M06.842 Other specified rheumatoid arthritis, left hand (principal); M06.841 Other specified rheumatoid arthritis, right hand

== ENCOUNTER 2021-09-24 19:48 | Emergency (ER) | payer OTHER ==
[~2021-09-24] VITALS: Ht 162.5 cm; Wt 61.2 kg
[2021-09-24 19:52] VITALS: BP 136/78
[2021-09-24 22:53] LABS: BASO # 0.1 10*3/uL (0.0-0.1); BASO % 0.8 % (0.0-1.0); EOS % 0.1 % (1.0-4.0); LYMPH # 2.5 10*3/uL (1.3-4.4); LYMPH % 23.5 % (27.0-41.0); MEAN CELL VOLUME 91.9 fl (81.0-99.0); MEAN CORPUSCULAR HGB 30.1 pg (27.0-31.0); MEAN CORPUSCULAR HGB CONC 32.7 g/dl (33.0-37.0); MEAN PLATELET VOLUME 10.4 fl (9.6-12.3); MONO # 0.8 10*3/uL (0.1-1.0); MONO % 7.2 % (3.0-9.0); NEUT # 7.2 10*3/uL (2.3-7.9); NEUT % 68.1 % (47.0-73.0); PLATELET COUNT AUTOMATED 319 10*3/uL (130-400); RED BLOOD COUNT 4.79 10*6/uL (4.10-5.10); RED CELL DISTRI WIDTH 12.3 % (0-14.5); WHITE BLOOD COUNT 10.6 10*3/uL (4.8-10.8)
[2021-09-24 23:10] LABS: ALBUMIN 3.5 gm/dl (3.1-4.5); ALKALINE PHOSPHATASE 100 U/L (45-117); BUN 9 mg/dl (7-24); CHLORIDE 109 mmol/L (98-107); POTASSIUM 3.4 mmol/L (3.5-5.1); SGOT/AST 20 IU/L (3-35); SGPT/ALT 16 U/L (12-78); SODIUM 138 mmol/L (136-145); TOTAL PROTEIN 7.2 gm/dL (6.4-8.2)
[2021-09-25] MEDS ORDERED: PREDNISONE20 M1 PO (00:13)
== END 2021-09-25 00:29 | disposition home or self-care (01) ==
LOC: ED 19:48
PROVIDERS: Emergency Medicine
DX: M25.541 Pain in joints of right hand (principal)

== ENCOUNTER 2021-11-09 21:45 | Emergency (ER) | payer OTHER ==
[~2021-11-09] VITALS: Ht 165.1 cm; Wt 64.4 kg
[2021-11-09 21:59] VITALS: BP 154/84
[2021-11-09] MEDS ORDERED: PREDNISONE10 MG PO (22:17)
== END 2021-11-09 22:34 | disposition home or self-care (01) ==
LOC: ED 21:45
DX: M06.9 Rheumatoid arthritis, unspecified (principal); Z87.891 Personal history of nicotine dependence; Z98.51 Tubal ligation status; Z98.890 Other specified postprocedural states; Z79.899 Other long term (current) drug therapy; Z91.041 Radiographic dye allergy status; Z88.8 Allergy status to other drugs, medicaments and biological substances

== ENCOUNTER → 2021-12-04 | Outpatient (CLI) | payer OTHER ==
[2021-12-04 16:37] LABS: BASO % 0.3 % (0.0-1.0); LYMPH # 0.8 10*3/uL (1.3-4.4); LYMPH % 7.1 % (27.0-41.0); MEAN CORPUSCULAR HGB 29.7 pg (27.0-31.0); MEAN CORPUSCULAR HGB CONC 33.3 g/dl (33.0-37.0); MEAN PLATELET VOLUME 9.7 fl (9.6-12.3); MONO # 0.3 10*3/uL (0.1-1.0); MONO % 2.5 % (3.0-9.0); NEUT # 10.6 10*3/uL (2.3-7.9); NEUT % 89.6 % (47.0-73.0); PLATELET COUNT AUTOMATED 354 10*3/uL (130-400); RED BLOOD COUNT 4.72 10*6/uL (4.10-5.10); WHITE BLOOD COUNT 11.8 10*3/uL (4.8-10.8)
[2021-12-04 17:00] LABS: ALKALINE PHOSPHATASE 103 U/L (45-117); BUN 17 mg/dl (7-24); CHLORIDE 108 mmol/L (98-107); CREATININE 0.63 mg/dL (0.55-1.02); FREE T4 1.14 ng/dl (0.76-1.46); POTASSIUM 3.8 mmol/L (3.5-5.1); SGOT/AST 19 IU/L (3-35); SGPT/ALT 18 U/L (12-78); SODIUM 138 mmol/L (136-145); TOTAL PROTEIN 7.4 gm/dL (6.4-8.2)
[2021-12-04 17:07] LABS: THYROID STIM HORMONE (HS) 0.398 uIU/ml (0.358-4.75)
== END | disposition home or self-care (01) ==
LOC: RAD 15:42 → LAB 15:42
PROVIDERS: ATTEND Internal Medicine
DX: S92.331A Displaced fracture of third metatarsal bone, right foot, initial encounter for closed fracture (principal); S92.341A Displaced fracture of fourth metatarsal bone, right foot, initial encounter for closed fracture; X58.XXXA Exposure to other specified factors, initial encounter; Y93.89 Activity, other specified; Y92.89 Other specified places as the place of occurrence of the external cause; Y99.8 Other external cause status

== ENCOUNTER 2022-01-04 16:54 | Emergency (ER) | payer OTHER ==
[~2022-01-04] VITALS: Wt 65.8 kg
[2022-01-04 17:06] VITALS: BP 147/80
[2022-01-04] MEDS ORDERED: PREDNISONE10 MG PO (17:19)
== END 2022-01-04 17:36 | disposition home or self-care (01) ==
LOC: ED 16:54
DX: M06.9 Rheumatoid arthritis, unspecified (principal); Z91.041 Radiographic dye allergy status; Z88.8 Allergy status to other drugs, medicaments and biological substances; Z79.899 Other long term (current) drug therapy; Z98.51 Tubal ligation status; Z98.890 Other specified postprocedural states; F17.200 Nicotine dependence, unspecified, uncomplicated

== ENCOUNTER 2022-01-28 23:26 | Emergency (ER) | payer OTHER ==
[~2022-01-28] VITALS: Ht 167.6 cm; Wt 72.6 kg
[2022-01-29 00:55] VITALS: BP 136/78
[2022-01-29] MEDS ORDERED: PREDNISONE10 M1 PO (01:56)
== END 2022-01-29 02:43 | disposition home or self-care (01) ==
LOC: ED 23:26
DX: M06.841 Other specified rheumatoid arthritis, right hand (principal); M06.842 Other specified rheumatoid arthritis, left hand; K21.9 Gastro-esophageal reflux disease without esophagitis; Z91.041 Radiographic dye allergy status; Z88.8 Allergy status to other drugs, medicaments and biological substances; Z79.899 Other long term (current) drug therapy; Z98.51 Tubal ligation status; Z87.891 Personal history of nicotine dependence

== ENCOUNTER 2022-04-11 13:33 | Emergency (ER) | payer OTHER ==
[~2022-04-11 13:33] MED LIST changes: +PREDNISONE10 M1 PO
[2022-04-11 13:41] VITALS: BP 127/72
[2022-04-11] MEDS ORDERED: PREDNISONE10 MG PO (13:56)
== END 2022-04-11 14:01 | disposition home or self-care (01) ==
LOC: ED 13:33
DX: M06.9 Rheumatoid arthritis, unspecified (principal); F17.200 Nicotine dependence, unspecified, uncomplicated; Z91.041 Radiographic dye allergy status; Z88.8 Allergy status to other drugs, medicaments and biological substances; Z79.899 Other long term (current) drug therapy; Z98.51 Tubal ligation status; Z98.890 Other specified postprocedural states

== ENCOUNTER 2022-05-29 20:10 | Emergency (ER) | payer OTHER ==
[~2022-05-29] VITALS: Ht 12.7 cm; Wt 59.0 kg
[2022-05-29 20:14] VITALS: BP 137/84
[2022-05-29] MEDS ORDERED: PREDNISONE10 MG PO (20:26)
== END 2022-05-29 20:41 | disposition home or self-care (01) ==
LOC: ED 20:10
DX: M06.842 Other specified rheumatoid arthritis, left hand (principal); M06.841 Other specified rheumatoid arthritis, right hand; F17.200 Nicotine dependence, unspecified, uncomplicated; Z91.041 Radiographic dye allergy status; Z88.8 Allergy status to other drugs, medicaments and biological substances; Z79.2 Long term (current) use of antibiotics; Z79.899 Other long term (current) drug therapy; Z98.51 Tubal ligation status; Z98.890 Other specified postprocedural states

== ENCOUNTER 2022-06-23 20:13 | Emergency (ER) | payer OTHER ==
[2022-06-23 20:24] VITALS: BP 114/70
== END 2022-06-23 20:37 | disposition home or self-care (01) ==
LOC: ED 20:13
DX: M06.9 Rheumatoid arthritis, unspecified (principal); Z91.041 Radiographic dye allergy status; Z88.8 Allergy status to other drugs, medicaments and biological substances; Z79.899 Other long term (current) drug therapy; Z98.51 Tubal ligation status; Z98.890 Other specified postprocedural states; Z87.891 Personal history of nicotine dependence

== ENCOUNTER 2022-07-08 19:32 | Emergency (ER) | payer OTHER ==
[~2022-07-08] VITALS: Ht 162.5 cm; Wt 63.5 kg
[2022-07-08 20:15] VITALS: BP 124/84
[2022-07-08] MEDS ORDERED: MEDROL DOSEPAK4 MG PO (21:24)
== END 2022-07-08 21:47 | disposition home or self-care (01) ==
LOC: ED 19:32
DX: M06.9 Rheumatoid arthritis, unspecified (principal); F14.10 Cocaine abuse, uncomplicated; Z98.51 Tubal ligation status; Z98.890 Other specified postprocedural states; Z79.899 Other long term (current) drug therapy; Z91.041 Radiographic dye allergy status; Z88.8 Allergy status to other drugs, medicaments and biological substances

== ENCOUNTER 2022-08-01 16:15 | Emergency (ER) | payer OTHER ==
[~2022-08-01] VITALS: Wt 61.2 kg
[2022-08-01 16:27] VITALS: BP 132/56
== END 2022-08-01 19:00 | disposition home or self-care (01) ==
LOC: ED 16:15
DX: S99.921A Unspecified injury of right foot, initial encounter (principal); Z91.041 Radiographic dye allergy status; Z88.8 Allergy status to other drugs, medicaments and biological substances; Z79.899 Other long term (current) drug therapy; Z98.51 Tubal ligation status; Z98.890 Other specified postprocedural states; Z87.891 Personal history of nicotine dependence; W50.0XXA Accidental hit or strike by another person, initial encounter; Y93.89 Activity, other specified; Y92.89 Other specified places as the place of occurrence of the external cause; Y99.8 Other external cause status

== ENCOUNTER → 2022-10-06 | Outpatient (CLI) | payer OTHER ==
[~2022-10-06] MED LIST changes: +ARIPIPRAZOLE5 MG PO; +BUSPIRONE HCL30 MG PO; +DEXMETHYLPHENID10 MG PO; +LORATADINE-D 11 EACH PO; +SUNMARK MUCUS600 MG PO; +TRAZODONE50 MG PO; +VILAZODONE HCL40 M1 PO
== END | disposition home or self-care (01) ==
LOC: RAD 14:28
PROVIDERS: ATTEND Internal Medicine
DX: M51.17 Intervertebral disc disorders with radiculopathy, lumbosacral region (principal)

== ENCOUNTER 2022-10-31 12:20 | Emergency (ER) | payer OTHER ==
[~2022-10-31] VITALS: Ht 162.5 cm; Wt 61.2 kg
[2022-10-31 12:27] VITALS: BP 166/68
[2022-10-31 14:25] LABS: BASO # 0.1 10*3/uL (0.0-0.1); BASO % 0.7 % (0.0-1.0); HEMATOCRIT 43.4 % (37.0-47.0); LYMPH # 0.9 10*3/uL (1.3-4.4); LYMPH % 10.3 % (27.0-41.0); MEAN CELL VOLUME 89.3 fl (81.0-99.0); MEAN CORPUSCULAR HGB 28.6 pg (27.0-31.0); MEAN PLATELET VOLUME 10.1 fl (9.6-12.3); MONO # 0.3 10*3/uL (0.1-1.0); MONO % 3.3 % (3.0-9.0); NEUT # 7.8 10*3/uL (2.3-7.9); NEUT % 85.3 % (47.0-73.0); PLATELET COUNT AUTOMATED 358 10*3/uL (130-400); RED BLOOD COUNT 4.86 10*6/uL (4.10-5.10); RED CELL DISTRI WIDTH 13.8 % (0-14.5); WHITE BLOOD COUNT 9.1 10*3/uL (4.8-10.8)
[2022-10-31 14:37] LABS: ACT PARTIAL THROMBO TIME 25.7 SECONDS (20.0-32.1); INTERNATIONAL NORM RATIO 0.9 (2.0-3.5)
[2022-10-31 14:44] LABS: ALKALINE PHOSPHATASE 109 U/L (46-116); BETA-HCG, QUANT < 3.0 mIU/mL (0-10); BUN 13 mg/dl (9-23); CHLORIDE 106 mmol/L (98-107); POTASSIUM 3.6 mmol/L (3.4-5.1); SGPT/ALT 14 U/L (10-49); TOTAL PROTEIN 7.2 gm/dL (6.0-8.0)
== END 2022-10-31 15:41 | disposition left against medical advice (07) ==
LOC: ED 12:20
PROVIDERS: Emergency Medicine
DX: M54.16 Radiculopathy, lumbar region (principal); Z91.041 Radiographic dye allergy status; Z88.8 Allergy status to other drugs, medicaments and biological substances; Z98.51 Tubal ligation status; Z98.890 Other specified postprocedural states; F17.200 Nicotine dependence, unspecified, uncomplicated

== ENCOUNTER 2022-12-02 19:12 | Emergency (ER) | payer OTHER ==
[~2022-12-02] VITALS: Ht 162.5 cm; Wt 61.2 kg
[2022-12-02 19:18] VITALS: BP 138/76
[2022-12-02] MEDS ORDERED: PREDNISONE10 MG PO ×2 (19:24)
== END 2022-12-02 19:40 | disposition home or self-care (01) ==
LOC: ED 19:12
DX: M06.9 Rheumatoid arthritis, unspecified (principal); Z91.041 Radiographic dye allergy status; M19.90 Unspecified osteoarthritis, unspecified site; G43.909 Migraine, unspecified, not intractable, without status migrainosus; Z88.8 Allergy status to other drugs, medicaments and biological substances; Z98.51 Tubal ligation status; Z98.890 Other specified postprocedural states; F17.200 Nicotine dependence, unspecified, uncomplicated; F14.10 Cocaine abuse, uncomplicated

== ENCOUNTER → 2022-12-10 | Day surgery (SDC) | payer OTHER ==
[2022-12-08 14:13] VITALS: BP 135/77
[~2022-12-10] VITALS: Ht 162.5 cm; Wt 67.1 kg
[2022-12-10 06:35] VITALS: BP 154/92
[2022-12-10 10:09] VITALS: BP 105/38
[2022-12-10 10:24] VITALS: BP 106/67
[2022-12-10 10:39] VITALS: BP 118/62
[2022-12-10 10:54] VITALS: BP 113/72
[2022-12-10 11:29] VITALS: BP 105/63
== END | disposition home or self-care (01) ==
LOC: SDC 12-08 13:15
PROVIDERS: ATTEND Podiatrist Foot & Ankle Surgery
DX: M19.071 Primary osteoarthritis, right ankle and foot (principal); G43.909 Migraine, unspecified, not intractable, without status migrainosus; Z86.73 Personal history of transient ischemic attack (TIA), and cerebral infarction without residual deficits; F41.9 Anxiety disorder, unspecified; F32.A Depression, unspecified; F17.210 Nicotine dependence, cigarettes, uncomplicated; F51.01 Primary insomnia; M06.9 Rheumatoid arthritis, unspecified; B35.1 Tinea unguium; Z79.899 Other long term (current) drug therapy; Z98.890 Other specified postprocedural states

== ENCOUNTER 2023-02-12 09:55 | Emergency (ER) | payer OTHER ==
[~2023-02-12] VITALS: Ht 162.5 cm; Wt 63.5 kg
[2023-02-12 10:07] VITALS: BP 127/78
[2023-02-12] MEDS ORDERED: PREDNISONE10 MG PO (10:57)
== END 2023-02-12 11:00 | disposition home or self-care (01) ==
LOC: ED 09:55
DX: M06.9 Rheumatoid arthritis, unspecified (principal); M25.542 Pain in joints of left hand; M25.541 Pain in joints of right hand; G43.909 Migraine, unspecified, not intractable, without status migrainosus; Z86.73 Personal history of transient ischemic attack (TIA), and cerebral infarction without residual deficits; Z91.041 Radiographic dye allergy status; Z88.8 Allergy status to other drugs, medicaments and biological substances; Z98.51 Tubal ligation status; Z98.890 Other specified postprocedural states; F17.200 Nicotine dependence, unspecified, uncomplicated; F14.10 Cocaine abuse, uncomplicated

== ENCOUNTER 2023-03-31 16:58 | Emergency (ER) | payer OTHER ==
[~2023-03-31] VITALS: Ht 162.5 cm; Wt 61.2 kg
[2023-03-31 17:05] VITALS: BP 136/80
[2023-03-31 17:55] LABS: BASO # 0.1 10*3/uL (0.0-0.1); BASO % 0.9 % (0.0-1.0); EOS # 0.4 10*3/uL (0.0-0.4); EOS % 3.9 % (1.0-4.0); HEMATOCRIT 46.4 % (37.0-47.0); LYMPH # 2.3 10*3/uL (1.3-4.4); LYMPH % 25.4 % (27.0-41.0); MEAN CELL VOLUME 90.6 fl (81.0-99.0); MEAN CORPUSCULAR HGB 29.3 pg (27.0-31.0); MEAN CORPUSCULAR HGB CONC 32.3 g/dl (33.0-37.0); MEAN PLATELET VOLUME 10.4 fl (9.6-12.3); MONO # 0.8 10*3/uL (0.1-1.0); MONO % 8.9 % (3.0-9.0); NEUT # 5.5 10*3/uL (2.3-7.9); NEUT % 60.5 % (47.0-73.0); PLATELET COUNT AUTOMATED 364 10*3/uL (130-400); RED BLOOD COUNT 5.12 10*6/uL (4.10-5.10); RED CELL DISTRI WIDTH 12.9 % (0-14.5); WHITE BLOOD COUNT 9.2 10*3/uL (4.8-10.8)
[2023-03-31 18:18] LABS: ALKALINE PHOSPHATASE 122 U/L (46-116); BUN 7 mg/dl (9-23); CHLORIDE 103 mmol/L (98-107); POTASSIUM 3.6 mmol/L (3.4-5.1); TOTAL PROTEIN 7.7 gm/dL (6.0-8.0)
[2023-03-31 18:26] LABS: SGPT/ALT < 7 U/L (10-49)
[2023-03-31] MEDS ORDERED: MELOXICAM15 MG PO (18:34)
[2023-03-31] MEDS ORDERED: PREDNISONE20 M1 PO (18:34)
== END 2023-03-31 18:41 | disposition home or self-care (01) ==
LOC: ED 16:58
PROVIDERS: Emergency Medicine
DX: M06.9 Rheumatoid arthritis, unspecified (principal); M25.50 Pain in unspecified joint; G43.909 Migraine, unspecified, not intractable, without status migrainosus; Z86.73 Personal history of transient ischemic attack (TIA), and cerebral infarction without residual deficits; Z86.16 Personal history of COVID-19; Z88.8 Allergy status to other drugs, medicaments and biological substances; Z91.041 Radiographic dye allergy status; Z98.51 Tubal ligation status; Z98.890 Other specified postprocedural states; F14.10 Cocaine abuse, uncomplicated; F17.200 Nicotine dependence, unspecified, uncomplicated

== ENCOUNTER 2023-06-02 15:17 | Emergency (ER) | payer OTHER ==
[~2023-06-02] VITALS: Ht 162.5 cm; Wt 65.8 kg
[~2023-06-02 15:17] MED LIST changes: +MELOXICAM15 MG PO
[2023-06-02 15:40] VITALS: BP 145/80
[2023-06-02 16:29] LABS: BASO # 0.1 10*3/uL (0.0-0.1); BASO % 0.6 % (0.0-1.0); EOS # 0.1 10*3/uL (0.0-0.4); EOS % 0.4 % (1.0-4.0); HEMATOCRIT 40.9 % (37.0-47.0); LYMPH # 1.1 10*3/uL (1.3-4.4); LYMPH % 7.8 % (27.0-41.0); MEAN CELL VOLUME 90.7 fl (81.0-99.0); MEAN CORPUSCULAR HGB 29.7 pg (27.0-31.0); MEAN CORPUSCULAR HGB CONC 32.8 g/dl (33.0-37.0); MEAN PLATELET VOLUME 10.3 fl (9.6-12.3); MONO # 0.7 10*3/uL (0.1-1.0); MONO % 4.7 % (3.0-9.0); NEUT # 12.4 10*3/uL (2.3-7.9); NEUT % 86.2 % (47.0-73.0); PLATELET COUNT AUTOMATED 386 10*3/uL (130-400); RED BLOOD COUNT 4.51 10*6/uL (4.10-5.10); RED CELL DISTRI WIDTH 14.1 % (0-14.5); WHITE BLOOD COUNT 14.5 10*3/uL (4.8-10.8)
[2023-06-02 17:02] LABS: ALKALINE PHOSPHATASE 111 U/L (46-116); BUN 18 mg/dl (9-23); CHLORIDE 109 mmol/L (98-107); POTASSIUM 3.4 mmol/L (3.4-5.1); TOTAL PROTEIN 7.3 gm/dL (6.0-8.0)
[2023-06-02 17:07] LABS: SGPT/ALT < 7 U/L (10-49)
[2023-06-02] MEDS ORDERED: PREDNISONE50 MG PO (18:03)
== END 2023-06-02 18:22 | disposition home or self-care (01) ==
LOC: ED 15:17
PROVIDERS: Physician Assistant Medical
DX: M79.642 Pain in left hand (principal); M79.641 Pain in right hand; M25.562 Pain in left knee; M25.561 Pain in right knee; M25.552 Pain in left hip; M25.551 Pain in right hip; G43.909 Migraine, unspecified, not intractable, without status migrainosus; Z86.73 Personal history of transient ischemic attack (TIA), and cerebral infarction without residual deficits; Z86.16 Personal history of COVID-19; Z91.041 Radiographic dye allergy status; Z88.8 Allergy status to other drugs, medicaments and biological substances; Z98.51 Tubal ligation status; Z98.890 Other specified postprocedural states; F14.10 Cocaine abuse, uncomplicated; F17.200 Nicotine dependence, unspecified, uncomplicated

== ENCOUNTER 2023-07-03 17:00 | Emergency (ER) | payer OTHER ==
[~2023-07-03] VITALS: Ht 162.5 cm; Wt 63.5 kg
[2023-07-03 17:14] VITALS: BP 127/78
[2023-07-03 18:20] LABS: MEAN CELL VOLUME 89.9 fl (81.0-99.0); MEAN CORPUSCULAR HGB 29.1 pg (27.0-31.0); MEAN CORPUSCULAR HGB CONC 32.4 g/dl (33.0-37.0); MEAN PLATELET VOLUME 10.7 fl (9.6-12.3); PLATELET COUNT AUTOMATED 359 10*3/uL (130-400); RED BLOOD COUNT 4.67 10*6/uL (4.10-5.10); RED CELL DISTRI WIDTH 13.8 % (0-14.5); WHITE BLOOD COUNT 19.4 10*3/uL (4.8-10.8)
[2023-07-03 18:21] LABS: MANUAL DIFF REFLEX YES
[2023-07-03 18:43] LABS: ALKALINE PHOSPHATASE 151 U/L (46-116); BUN 17 mg/dl (9-23); CHLORIDE 105 mmol/L (98-107); POTASSIUM 2.9 mmol/L (3.4-5.1); SGPT/ALT 8 U/L (10-49); TOTAL PROTEIN 7.4 gm/dL (6.0-8.0)
[2023-07-03 18:48] LABS: BURR CELLS FEW; PLATELET SUFFICIENCY NORMAL (NORMAL); TOTAL CELLS COUNTED 100 #CELLS
[2023-07-03] MEDS ORDERED: MELOXICAM15 MG PO (18:49)
[2023-07-03] MEDS ORDERED: CYCLOBENZAPRINE10 MG PO (18:49)
[2023-07-03 21:15] LABS: URINE AMPHETAMINES Positive (1000ng/ml); URINE BARBITURATES Negative (200ng/ml); URINE BENZODIAZEPINES Negative (200ng/ml); URINE CANNABINOIDS (THC) Negative (50ng/ml); URINE COCAINE Negative (300ng/ml); URINE METHADONE Negative (300ng/ml); URINE OPIATES Negative (300ng/ml); URINE PHENCYCLIDINE Negative (25ng/ml)
== END 2023-07-03 21:39 | disposition home or self-care (01) ==
LOC: ED 17:00
PROVIDERS: Emergency Medicine; Internal Medicine
DX: M54.16 Radiculopathy, lumbar region (principal); R25.1 Tremor, unspecified; F31.9 Bipolar disorder, unspecified; F41.9 Anxiety disorder, unspecified; F17.200 Nicotine dependence, unspecified, uncomplicated; Z98.890 Other specified postprocedural states; Z91.041 Radiographic dye allergy status; Z88.8 Allergy status to other drugs, medicaments and biological substances; Z79.899 Other long term (current) drug therapy; Z98.51 Tubal ligation status

== ENCOUNTER → 2023-07-30 | Outpatient (CLI) | payer OTHER | END | disposition home or self-care (01) | LOC: RAD 15:30 | PROVIDERS: ATTEND Internal Medicine | DX: M16.12 Unilateral primary osteoarthritis, left hip (principal); M85.852 Other specified disorders of bone density and structure, left thigh ==

== ENCOUNTER 2023-09-25 20:43 | Emergency (ER) | payer OTHER ==
[~2023-09-25] VITALS: Ht 162.5 cm; Wt 61.2 kg
[2023-09-25 21:03] VITALS: BP 130/88
[2023-09-25] MEDS ORDERED: PREDNISONE50 MG PO (22:11)
== END 2023-09-25 23:12 | disposition home or self-care (01) ==
LOC: ED 20:43
DX: M06.9 Rheumatoid arthritis, unspecified (principal); G43.909 Migraine, unspecified, not intractable, without status migrainosus; Z86.73 Personal history of transient ischemic attack (TIA), and cerebral infarction without residual deficits; Z91.041 Radiographic dye allergy status; Z88.8 Allergy status to other drugs, medicaments and biological substances; Z98.51 Tubal ligation status; Z98.890 Other specified postprocedural states; F17.200 Nicotine dependence, unspecified, uncomplicated; F14.10 Cocaine abuse, uncomplicated

== ENCOUNTER → 2023-11-13 | Outpatient (CLI) | payer OTHER | END | disposition home or self-care (01) | LOC: RAD 10-30 14:00 | PROVIDERS: ATTEND Orthopaedic Surgery | DX: M81.8 Other osteoporosis without current pathological fracture (principal) ==

== ENCOUNTER 2023-11-15 16:32 | Emergency (ER) | payer OTHER ==
[~2023-11-15] VITALS: Ht 162.5 cm; Wt 61.2 kg
[2023-11-15 16:45] VITALS: BP 157/85
[2023-11-15] MEDS ORDERED: Ketorolac Tromethamine 30 MG/ML VIAL IM ONE (16:55)
[2023-11-15] MEDS ORDERED: predniSONE 20 MG TAB PO ONE (16:55)
== END 2023-11-15 16:58 | disposition home or self-care (01) ==
LOC: ED 16:32
DX: M06.9 Rheumatoid arthritis, unspecified (principal); M25.561 Pain in right knee; F31.9 Bipolar disorder, unspecified; K21.9 Gastro-esophageal reflux disease without esophagitis; F41.9 Anxiety disorder, unspecified; G43.909 Migraine, unspecified, not intractable, without status migrainosus; F17.200 Nicotine dependence, unspecified, uncomplicated; F14.10 Cocaine abuse, uncomplicated; Z91.041 Radiographic dye allergy status; Z88.8 Allergy status to other drugs, medicaments and biological substances; Z98.51 Tubal ligation status; Z98.890 Other specified postprocedural states

== ENCOUNTER → 2023-12-09 | Outpatient (CLI) | payer OTHER ==
[2023-12-09 16:15] LABS: BASO # 0.1 10*3/uL (0.0-0.1); BASO % 0.4 % (0.0-1.0); EOS # 0.2 10*3/uL (0.0-0.4); HEMATOCRIT 45.1 % (37.0-47.0); LYMPH # 3.7 10*3/uL (1.3-4.4); LYMPH % 22.4 % (27.0-41.0); MEAN CELL VOLUME 92.2 fl (81.0-99.0); MEAN CORPUSCULAR HGB 28.4 pg (27.0-31.0); MEAN CORPUSCULAR HGB CONC 30.8 g/dl (33.0-37.0); MEAN PLATELET VOLUME 10.3 fl (9.6-12.3); MONO # 1.1 10*3/uL (0.1-1.0); MONO % 6.6 % (3.0-9.0); NEUT # 11.4 10*3/uL (2.3-7.9); NEUT % 69.1 % (47.0-73.0); PLATELET COUNT AUTOMATED 417 10*3/uL (130-400); RED BLOOD COUNT 4.89 10*6/uL (4.10-5.10); RED CELL DISTRI WIDTH 14.2 % (0-14.5); WHITE BLOOD COUNT 16.5 10*3/uL (4.8-10.8)
[2023-12-09 16:41] LABS: ALKALINE PHOSPHATASE 119 U/L (46-116); BUN 10 mg/dl (9-23); CHLORIDE 104 mmol/L (98-107); FREE T4 1.25 ng/dl (0.89-1.76); POTASSIUM 3.4 mmol/L (3.4-5.1); SGPT/ALT 12 U/L (5-49); TOTAL PROTEIN 7.9 gm/dL (6.0-8.0); URIC ACID 2.9 mg/dL (3.1-7.8)
[2023-12-10 11:08] LABS: ANTI-DSDNA ANTIBODIES <1 IU/mL (0-9)
[2023-12-10 12:08] LABS: CCP ANTIBODIES IGG/IGA >250 units (0-19)
== END ==
LOC: LAB 15:44
PROVIDERS: ATTEND Internal Medicine
DX: R53.83 Other fatigue (principal)

== ENCOUNTER → 2023-12-14 | Outpatient (CLI) | payer OTHER | END | disposition home or self-care (01) | LOC: RAD 00:51 | PROVIDERS: ATTEND Internal Medicine | DX: M16.12 Unilateral primary osteoarthritis, left hip (principal); M25.551 Pain in right hip; Z97.5 Presence of (intrauterine) contraceptive device ==

== ENCOUNTER 2023-12-22 12:11 | Emergency (ER) | payer OTHER ==
[2023-12-22 12:17] VITALS: BP 149/91
[2023-12-22] MEDS ORDERED: PREDNISONE20 M1 PO (12:27)
[2023-12-22] MEDS ORDERED: Ketorolac Tromethamine 30 MG/ML VIAL IM ONE (12:35)
== END 2023-12-22 12:34 | disposition home or self-care (01) ==
LOC: ED 12:11
DX: M79.10 Myalgia, unspecified site (principal); G43.909 Migraine, unspecified, not intractable, without status migrainosus; Z86.73 Personal history of transient ischemic attack (TIA), and cerebral infarction without residual deficits; Z91.041 Radiographic dye allergy status; Z88.8 Allergy status to other drugs, medicaments and biological substances; Z98.51 Tubal ligation status; Z98.890 Other specified postprocedural states; F14.10 Cocaine abuse, uncomplicated; F17.200 Nicotine dependence, unspecified, uncomplicated

== ENCOUNTER → 2024-01-19 | Outpatient (CLI) | payer OTHER ==
[~2024-01-19] MED LIST changes: +METHYLPHENIDATE54 M3 PO; +TERBINAFINE250 MG PO
[2024-01-19 16:09] LABS: BASO # 0.1 10*3/uL (0.0-0.1); BASO % 0.6 % (0.0-1.0); EOS % 0.4 % (1.0-4.0); HEMATOCRIT 44.4 % (37.0-47.0); LYMPH # 2.2 10*3/uL (1.3-4.4); LYMPH % 20.1 % (27.0-41.0); MEAN CELL VOLUME 90.2 fl (81.0-99.0); MEAN CORPUSCULAR HGB 28.5 pg (27.0-31.0); MEAN CORPUSCULAR HGB CONC 31.5 g/dl (33.0-37.0); MEAN PLATELET VOLUME 9.7 fl (9.6-12.3); MONO # 0.7 10*3/uL (0.1-1.0); MONO % 6.1 % (3.0-9.0); NEUT # 7.9 10*3/uL (2.3-7.9); NEUT % 72.5 % (47.0-73.0); PLATELET COUNT AUTOMATED 456 10*3/uL (130-400); RED BLOOD COUNT 4.92 10*6/uL (4.10-5.10); RED CELL DISTRI WIDTH 13.9 % (0-14.5); WHITE BLOOD COUNT 10.9 10*3/uL (4.8-10.8)
[2024-01-19 16:34] LABS: ALKALINE PHOSPHATASE 129 U/L (46-116); BUN < 5 mg/dl (9-23); CHLORIDE 104 mmol/L (98-107); FREE T4 1.14 ng/dl (0.89-1.76); POTASSIUM 3.5 mmol/L (3.4-5.1); SGPT/ALT 14 U/L (5-49); TOTAL PROTEIN 7.7 gm/dL (6.0-8.0)
== END | disposition home or self-care (01) ==
LOC: LAB 15:46
PROVIDERS: ATTEND Internal Medicine
DX: R25.2 Cramp and spasm (principal)

== ENCOUNTER → 2024-02-10 | Outpatient (CLI) | payer OTHER | END | disposition home or self-care (01) | LOC: LAB 08:28 | PROVIDERS: ATTEND Internal Medicine | DX: D50.9 Iron deficiency anemia, unspecified (principal); R19.7 Diarrhea, unspecified ==

== ENCOUNTER → 2024-02-12 | Outpatient (CLI) | payer OTHER | END | disposition home or self-care (01) | LOC: ORTHO 03:08 | PROVIDERS: ATTEND Orthopaedic Surgery | DX: Z47.1 Aftercare following joint replacement surgery (principal); Z96.642 Presence of left artificial hip joint ==

== ENCOUNTER 2024-02-29 14:55 | Emergency (ER) | payer OTHER ==
[~2024-02-29] VITALS: Wt 65.8 kg
[2024-02-29] MEDS ORDERED: Ketorolac Tromethamine 15 MG/ML VIAL IV ONE (15:05)
[2024-02-29 15:18] LABS: BASO # 0.1 10*3/uL (0.0-0.1); BASO % 0.7 % (0.0-1.0); HEMATOCRIT 37.1 % (37.0-47.0); LYMPH # 1.8 10*3/uL (1.3-4.4); LYMPH % 14.7 % (27.0-41.0); MEAN CELL VOLUME 91.6 fl (81.0-99.0); MEAN CORPUSCULAR HGB 29.4 pg (27.0-31.0); MEAN CORPUSCULAR HGB CONC 32.1 g/dl (33.0-37.0); MEAN PLATELET VOLUME 9.3 fl (9.6-12.3); MONO # 0.6 10*3/uL (0.1-1.0); MONO % 5.1 % (3.0-9.0); NEUT # 9.6 10*3/uL (2.3-7.9); NEUT % 78.8 % (47.0-73.0); PLATELET COUNT AUTOMATED 512 10*3/uL (130-400); RED BLOOD COUNT 4.05 10*6/uL (4.10-5.10); RED CELL DISTRI WIDTH 14.3 % (0-14.5); WHITE BLOOD COUNT 12.2 10*3/uL (4.8-10.8)
[2024-02-29 15:29] LABS: ACT PARTIAL THROMBO TIME 25.1 SECONDS (20.0-32.1)
[2024-02-29 15:34] LABS: ALKALINE PHOSPHATASE 111 U/L (46-116); BUN 10 mg/dl (9-23); CHLORIDE 104 mmol/L (98-107); POTASSIUM 3.6 mmol/L (3.4-5.1); SGPT/ALT < 7 U/L (5-49)
[2024-02-29] MEDS ORDERED: Ketamine Hydrochloride 500 MG/10 ML VIAL IV ONE (16:30)
[2024-02-29] MEDS ORDERED: PROPOFOL 500 MG/50 ML VIAL IV ONE (17:10)
[2024-02-29 17:35] VITALS: BP 120/72
== END 2024-02-29 19:08 | disposition home or self-care (01) ==
LOC: ED 14:55
PROVIDERS: Internal Medicine
DX: S73.005A Unspecified dislocation of left hip, initial encounter (principal); M19.90 Unspecified osteoarthritis, unspecified site; G43.909 Migraine, unspecified, not intractable, without status migrainosus; Z86.73 Personal history of transient ischemic attack (TIA), and cerebral infarction without residual deficits; F17.200 Nicotine dependence, unspecified, uncomplicated; F14.10 Cocaine abuse, uncomplicated; Z91.041 Radiographic dye allergy status; Z88.8 Allergy status to other drugs, medicaments and biological substances; Z98.51 Tubal ligation status; Z98.890 Other specified postprocedural states; X58.XXXA Exposure to other specified factors, initial encounter; Y93.89 Activity, other specified; Y92.89 Other specified places as the place of occurrence of the external cause; Y99.8 Other external cause status

== ENCOUNTER → 2024-03-11 | Outpatient (CLI) | payer OTHER | END | disposition home or self-care (01) | LOC: ORTHO 04:32 | PROVIDERS: ATTEND Orthopaedic Surgery | DX: Z47.1 Aftercare following joint replacement surgery (principal) ==

== ENCOUNTER 2024-03-17 15:46 | Emergency (ER) | payer OTHER ==
[~2024-03-17] VITALS: Ht 165.1 cm; Wt 72.6 kg
[2024-03-17 16:13] VITALS: BP 134/80
[2024-03-17] MEDS ORDERED: PREDNISONE50 MG PO (16:16)
[2024-03-17] MEDS ORDERED: MELOXICAM15 MG PO (16:16)
[2024-03-17] MEDS ORDERED: predniSONE 20 MG TAB PO ONE (16:20)
[2024-03-17] MEDS ORDERED: Ketorolac Tromethamine 30 MG/ML VIAL IM ONE (16:20)
== END 2024-03-17 16:33 | disposition home or self-care (01) ==
LOC: ED 15:46
DX: D89.89 Other specified disorders involving the immune mechanism, not elsewhere classified (principal); M19.90 Unspecified osteoarthritis, unspecified site; G43.909 Migraine, unspecified, not intractable, without status migrainosus; Z86.73 Personal history of transient ischemic attack (TIA), and cerebral infarction without residual deficits; F15.10 Other stimulant abuse, uncomplicated; F14.10 Cocaine abuse, uncomplicated; F17.200 Nicotine dependence, unspecified, uncomplicated; Z91.041 Radiographic dye allergy status; Z88.8 Allergy status to other drugs, medicaments and biological substances; Z98.51 Tubal ligation status; Z98.890 Other specified postprocedural states

== ENCOUNTER 2024-03-19 11:08 | Emergency (ER) | payer OTHER ==
[~2024-03-19] VITALS: Wt 66.2 kg
[2024-03-19] MEDS ORDERED: Ondansetron Hydrochloride 4 MG/2 ML VIAL IV ONE (11:15)
[2024-03-19] MEDS ORDERED: HYDROmorphONE Hydrochloride 1 MG/ML SYR IV ONE (11:15)
[2024-03-19] MEDS ORDERED: SODIUM CHLORIDE 0.9% 1,000 ML IV ONE (11:15)
[2024-03-19] MEDS ORDERED: PROPOFOL 200 MG/20 ML VIAL IV ONE (11:17)
[2024-03-19 11:52] LABS: HEMATOCRIT 34.4 % (37.0-47.0); MEAN CORPUSCULAR HGB 29.7 pg (27.0-31.0); MEAN PLATELET VOLUME 9.4 fl (9.6-12.3); PLATELET COUNT AUTOMATED 454 10*3/uL (130-400); RED CELL DISTRI WIDTH 13.5 % (0-14.5); WHITE BLOOD COUNT 15.2 10*3/uL (4.8-10.8)
[2024-03-19 12:01] LABS: MANUAL DIFF REFLEX YES
[2024-03-19 12:08] LABS: ALKALINE PHOSPHATASE 106 U/L (46-116); BUN 12 mg/dl (9-23); CHLORIDE 108 mmol/L (98-107); POTASSIUM 3.5 mmol/L (3.4-5.1)
[2024-03-19 12:12] LABS: ACT PARTIAL THROMBO TIME 25.4 SECONDS (20.0-32.1)
[2024-03-19 12:17] LABS: SGPT/ALT < 7 U/L (5-49)
[2024-03-19 12:21] LABS: PLATELET SUFFICIENCY HIGH (NORMAL); TOTAL CELLS COUNTED 100 #CELLS
[2024-03-19 14:25] VITALS: BP 146/88
== END 2024-03-19 14:22 | disposition home or self-care (01) ==
LOC: ED 11:08
PROVIDERS: Emergency Medicine
DX: S73.005A Unspecified dislocation of left hip, initial encounter (principal); M19.90 Unspecified osteoarthritis, unspecified site; G43.909 Migraine, unspecified, not intractable, without status migrainosus; F17.200 Nicotine dependence, unspecified, uncomplicated; F14.10 Cocaine abuse, uncomplicated; Z91.041 Radiographic dye allergy status; Z88.8 Allergy status to other drugs, medicaments and biological substances; Z79.899 Other long term (current) drug therapy; Z98.890 Other specified postprocedural states; Z98.51 Tubal ligation status; Z96.642 Presence of left artificial hip joint; X58.XXXA Exposure to other specified factors, initial encounter; Y93.89 Activity, other specified; Y92.009 Unspecified place in unspecified non-institutional (private) residence as the place of occurrence of the external cause; Y99.8 Other external cause status

== ENCOUNTER 2024-03-24 09:33 | Emergency (ER) | payer OTHER ==
[~2024-03-24] VITALS: Ht 162.5 cm; Wt 65.8 kg
[2024-03-24 09:40] VITALS: BP 188/77
[2024-03-24] MEDS ORDERED: VIBRAMYCIN100 MG PO (10:53)
[2024-03-24] MEDS ORDERED: CEPHALEXIN500 M1 PO (10:53)
[2024-03-24] MEDS ORDERED: Bactroban Oint22 GM T (10:53)
== END 2024-03-24 11:07 | disposition home or self-care (01) ==
LOC: ED 09:33
DX: S61.401A Unspecified open wound of right hand, initial encounter (principal); M19.90 Unspecified osteoarthritis, unspecified site; G43.909 Migraine, unspecified, not intractable, without status migrainosus; Z86.73 Personal history of transient ischemic attack (TIA), and cerebral infarction without residual deficits; F14.10 Cocaine abuse, uncomplicated; F17.200 Nicotine dependence, unspecified, uncomplicated; Z91.041 Radiographic dye allergy status; Z88.8 Allergy status to other drugs, medicaments and biological substances; Z98.890 Other specified postprocedural states; Z98.51 Tubal ligation status; W22.8XXA Striking against or struck by other objects, initial encounter; Y93.89 Activity, other specified; Y92.89 Other specified places as the place of occurrence of the external cause; Y99.8 Other external cause status

== ENCOUNTER 2024-04-13 17:45 | Emergency (ER) | payer OTHER ==
[~2024-04-13] VITALS: Ht 162.5 cm; Wt 68.0 kg
[~2024-04-13 17:45] MED LIST changes: +CEPHALEXIN500 M1 PO
[2024-04-13 17:53] VITALS: BP 143/83
[2024-04-13] MEDS ORDERED: Ketorolac Tromethamine 60 MG/2 ML VIAL IM ONE (18:45)
[2024-04-13 19:02] LABS: BASO # 0.1 10*3/uL (0.0-0.1); BASO % 0.7 % (0.0-1.0); EOS # 0.4 10*3/uL (0.0-0.4); EOS % 4.2 % (1.0-4.0); HEMATOCRIT 40.4 % (37.0-47.0); LYMPH # 2.2 10*3/uL (1.3-4.4); LYMPH % 24.7 % (27.0-41.0); MEAN CELL VOLUME 92.9 fl (81.0-99.0); MEAN CORPUSCULAR HGB 29.4 pg (27.0-31.0); MEAN CORPUSCULAR HGB CONC 31.7 g/dl (33.0-37.0); MEAN PLATELET VOLUME 9.6 fl (9.6-12.3); MONO # 0.9 10*3/uL (0.1-1.0); NEUT # 5.3 10*3/uL (2.3-7.9); NEUT % 59.9 % (47.0-73.0); PLATELET COUNT AUTOMATED 405 10*3/uL (130-400); RED BLOOD COUNT 4.35 10*6/uL (4.10-5.10); RED CELL DISTRI WIDTH 13.2 % (0-14.5); WHITE BLOOD COUNT 8.8 10*3/uL (4.8-10.8)
[2024-04-13 19:22] LABS: BUN 10 mg/dl (9-23); CHLORIDE 104 mmol/L (98-107); POTASSIUM 3.9 mmol/L (3.4-5.1); URIC ACID 4.3 mg/dL (3.1-7.8)
[2024-04-13] MEDS ORDERED: PREDNISONE20 M1 PO (20:41)
[2024-04-13] MEDS ORDERED: Dexamethasone Sodium Phospha 20 MG/5 ML VIAL IM ONE (20:45)
== END 2024-04-13 21:06 | disposition home or self-care (01) ==
LOC: ED 17:45
PROVIDERS: Nurse Practitioner Family
DX: M19.041 Primary osteoarthritis, right hand (principal); M81.0 Age-related osteoporosis without current pathological fracture; F41.9 Anxiety disorder, unspecified; F31.9 Bipolar disorder, unspecified; K21.9 Gastro-esophageal reflux disease without esophagitis; F17.200 Nicotine dependence, unspecified, uncomplicated; Z91.041 Radiographic dye allergy status; Z88.8 Allergy status to other drugs, medicaments and biological substances; Z79.899 Other long term (current) drug therapy; Z79.2 Long term (current) use of antibiotics; Z86.14 Personal history of Methicillin resistant Staphylococcus aureus infection; Z98.51 Tubal ligation status; Z96.642 Presence of left artificial hip joint; Z98.890 Other specified postprocedural states

== ENCOUNTER → 2024-05-24 | Outpatient (CLI) | payer OTHER ==
[~2024-05-24] MED LIST changes: +ABILIFY5 MG PO; +CEFDINIR300 MG PO; +DULOXETINE HCL60 MG PO; +SUBOXONE 8 MG-1 EACH BC
== END | disposition home or self-care (01) ==
LOC: RAD 16:05
PROVIDERS: ATTEND Internal Medicine
DX: J98.4 Other disorders of lung (principal); R06.02 Shortness of breath

== ENCOUNTER 2024-05-27 19:36 | Inpatient (IN) | payer OTHER ==
[~2024-05-27] VITALS: Ht 162.5 cm; Wt 72.3 kg
[~2024-05-27 19:36] MED LIST changes: -ABILIFY5 MG PO; -CEFDINIR300 MG PO; -DULOXETINE HCL60 MG PO; -SUBOXONE 8 MG-1 EACH BC
[2024-05-27 19:45] VITALS: BP 155/87
[2024-05-27 20:14] LABS: BASO # 0.1 10*3/uL (0.0-0.1); BASO % 0.6 % (0.0-1.0); EOS % 0.2 % (1.0-4.0); HEMATOCRIT 44.3 % (37.0-47.0); LYMPH % 15.9 % (27.0-41.0); MEAN CELL VOLUME 92.9 fl (81.0-99.0); MEAN CORPUSCULAR HGB 29.1 pg (27.0-31.0); MEAN CORPUSCULAR HGB CONC 31.4 g/dl (33.0-37.0); MEAN PLATELET VOLUME 9.2 fl (9.6-12.3); MONO # 0.7 10*3/uL (0.1-1.0); MONO % 5.4 % (3.0-9.0); NEUT # 9.8 10*3/uL (2.3-7.9); NEUT % 77.2 % (47.0-73.0); PLATELET COUNT AUTOMATED 468 10*3/uL (130-400); RED BLOOD COUNT 4.77 10*6/uL (4.10-5.10); RED CELL DISTRI WIDTH 13.8 % (0-14.5); WHITE BLOOD COUNT 12.7 10*3/uL (4.8-10.8)
[2024-05-27] MEDS ORDERED: DULOXETINE HCL60 MG PO (20:22)
[2024-05-27] MEDS ORDERED: FEROSUL325 M1 PO (20:22)
[2024-05-27] MEDS ORDERED: ABILIFY5 MG PO (20:23)
[2024-05-27] MEDS ORDERED: METHOTREXATE S2.5 M1 PO (20:25)
[2024-05-27 20:30] LABS: ALKALINE PHOSPHATASE 118 U/L (46-116); BUN 7 mg/dl (9-23); CHLORIDE 107 mmol/L (98-107); POTASSIUM 3.7 mmol/L (3.4-5.1); SGPT/ALT < 7 U/L (5-49); TOTAL PROTEIN 7.3 gm/dL (6.0-8.0)
[2024-05-27] MEDS ORDERED: Vancomycin Hydrochloride 250 ML IV ONE (20:35)
[2024-05-27] MEDS ORDERED: Piperacillin Sodium/Tazobact 50 ML IV ONE (20:35)
[2024-05-27] MEDS ORDERED: SODIUM CHLORIDE 0.9% 1,000 ML IV SCH (20:40)
[2024-05-28 02:29] VITALS: BP 179/90
[2024-05-28] MEDS ORDERED: OMEPRAZOLE 20 MG CAP PO SCH (06:00)
[2024-05-28 06:24] VITALS: BP 141/64
[2024-05-28] MEDS ORDERED: GABAPENTIN 800 MG TAB PO SCH (10:00)
[2024-05-28] MEDS ORDERED: Duloxetine Hydrochloride 60 MG CAP PO SCH (10:00)
[2024-05-28] MEDS ORDERED: FOLIC ACID 0.4 MG TAB PO SCH (10:00)
[2024-05-28] MEDS ORDERED: ARIPiprazole 5 MG TAB PO SCH (10:00)
[2024-05-28] MEDS ORDERED: BACLOFEN 10 MG TAB PO SCH (10:00)
[2024-05-28] MEDS ORDERED: Vancomycin Hydrochloride 250 ML IV SCH (10:00)
[2024-05-28] MEDS ORDERED: Hydroxychloroquine Sulfate 200 MG TAB PO SCH (10:00)
[2024-05-28] MEDS ORDERED: Piperacillin Sodium/Tazobact 50 ML IV SCH ×2 (10:00→12:00)
[2024-05-28] MEDS ORDERED: SUBOXONE 8 MG-1 EACH BC (13:49)
[2024-05-28] MEDS ORDERED: BUPRENORPHINE HCL/NALOXONE 8 MG-2 MG SL TABLET SL SCH (14:08)
[2024-05-28 19:50] VITALS: BP 141/64
[2024-05-28 20:00] VITALS: BP 134/70; BP 141/64
[2024-05-28] MEDS ORDERED: Nicotine 21 MG PATCH T SCH (22:00)
[2024-05-28] MEDS ORDERED: Doxycycline Hyclate 100 MG CAP PO SCH (22:00)
[2024-05-28] MEDS ORDERED: Ketorolac Tromethamine 30 MG/ML VIAL IV ONE (23:00)
[2024-05-29] VITALS: BP 139/76
[2024-05-29 06:11] LABS: BASO # 0.1 10*3/uL (0.0-0.1); BASO % 0.7 % (0.0-1.0); HEMATOCRIT 36.8 % (37.0-47.0); LYMPH % 35.1 % (27.0-41.0); MEAN CORPUSCULAR HGB 28.9 pg (27.0-31.0); MEAN CORPUSCULAR HGB CONC 32.1 g/dl (33.0-37.0); MEAN PLATELET VOLUME 10.1 fl (9.6-12.3); MONO # 0.6 10*3/uL (0.1-1.0); MONO % 7.4 % (3.0-9.0); NEUT # 4.8 10*3/uL (2.3-7.9); NEUT % 56.1 % (47.0-73.0); PLATELET COUNT AUTOMATED 403 10*3/uL (130-400); RED BLOOD COUNT 4.09 10*6/uL (4.10-5.10); RED CELL DISTRI WIDTH 14.2 % (0-14.5); WHITE BLOOD COUNT 8.5 10*3/uL (4.8-10.8)
[2024-05-29 06:33] LABS: ALKALINE PHOSPHATASE 95 U/L (46-116); BUN 10 mg/dl (9-23); CHLORIDE 108 mmol/L (98-107); POTASSIUM 3.4 mmol/L (3.4-5.1); TOTAL PROTEIN 5.7 gm/dL (6.0-8.0)
[2024-05-29 06:34] LABS: SGPT/ALT < 7 U/L (5-49)
[2024-05-29 08:00] VITALS: BP 148/91
[2024-05-29] MEDS ORDERED: Vancomycin Hydrochloride 1,000 MG/250 ML BAG IV ONE (08:25)
[2024-05-29 12:00] VITALS: BP 125/94
[2024-05-29 14:44] LABS: BILIRUBIN Negative (Negative); BLOOD Negative (Negative); CLARITY Cloudy (Clear); COLOR Yellow (Yellow); GLUCOSE Negative (Negative); KETONE Negative (Negative); LEUKO ESTERASE 1+ (Negative); NITRITE Negative (Negative); PH 6.5 (4.5-8.0); UROBILINOGEN 0.2 E.U./dl (0.0-1.0)
[2024-05-29 14:50] LABS: EPITHELIAL CELLS 21-30
[2024-05-29 14:51] LABS: WBC 21-30 wbc/hpf (0-5); YEAST 1+
[2024-05-29 16:00] VITALS: BP 135/76
[2024-05-29] MEDS ORDERED: VIBRAMYCIN100 MG PO (18:09)
[2024-05-29] MEDS ORDERED: CEFDINIR300 MG PO (18:09)
[2024-05-29 20:00] VITALS: BP 130/68
[2024-05-30] VITALS: BP 128/62
[2024-05-30] MEDS ORDERED: CLOTRIMAZOLE 45 GM TUBE V SCH (10:00)
[2024-05-30 12:00] VITALS: BP 149/83
== END 2024-05-30 13:30 | disposition home or self-care (01) | DRG 720 ==
LOC: ED 19:36 → EDHOLD 22:01 → 4E 22:01
PROVIDERS: Internal Medicine; Internal Medicine Infectious Disease; ADMIT Internal Medicine; ATTEND Internal Medicine
DX: A41.9 Sepsis, unspecified organism (principal); E44.0 Moderate protein-calorie malnutrition; J15.9 Unspecified bacterial pneumonia; D84.821 Immunodeficiency due to drugs; T38.0X5A Adverse effect of glucocorticoids and synthetic analogues, initial encounter; M06.9 Rheumatoid arthritis, unspecified; M81.0 Age-related osteoporosis without current pathological fracture; K21.9 Gastro-esophageal reflux disease without esophagitis; E55.9 Vitamin D deficiency, unspecified; F32.A Depression, unspecified; F41.9 Anxiety disorder, unspecified; G89.29 Other chronic pain; N39.0 Urinary tract infection, site not specified; Z96.642 Presence of left artificial hip joint; Z88.8 Allergy status to other drugs, medicaments and biological substances; Z91.041 Radiographic dye allergy status; Z82.49 Family history of ischemic heart disease and other diseases of the circulatory system; Z83.3 Family history of diabetes mellitus; Z83.6 Family history of other diseases of the respiratory system; Z79.899 Other long term (current) drug therapy; Z79.01 Long term (current) use of anticoagulants; Z79.52 Long term (current) use of systemic steroids; Z68.27 Body mass index [BMI] 27.0-27.9, adult; Y92.89 Other specified places as the place of occurrence of the external cause

== ENCOUNTER → 2024-06-06 | Outpatient (CLI) | payer OTHER ==
[~2024-06-06] MED LIST changes: +ABILIFY5 MG PO; +CEFDINIR300 MG PO; +DULOXETINE HCL60 MG PO; +SUBOXONE 8 MG-1 EACH BC
[2024-06-06 12:44] LABS: BASO # 0.1 10*3/uL (0.0-0.1); BASO % 0.7 % (0.0-1.0); EOS # 0.1 10*3/uL (0.0-0.4); EOS % 0.8 % (1.0-4.0); HEMATOCRIT 45.1 % (37.0-47.0); LYMPH # 2.9 10*3/uL (1.3-4.4); LYMPH % 25.2 % (27.0-41.0); MEAN CORPUSCULAR HGB 29.3 pg (27.0-31.0); MEAN CORPUSCULAR HGB CONC 31.5 g/dl (33.0-37.0); MEAN PLATELET VOLUME 10.3 fl (9.6-12.3); MONO # 0.8 10*3/uL (0.1-1.0); MONO % 6.7 % (3.0-9.0); NEUT # 7.4 10*3/uL (2.3-7.9); NEUT % 65.8 % (47.0-73.0); PLATELET COUNT AUTOMATED 449 10*3/uL (130-400); RED BLOOD COUNT 4.85 10*6/uL (4.10-5.10); RED CELL DISTRI WIDTH 14.5 % (0-14.5); WHITE BLOOD COUNT 11.3 10*3/uL (4.8-10.8)
[2024-06-06 13:07] LABS: ALKALINE PHOSPHATASE 131 U/L (46-116); BUN 7 mg/dl (9-23); CHLORIDE 105 mmol/L (98-107); POTASSIUM 3.7 mmol/L (3.4-5.1); SGPT/ALT 7 U/L (5-49); TOTAL PROTEIN 7.1 gm/dL (6.0-8.0)
== END | disposition home or self-care (01) ==
LOC: LAB 12:09
PROVIDERS: ATTEND Internal Medicine Infectious Disease
DX: R91.8 Other nonspecific abnormal finding of lung field (principal); J18.9 Pneumonia, unspecified organism; B37.49 Other urogenital candidiasis

== ENCOUNTER 2024-06-21 16:06 | Emergency (ER) | payer OTHER ==
[~2024-06-21] VITALS: Ht 162.5 cm; Wt 65.8 kg
[2024-06-21 16:12] VITALS: BP 150/89
[2024-06-21] MEDS ORDERED: Dexamethasone Sodium Phospha 20 MG/5 ML VIAL IM ONE (16:25)
[2024-06-21] MEDS ORDERED: PREDNISONE20 M1 PO (16:29)
== END 2024-06-21 16:36 | disposition home or self-care (01) ==
LOC: ED 16:06
DX: M06.9 Rheumatoid arthritis, unspecified (principal); G43.909 Migraine, unspecified, not intractable, without status migrainosus; F14.10 Cocaine abuse, uncomplicated; F17.200 Nicotine dependence, unspecified, uncomplicated; Z91.041 Radiographic dye allergy status; Z88.8 Allergy status to other drugs, medicaments and biological substances; Z98.890 Other specified postprocedural states; Z98.51 Tubal ligation status

== ENCOUNTER 2024-09-15 17:36 | Emergency (ER) | payer OTHER ==
[~2024-09-15] VITALS: Ht 160 cm; Wt 68.0 kg
[2024-09-15 17:45] VITALS: BP 149/90
[2024-09-15] MEDS ORDERED: Sulfamethoxazole/Trimethopri 1 TAB TAB PO ONE (18:00)
[2024-09-15] MEDS ORDERED: Bacitracin Zinc/Neomycin/Pol 15 GM TUBE T ONE (18:00)
[2024-09-15] MEDS ORDERED: SEPTDS PO (18:05)
== END 2024-09-15 18:08 | disposition home or self-care (01) ==
LOC: ED 17:36
DX: L03.113 Cellulitis of right upper limb (principal); M06.9 Rheumatoid arthritis, unspecified; F31.9 Bipolar disorder, unspecified; F41.9 Anxiety disorder, unspecified; F19.10 Other psychoactive substance abuse, uncomplicated; M19.90 Unspecified osteoarthritis, unspecified site; G43.909 Migraine, unspecified, not intractable, without status migrainosus; Z86.73 Personal history of transient ischemic attack (TIA), and cerebral infarction without residual deficits; F15.10 Other stimulant abuse, uncomplicated; F14.10 Cocaine abuse, uncomplicated; F17.200 Nicotine dependence, unspecified, uncomplicated; Z88.8 Allergy status to other drugs, medicaments and biological substances; Z91.041 Radiographic dye allergy status; Z98.890 Other specified postprocedural states; Z98.51 Tubal ligation status

== ENCOUNTER 2024-09-19 21:49 | Emergency (ER) | payer OTHER ==
[~2024-09-19] VITALS: Wt 68.0 kg
[2024-09-19 22:27] VITALS: BP 165/95
[2024-09-20 00:05] LABS: BASO # 0.1 10*3/uL (0.0-0.1); BASO % 0.6 % (0.0-1.0); EOS # 0.1 10*3/uL (0.0-0.4); EOS % 0.4 % (1.0-4.0); HEMATOCRIT 43.4 % (37.0-47.0); MEAN CELL VOLUME 91.9 fl (81.0-99.0); MEAN CORPUSCULAR HGB 29.4 pg (27.0-31.0); MEAN PLATELET VOLUME 9.9 fl (9.6-12.3); MONO # 0.9 10*3/uL (0.1-1.0); MONO % 7.3 % (3.0-9.0); NEUT # 8.5 10*3/uL (2.3-7.9); NEUT % 68.7 % (47.0-73.0); PLATELET COUNT AUTOMATED 504 10*3/uL (130-400); RED BLOOD COUNT 4.72 10*6/uL (4.10-5.10); RED CELL DISTRI WIDTH 13.5 % (0-14.5); WHITE BLOOD COUNT 12.3 10*3/uL (4.8-10.8)
[2024-09-20 00:41] LABS: BUN 10 mg/dl (9-23); CHLORIDE 105 mmol/L (98-107); POTASSIUM 3.5 mmol/L (3.4-5.1)
[2024-09-20] MEDS ORDERED: SEPTDS PO (03:27)
== END 2024-09-20 03:49 | disposition home or self-care (01) ==
LOC: ED 21:49
PROVIDERS: Internal Medicine
DX: L03.115 Cellulitis of right lower limb (principal); F17.200 Nicotine dependence, unspecified, uncomplicated; Z91.041 Radiographic dye allergy status; Z88.8 Allergy status to other drugs, medicaments and biological substances; Z79.2 Long term (current) use of antibiotics; Z79.899 Other long term (current) drug therapy; Z96.642 Presence of left artificial hip joint; Z98.51 Tubal ligation status; Z98.890 Other specified postprocedural states

== ENCOUNTER → 2024-10-11 | Outpatient (CLI) | payer OTHER | END | disposition home or self-care (01) | LOC: RAD 17:00 | PROVIDERS: ATTEND Internal Medicine | DX: M19.032 Primary osteoarthritis, left wrist (principal); M54.2 Cervicalgia; M25.532 Pain in left wrist; M79.89 Other specified soft tissue disorders ==

== ENCOUNTER 2024-10-31 17:24 | Emergency (ER) | payer OTHER ==
[~2024-10-31] VITALS: Ht 162.5 cm; Wt 65.3 kg
[2024-10-31 17:55] VITALS: BP 118/74
[2024-10-31] MEDS ORDERED: methylPREDNISolone sod succ 125 MG VIAL IM ONE (19:05)
[2024-10-31] MEDS ORDERED: Ketorolac Tromethamine 30 MG/ML VIAL IM ONE (19:05)
== END 2024-10-31 19:27 | disposition home or self-care (01) ==
LOC: ED 17:24
DX: G89.29 Other chronic pain (principal); M79.641 Pain in right hand; M79.642 Pain in left hand; M79.89 Other specified soft tissue disorders; F41.9 Anxiety disorder, unspecified; F31.9 Bipolar disorder, unspecified; F14.10 Cocaine abuse, uncomplicated; K21.9 Gastro-esophageal reflux disease without esophagitis; M19.90 Unspecified osteoarthritis, unspecified site; G43.909 Migraine, unspecified, not intractable, without status migrainosus; Z86.73 Personal history of transient ischemic attack (TIA), and cerebral infarction without residual deficits; F17.200 Nicotine dependence, unspecified, uncomplicated; Z91.041 Radiographic dye allergy status; Z88.8 Allergy status to other drugs, medicaments and biological substances; Z98.51 Tubal ligation status; Z98.890 Other specified postprocedural states

== ENCOUNTER → 2024-11-04 | Outpatient (CLI) | payer OTHER | END | disposition short-term general hospital (02) | LOC: ORTHO 01:02 | PROVIDERS: ATTEND Orthopaedic Surgery | DX: M25.552 Pain in left hip (principal); Z96.642 Presence of left artificial hip joint ==

== ENCOUNTER 2024-12-09 19:38 | Emergency (ER) | payer OTHER ==
[~2024-12-09] VITALS: Wt 68.0 kg
[2024-12-09 20:01] VITALS: BP 152/106
[2024-12-09] MEDS ORDERED: Ketorolac Tromethamine 60 MG/2 ML VIAL IM ONE (20:40)
[2024-12-09] MEDS ORDERED: methylPREDNISolone sod succ 125 MG VIAL IM ONE (20:40)
[2024-12-09] MEDS ORDERED: PREDNISONE20 M1 PO (20:46)
[2024-12-09] MEDS ORDERED: ANTIFUNGAL113 GM T (20:46)
== END 2024-12-09 20:56 | disposition home or self-care (01) ==
LOC: ED 19:38
DX: M06.9 Rheumatoid arthritis, unspecified (principal); B49 Unspecified mycosis

== ENCOUNTER 2024-12-21 07:48 | Observation (INO) | payer OTHER ==
[~2024-12-21] VITALS: Ht 160 cm; Wt 62.1 kg
[~2024-12-21 07:48] MED LIST changes: +ANTIFUNGAL113 GM T
[2024-12-21 07:56] VITALS: BP 155/89
[2024-12-21] MEDS ORDERED: Ondansetron Hydrochloride 4 MG/2 ML VIAL IV ONE (08:05)
[2024-12-21] MEDS ORDERED: MORPHINE Sulfate 2 MG/ML SYR IV ONE (08:05)
[2024-12-21] MEDS ORDERED: SODIUM CHLORIDE 0.9% 1,000 ML IV ONE (08:05)
[2024-12-21 08:23] LABS: BASO # 0.1 10*3/uL (0.0-0.1); BASO % 0.7 % (0.0-1.0); EOS # 0.1 10*3/uL (0.0-0.4); EOS % 1.1 % (1.0-4.0); HEMATOCRIT 44.8 % (37.0-47.0); MEAN CELL VOLUME 89.2 fl (81.0-99.0); MEAN CORPUSCULAR HGB 28.7 pg (27.0-31.0); MEAN CORPUSCULAR HGB CONC 32.1 g/dl (33.0-37.0); MEAN PLATELET VOLUME 9.8 fl (9.6-12.3); MONO # 0.8 10*3/uL (0.1-1.0); MONO % 6.6 % (3.0-9.0); NEUT # 7.5 10*3/uL (2.3-7.9); NEUT % 61.4 % (47.0-73.0); PLATELET COUNT AUTOMATED 393 10*3/uL (130-400); RED BLOOD COUNT 5.02 10*6/uL (4.10-5.10); RED CELL DISTRI WIDTH 14.1 % (0-14.5); WHITE BLOOD COUNT 12.1 10*3/uL (4.8-10.8)
[2024-12-21 08:51] LABS: BUN 9 mg/dl (9-23); CHLORIDE 104 mmol/L (98-107); POTASSIUM 3.8 mmol/L (3.4-5.1)
[2024-12-21 08:51] LABS: URINE AMPHETAMINES Negative (1000ng/ml); URINE BARBITURATES Negative (200ng/ml); URINE BENZODIAZEPINES Negative (200ng/ml); URINE CANNABINOIDS (THC) Negative (50ng/ml); URINE COCAINE Negative (300ng/ml); URINE METHADONE Negative (300ng/ml); URINE OPIATES Negative (300ng/ml); URINE PHENCYCLIDINE Negative (25ng/ml)
[2024-12-21 09:14] VITALS: BP 132/82
[2024-12-21] MEDS ORDERED: Technetium Tc 99M Tetrofosmi 0.23 MG KIT IJ SCH (11:20)
[2024-12-21 11:55] VITALS: BP 140/77
[2024-12-21] MEDS ORDERED: LORazepam 1 MG TAB PO PRN (13:45)
[2024-12-21] MEDS ORDERED: GABAPENTIN 800 MG TAB PO SCH (14:00)
[2024-12-21 16:00] VITALS: BP 127/81
[2024-12-21] MEDS ORDERED: BUPRENORPHINE HCL/NALOXONE 8 MG-2 MG SL TABLET SL SCH (18:00)
[2024-12-21] MEDS ORDERED: predniSONE 20 MG TAB PO SCH (18:00)
[2024-12-21 20:00] VITALS: BP 127/75
[2024-12-21] MEDS ORDERED: CLOTRIMAZOLE 15 GM TUBE T SCH (22:00)
[2024-12-21] MEDS ORDERED: traZODone Hydrochloride 50 MG TAB PO SCH (22:00)
[2024-12-21] MEDS ORDERED: HYDROCORTISONE 1% CREAM 14.2 GM TUBE T SCH (22:00)
[2024-12-22] VITALS: BP 137/79
[2024-12-22] MEDS ORDERED: FOLIC ACID 0.4 MG TAB PO SCH (10:00)
[2024-12-22] MEDS ORDERED: ARIPiprazole 5 MG TAB PO SCH (10:00)
[2024-12-22] MEDS ORDERED: DULoxetine Hydrochloride 60 MG CAP PO SCH (10:00)
[2024-12-22] MEDS ORDERED: ASPIRIN ENTERIC COATED 81 MG TAB PO SCH (10:00)
[2024-12-22] MEDS ORDERED: Enoxaparin Sodium 40 MG/0.4 ML SYR SC SCH (10:00)
[2024-12-22] MEDS ORDERED: OMEPRAZOLE 20 MG CAP PO SCH (10:00)
[2024-12-22] MEDS ORDERED: Hydroxychloroquine Sulfate 200 MG TAB PO SCH (10:00)
[2024-12-23] MEDS ORDERED: FERROUS SULFATE 325 MG TAB PO SCH (10:00)
[2024-12-25] MEDS ORDERED: ALENDRONATE SODIUM 70 MG TAB PO SCH (06:00)
[2024-12-26] MEDS ORDERED: Methotrexate Sodium 2.5 MG TAB PO SCH (10:00)
== END 2024-12-22 07:45 | disposition left against medical advice (07) ==
LOC: ED 07:48 → EDHOLD 10:27 → 4E 11:45
PROVIDERS: Emergency Medicine; ADMIT Internal Medicine; ATTEND Internal Medicine
DX: R07.89 Other chest pain (principal); Z79.899 Other long term (current) drug therapy; Z98.890 Other specified postprocedural states; Z88.8 Allergy status to other drugs, medicaments and biological substances

== ENCOUNTER 2025-01-20 18:11 | Emergency (ER) | payer OTHER ==
[~2025-01-20] VITALS: Ht 162.5 cm; Wt 64.9 kg
[2025-01-20] MEDS ORDERED: Dexamethasone Sodium Phospha 20 MG/5 ML VIAL IM ONE (19:40)
[2025-01-20 21:30] VITALS: BP 142/86
[2025-01-20] MEDS ORDERED: MEDROL DOSEPAK4 MG PO (22:26)
[2025-01-20] MEDS ORDERED: Bactroban Oint22 GM T (23:02)
== END 2025-01-20 22:37 | disposition home or self-care (01) ==
LOC: ED 18:11
DX: M06.9 Rheumatoid arthritis, unspecified (principal); M81.0 Age-related osteoporosis without current pathological fracture; M79.671 Pain in right foot; M79.661 Pain in right lower leg; M54.9 Dorsalgia, unspecified; G43.909 Migraine, unspecified, not intractable, without status migrainosus; F14.10 Cocaine abuse, uncomplicated; F17.200 Nicotine dependence, unspecified, uncomplicated; Z86.73 Personal history of transient ischemic attack (TIA), and cerebral infarction without residual deficits; Z91.041 Radiographic dye allergy status; Z88.8 Allergy status to other drugs, medicaments and biological substances; Z98.51 Tubal ligation status; Z98.890 Other specified postprocedural states; Z96.642 Presence of left artificial hip joint; Z79.899 Other long term (current) drug therapy

== ENCOUNTER → 2025-02-02 | Outpatient (CLI) | payer OTHER | END | disposition home or self-care (01) | LOC: RAD 15:20 | PROVIDERS: ATTEND Internal Medicine | DX: S92.331G Displaced fracture of third metatarsal bone, right foot, subsequent encounter for fracture with delayed healing (principal); S92.341G Displaced fracture of fourth metatarsal bone, right foot, subsequent encounter for fracture with delayed healing; L03.116 Cellulitis of left lower limb; S99.101 Unspecified physeal fracture of right metatarsal; X58.XXXD Exposure to other specified factors, subsequent encounter ==

== ENCOUNTER 2025-02-27 22:18 | Emergency (ER) | payer OTHER ==
[2025-02-27 22:29] VITALS: BP 130/83
[2025-02-27] MEDS ORDERED: methylPREDNISolone sod succ 125 MG VIAL IM ONE (22:40)
[2025-02-27] MEDS ORDERED: PREDNISONE20 M1 PO (22:52)
== END 2025-02-27 22:59 | disposition home or self-care (01) ==
LOC: ED 22:18
DX: M06.842 Other specified rheumatoid arthritis, left hand (principal); M06.841 Other specified rheumatoid arthritis, right hand; Z91.041 Radiographic dye allergy status; Z88.8 Allergy status to other drugs, medicaments and biological substances; Z79.899 Other long term (current) drug therapy; Z96.642 Presence of left artificial hip joint; Z98.890 Other specified postprocedural states; Z87.891 Personal history of nicotine dependence

== ENCOUNTER 2025-03-18 13:12 | Emergency (ER) | payer OTHER ==
[~2025-03-18] VITALS: Ht 162.5 cm; Wt 65.8 kg
[2025-03-18 13:45] VITALS: BP 128/62
[2025-03-18] MEDS ORDERED: Dexamethasone Sodium Phospha 20 MG/5 ML VIAL IM ONE (14:10)
[2025-03-18] MEDS ORDERED: Ketorolac Tromethamine 30 MG/ML VIAL IM ONE (14:15)
[2025-03-18 14:30] LABS: HEMATOCRIT 41.1 % (37.0-47.0); MEAN CELL VOLUME 88.8 fl (81.0-99.0); MEAN CORPUSCULAR HGB 29.6 pg (27.0-31.0); MEAN CORPUSCULAR HGB CONC 33.3 g/dl (33.0-37.0); MEAN PLATELET VOLUME 10.8 fl (9.6-12.3); PLATELET COUNT AUTOMATED 308 10*3/uL (130-400); RED BLOOD COUNT 4.63 10*6/uL (4.10-5.10); RED CELL DISTRI WIDTH 14.6 % (0-14.5); WHITE BLOOD COUNT 8.4 10*3/uL (4.8-10.8)
[2025-03-18 14:31] LABS: MANUAL DIFF REFLEX YES
[2025-03-18 14:43] LABS: BUN 9 mg/dl (9-23); CHLORIDE 101 mmol/L (98-107); POTASSIUM 3.2 mmol/L (3.4-5.1)
[2025-03-18 14:47] LABS: BASOPHILS 2 % (0-1); PLATELET SUFFICIENCY NORMAL (NORMAL); TOTAL CELLS COUNTED 100 #CELLS
[2025-03-18] MEDS ORDERED: PREDNISONE20 M1 PO (15:07)
[2025-03-18] MEDS ORDERED: POTASSIUM CHLORIDE 20 MEQ TAB PO ONE (15:10)
== END 2025-03-18 15:11 | disposition home or self-care (01) ==
LOC: ED 13:12
PROVIDERS: Internal Medicine
DX: M06.9 Rheumatoid arthritis, unspecified (principal); G43.909 Migraine, unspecified, not intractable, without status migrainosus; Z79.899 Other long term (current) drug therapy; Z88.8 Allergy status to other drugs, medicaments and biological substances; Z91.041 Radiographic dye allergy status; Z98.51 Tubal ligation status; Z98.890 Other specified postprocedural states

== ENCOUNTER 2025-04-28 19:28 | Emergency (ER) | payer OTHER ==
[~2025-04-28] VITALS: Ht 162.5 cm; Wt 63.5 kg
[2025-04-28 19:48] VITALS: BP 136/81
[2025-04-28] MEDS ORDERED: PREDNISONE20 M1 PO (19:59)
== END 2025-04-28 20:12 | disposition home or self-care (01) ==
LOC: ED 19:28
DX: M06.9 Rheumatoid arthritis, unspecified (principal); F17.200 Nicotine dependence, unspecified, uncomplicated; Z91.041 Radiographic dye allergy status; Z88.8 Allergy status to other drugs, medicaments and biological substances; Z79.899 Other long term (current) drug therapy; Z98.890 Other specified postprocedural states

== ENCOUNTER 2025-05-08 15:23 | Emergency (ER) | payer OTHER ==
[2025-05-08 15:38] VITALS: BP 134/69
== END 2025-05-08 15:46 | disposition left against medical advice (07) ==
LOC: ED 15:23
DX: T41.291A Poisoning by other general anesthetics, accidental (unintentional), initial encounter (principal); F14.10 Cocaine abuse, uncomplicated; F17.200 Nicotine dependence, unspecified, uncomplicated; Z79.899 Other long term (current) drug therapy; Z88.8 Allergy status to other drugs, medicaments and biological substances; Z98.51 Tubal ligation status; Z98.890 Other specified postprocedural states; Y92.89 Other specified places as the place of occurrence of the external cause

== ENCOUNTER 2025-06-02 00:48 | Emergency (ER) | payer OTHER ==
[~2025-06-02] VITALS: Ht 157.4 cm; Wt 60.8 kg
[2025-06-02 02:27] LABS: URINE AMPHETAMINES Positive (1000ng/ml); URINE BARBITURATES Negative (200ng/ml); URINE BENZODIAZEPINES Negative (200ng/ml); URINE CANNABINOIDS (THC) Negative (50ng/ml); URINE COCAINE Negative (300ng/ml); URINE METHADONE Negative (300ng/ml); URINE OPIATES Negative (300ng/ml); URINE PHENCYCLIDINE Negative (25ng/ml)
[2025-06-02 02:31] LABS: BILIRUBIN Negative (Negative); BLOOD Negative (Negative); CLARITY Cloudy (Clear); COLOR Yellow (Yellow); KETONE 2+ (Negative); LEUKO ESTERASE 2+ (Negative); NITRITE Negative (Negative); PH 5.5 (4.5-8.0); SPECIFIC GRAVITY 1.025 (1.001-1.030); UROBILINOGEN 1.0 E.U./dl (0.0-1.0)
[2025-06-02] MEDS ORDERED: LORazepam 1 MG TAB PO ONE (02:40)
[2025-06-02 03:12] LABS: BACTERIA 2+; EPITHELIAL CELLS 16-20; WBC 21-30 wbc/hpf (0-5)
[2025-06-02 08:47] VITALS: BP 130/82
== END 2025-06-02 09:05 | disposition home or self-care (01) ==
LOC: ED 00:48
PROVIDERS: Internal Medicine
DX: F12.959 Cannabis use, unspecified with psychotic disorder, unspecified (principal); Z79.899 Other long term (current) drug therapy; Z88.8 Allergy status to other drugs, medicaments and biological substances; Z98.51 Tubal ligation status; Z98.890 Other specified postprocedural states; F17.200 Nicotine dependence, unspecified, uncomplicated

== ENCOUNTER 2025-06-05 18:11 | Emergency (ER) | payer OTHER ==
[~2025-06-05] VITALS: Ht 162.5 cm; Wt 63.5 kg
[2025-06-05 19:25] VITALS: BP 142/84
== END 2025-06-05 19:50 | disposition home or self-care (01) ==
LOC: ED 18:11
DX: M32.9 Systemic lupus erythematosus, unspecified (principal); F17.200 Nicotine dependence, unspecified, uncomplicated; Z91.041 Radiographic dye allergy status; Z88.8 Allergy status to other drugs, medicaments and biological substances; Z79.899 Other long term (current) drug therapy; Z98.890 Other specified postprocedural states; Z96.642 Presence of left artificial hip joint

== ENCOUNTER → 2025-06-26 | Outpatient (CLI) | payer OTHER | END | disposition home or self-care (01) | LOC: RAD 11:47 | PROVIDERS: ATTEND Internal Medicine | DX: M47.817 Spondylosis without myelopathy or radiculopathy, lumbosacral region (principal); M48.07 Spinal stenosis, lumbosacral region; M05.79 Rheumatoid arthritis with rheumatoid factor of multiple sites without organ or systems involvement; M85.80 Other specified disorders of bone density and structure, unspecified site ==

== ENCOUNTER 2025-06-30 11:30 | Emergency (ER) | payer OTHER ==
[~2025-06-30] VITALS: Ht 162.5 cm; Wt 61.2 kg
[2025-06-30 11:42] VITALS: BP 108/91
== END 2025-06-30 12:19 | disposition home or self-care (01) ==
LOC: ED 11:30
DX: M06.9 Rheumatoid arthritis, unspecified (principal); G89.29 Other chronic pain; K21.9 Gastro-esophageal reflux disease without esophagitis; M81.0 Age-related osteoporosis without current pathological fracture; F32.A Depression, unspecified; F19.10 Other psychoactive substance abuse, uncomplicated; F17.200 Nicotine dependence, unspecified, uncomplicated; Z91.041 Radiographic dye allergy status; Z88.8 Allergy status to other drugs, medicaments and biological substances; Z79.899 Other long term (current) drug therapy; Z96.652 Presence of left artificial knee joint; Z98.890 Other specified postprocedural states

== ENCOUNTER 2025-07-18 18:42 | Emergency (ER) | payer OTHER ==
[~2025-07-18] VITALS: Ht 162.5 cm; Wt 59.0 kg
[2025-07-18 18:56] VITALS: BP 138/77
[2025-07-18] MEDS ORDERED: PREDNISONE10 M1 PO (20:08)
== END 2025-07-18 21:01 | disposition home or self-care (01) ==
LOC: ED 18:42
DX: M32.9 Systemic lupus erythematosus, unspecified (principal); F31.9 Bipolar disorder, unspecified; K21.9 Gastro-esophageal reflux disease without esophagitis; M81.0 Age-related osteoporosis without current pathological fracture; Z91.041 Radiographic dye allergy status; Z88.8 Allergy status to other drugs, medicaments and biological substances; Z79.899 Other long term (current) drug therapy; Z96.652 Presence of left artificial knee joint; Z98.890 Other specified postprocedural states; F17.200 Nicotine dependence, unspecified, uncomplicated

== ENCOUNTER → 2025-07-19 | Outpatient (CLI) | payer OTHER | END | disposition home or self-care (01) | LOC: ORTHO | PROVIDERS: ATTEND Orthopaedic Surgery | DX: Z96.642 Presence of left artificial hip joint (principal) ==

== ENCOUNTER 2025-08-14 13:35 | Emergency (ER) | payer OTHER ==
[~2025-08-14] VITALS: Ht 162.5 cm; Wt 61.2 kg
[2025-08-14 13:41] VITALS: BP 146/77
[2025-08-14] MEDS ORDERED: PREDNISONE20 M1 PO (14:14)
== END 2025-08-14 14:30 | disposition home or self-care (01) ==
LOC: ED 13:35
DX: M25.571 Pain in right ankle and joints of right foot (principal); M25.572 Pain in left ankle and joints of left foot; M25.561 Pain in right knee; M25.562 Pain in left knee; R22.43 Localized swelling, mass and lump, lower limb, bilateral; F17.210 Nicotine dependence, cigarettes, uncomplicated; Z98.890 Other specified postprocedural states; Z88.8 Allergy status to other drugs, medicaments and biological substances